=== PATIENT | male | born 1965 | race Caucasian/White ===

== ENCOUNTER 2022-04-02 17:56 | Inpatient (IN) | payer MEDICARE, MEDICAID, SELFPAY ==
[2022-04-02 18:00] VITALS: BP 113/68; PULSE 82; TEMP 36.2; O2SAT 95
--- NOTE | 2022-04-02 19:18 | PC.ADMIT ---
pt is 56 year male who present to [facility] after his locked him out and he was running down the street yelling at cars. pt reports a not great relationship with his and she did not refill his medication on time. during admission, pt is making involuntary movements and answering questions with long answers. pt had WNL vitals. pt reports to smoking, but does not want cessation. pt reports no visual hallucination, but is staring at something in the corner of the room. pt ate dinner and is lying in bed. start treatment plan and continue safety checks.
--- NOTE | 2022-04-02 19:22 | PC.NURSE ---
pt reported to smoking, but refused cessation
--- NOTE | 2022-04-03 | ECG_ITS ---
Test Reason : QTC CHECK Blood Pressure : / mmHG Vent. Rate : 071 BPM Atrial Rate : 071 BPM P-R Int : 150 ms QRS Dur : 086 ms QT Int : 370 ms P-R-T Axes : 059 -07 043 degrees QTc Int : 402 ms Normal sinus rhythm with sinus arrhythmia Normal ECG No previous ECGs available Referred By: James Ashby Electronically Signed By:ANEL SOTO MD
[2022-04-03 08:00] VITALS: BP 121/67; PULSE 53; TEMP 36
[2022-04-03 08:26] LABS: Estimated Average Glucose 126 mg/dL
[2022-04-03 08:29] LABS: Cholesterol 159 mg/dL; HDL Cholesterol 46 mg/dL; LDL Cholesterol Calculated 98 mg/dl; Magnesium 2.1 mg/dL (1.6-2.6); Triglycerides 78 mg/dL
[2022-04-03 08:50] LABS: Free T4 (Free Thyroxine) 1.11 ng/dL (0.71-1.85); Thyroid Stimulating Hormone 1.24 uIU/mL (0.32-4.0)
--- NOTE | 2022-04-03 08:54 | HO.PM.IMCN ---
History of Present Illness Data of Consult Service Date: 04/03/22 Primary Care Provider: Unknown Physician HPI Reason for consult: routine medical H&P This is a 56 yo M with a PMH of pre-DM and HTN who is admitted to . Medical consult has been requested for routine medical H&P per protocol. Pt is seen and examined on the inpatient psych unit. He denies any current medical complaints. States he has a history of pre-DM and takes metformin. He reports not being fully compliant with therapy. PMH Pre-diabetes HTN PSH Denies any surgical history FH Mental health issues SH Smokes tobacco, drinks alcohol infrequently -- less than once a month, denies illicit substance abuse PMFSH Social History Household Members: Spouse Housing: Apartment Do you presently have visiting nurse or other home services: No Patient Tobacco Use Status: Current everyday Tobacco user Tobacco use type: Cigarette Cigarette Packs Per Day: 1 Cigarettes Per Day: 20.0 Smoked in Last 30 Days: Yes Patient Interested in Nicotine Replacement: No Patient Given Instructions on How to Stop Smoking: Yes Date Education Initiated: 04/02/22 Second Hand Smoke Exposure: No Use of substances other than those prescribed or required for medical reasons: No Have you been hit, kicked, punched, or otherwise hurt by someone within the past year? If so, by whom?: No Do you feel safe in your current relationship?: Yes Is there a partner from a previous relationship who is making you feel unsafe now?: No Are you made to feel afraid or neglected: No Advance Directives: No Advance Directives Information Provided: Yes Do you have thoughts of harming others: None Do you have a plan to hurt others: No Plan Recently lost weight without trying: No How much weight loss: Not applicable Eating poorly because of decreased appetite: No Nutrition screen score: 0 Nutrition Risks: No Nutritional Risk Poor oral hygiene: No Meds Allergies Allergy/AdvReac Type Severity Reaction Status Date / Time No Known Allergies Allergy Verified 04/02/22 14:28 Active Medications: Current Medications Acetaminophen (Acetaminophen 325 Mg Tablet) 650 mg PO Q6H PRN PRN Reason: Headache/Pain Mild Scale (1-3) Al Hydroxide/Mg Hydroxide (Magnesium Hydrox/Alum Hydrox 30 Ml Oral.Susp) 30 ml PO Q6H PRN PRN Reason: Heartburn/Nausea Hydroxyzine HCl (Hydroxyzine Hcl 25 Mg Tablet) 25 mg PO Q6H PRN PRN Reason: Anxiety Magnesium Hydroxide (Milk Of Magnesia 30 Ml Oral.Susp) 30 ml PO DAILY PRN PRN Reason: Constipation Trazodone HCl (Trazodone Hcl 50 Mg Tablet) 50 mg PO BEDTIME PRN PRN Reason: Insomnia Physical Exam Vital Signs and Narrative: Vital Signs: Last Vital Signs Temp 97.1 F 04/02/22 18:00 Pulse 82 04/02/22 18:00 BP 113/68 04/02/22 18:00 Pulse Ox 95 04/02/22 18:00 O2 Del Method 04/02/22 18:00 Const: Other: Gen - awake and alert HEENT - EOMI CVS - S1S2, RRR Lungs - clear, no distress Abd - soft, nt Ext - no edema Neuro - non-focal exam; CN 2-12 intact bilaterally Results Labs Labs: Laboratory Results - last 24 hr 04/03/22 04/03/22 07:54 07:54 Estimat Average Glucose 126 Hemoglobin A1c % 6.0 Magnesium 2.1 Triglycerides 78 Cholesterol 159 LDL Cholesterol, Calc 98 HDL Cholesterol 46 TSH 1.24 Free T4 1.11 Assessment and Plan (1) Routine medical exam: Status: Acute Plan 56 yo M admitted to inpatient psych. Medical consult requested for routine medical H&P. Pt appears to be medically stable. He has a medical history of DM and HTN. Would recommend to continue his baseline medications. Will sign off at this time. Please reconsult if any questions. Pt seen/examined and case d/w Dr. Mosley.
--- NOTE | 2022-04-03 10:23 | P.HPPS_ITS ---
HPI Date of Service: 04/03/22 Chief Complaint: Anxiety Sources of Information: patient interviewed, chart reviewed and crisis/core team assessment reviewed HPI Subjective Notes: [place] Warning and Conditional Voluntary Narrative: Patient is a 56-year-old male with history of bipolar disorder (rule out schizoaffective) who presents for disorganized behavior, running down the street yelling and picked up by police, in the face of being off clozapine for several weeks. Patient is emotionally labile, disorganized in speech and behavior, talking in different intonations, singing and dancing around and is thus a limited historian; that said, he is trying to be cooperative; patient once got emotionally upset and late on the floor and banged his head (towards the crown of head). Patient says he has not slept for several days. He says he has been off Clozaril because he and his got in an argument and she has not picked up Clozaril script. He later said she gives him mixed messages on whether not he should take it and he gets confused. Denies any SI or HI; he denies any AVH; denies paranoid ideations. He says he wants to get back on clozapine. Denies any drug or alcohol abuse. Past Psychiatric History: Psychiatric admission October 2021 at [facility] Psychiatric admission November 2021 at [facility] He says he was admitted to [facility] a few months ago but there is no record insurance underwriter sales can find. Medical Evaluation Reviewed: Yes [facility], [facility] Medical History (Updated 04/03/22 @ 10:56 by James Ashby MD) CLAYTON (generalized anxiety disorder) Schizoaffective disorder Family History: Deferred for now Social History: Lives at home with his Substance History: Denies Trauma History: Deferred for now Diagnostics Vital Signs (24Hr): Vital Signs - 24 hr 04/02/22 18:00 Temperature 97.1 F Pulse Rate 82 Blood Pressure 113/68 Pulse Oximetry 95 Oxygen Delivery Method Room Air Labs Labs: Laboratory Results - last 48 hr 04/03/22 04/03/22 07:54 07:54 Estimat Average Glucose 126 Hemoglobin A1c % 6.0 Magnesium 2.1 Triglycerides 78 Cholesterol 159 LDL Cholesterol, Calc 98 HDL Cholesterol 46 TSH 1.24 Free T4 1.11 Meds/Allergies Allergies Allergies Allergy/AdvReac Type Severity Reaction Status Date / Time No Known Allergies Allergy Verified 04/02/22 14:28 Mental Status Exam Mental Status Exam Narrative: Pt is alert and oriented; behavior is cooperative, friendly and calm; patient is not in distress; dressed in casual attire with unkempt hair but adequate hygiene; mood and affect are labile; eye contact appropriate; Speech is odd rate, prosody, mild-moderately pressured, switching to different volumes; psychomotor agitation present; thought process can be goal directed but is also disorganized; Thought content is on various things, but mostly focused on wanting help;no delusional content or paranoid ideations expressed; denies any SI/HI. Denies AVH; Patients insight and judgment are impaired Assessment & Plan Assessment & Plan (1) Schizoaffective disorder: Status: Acute Code(s): F25.9 - Schizoaffective disorder, unspecified (2) CLAYTON (generalized anxiety disorder): Status: Acute Code(s): F41.1 - Generalized anxiety disorder Plan Patient is a 56-year-old male with history of bipolar disorder (rule out schizoaffective) who presents for disorganized behavior, running down the street yelling and picked up by police, in the face of being off clozapine for several weeks -patient wants to get back on clozapine; insurance underwriter sales restarted him in [place]; insurance underwriter sales also reviewed risks/side effects of clozapine which patient mostly already knew. PLAN: CV q15 min checks; will monitor, may need more frequent obs START Clozapine 25 mg BID; titrate to home dose of 300mg; ANC on 04/02 was 5.4 Clonazepam 0.5 mg b.i.d.; may need more as clozapine is titrated. 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
[2022-04-03 11:41] LABS: Folate 12.7 ng/mL (> or = 4.0); Vitamin B12 303 pg/mL (200-900)
[2022-04-03] MEDS: cloZAPine 25 MG TABLET PO (12:19)
[2022-04-03] MEDS: clonazePAM 0.5 MG TABLET PO (12:19)
[2022-04-03 18:00] VITALS: RESP 16
[2022-04-04 06:00] VITALS: BP 113/72; PULSE 80; RESP 20; TEMP 36.8; O2SAT 97
[2022-04-04] MEDS: clonazePAM 0.5 MG TABLET PO ×2 (08:38→19:53)
[2022-04-04] MEDS: cloZAPine 25 MG TABLET PO (08:39)
--- NOTE | 2022-04-04 13:59 | HO.PSYCHPN ---
Subjective Subjective Date of Service: 04/04/22 Reason For Visit: Anxiety Interim History: Chart reviewed. Discussed with Nursing. High energy and flight of ideas. Disruptive with roommate last night by turning the lights on consistently. Irritable this morning. Does appear to be slightly elated, pressured speech and flight of ideas. Denied depression. Denied paranoia or hallucinations. No SI. Aware Clozaril dose being titrated Medication Compliance: Yes Side effects from medications: No Attending Groups: No Review of Systems Acute medical concerns: No Review of Systems Review of Systems Unremarkable Mental Status Exam Mental Status Exam Narrative: Pleasant with fiction and nonfiction prose writer. Engaged. Self-care is poor. Pressured speech. Flight of ideas. Slightly elated. No SI or HI. No overt delusions or hallucinations. Insight and judgment does appear limited at times Diagnostics Vital Signs (24Hr): Vital Signs - 24 hr 04/03/22 18:00 04/04/22 06:00 Temperature 98.2 F Pulse Rate 80 Respiratory Rate 16 20 Blood Pressure 113/72 Pulse Oximetry 97 Oxygen Delivery Method Room Air Labs Labs: Laboratory Results - last 48 hr 04/03/22 04/03/22 04/03/22 07:54 07:54 07:54 Estimat Average Glucose 126 Hemoglobin A1c % 6.0 Magnesium 2.1 Triglycerides 78 Cholesterol 159 LDL Cholesterol, Calc 98 HDL Cholesterol 46 Vitamin B12 303 Folate 12.7 TSH 1.24 Free T4 1.11 Medications Medications Current Medications Acetaminophen (Acetaminophen 325 Mg Tablet) 650 mg PO Q6H PRN PRN Reason: Headache/Pain Mild Scale (1-3) Al Hydroxide/Mg Hydroxide (Magnesium Hydrox/Alum Hydrox 30 Ml Oral.Susp) 30 ml PO Q6H PRN PRN Reason: Heartburn/Nausea Clonazepam (Clonazepam 0.5 Mg Tablet) 0.5 mg PO BID [facility] Last Admin: 04/04/22 08:38 Dose: 0.5 mg Clozapine (Clozapine 25 Mg Tablet) 25 mg PO BID [facility] Last Admin: 04/04/22 08:39 Dose: 25 mg Hydroxyzine HCl (Hydroxyzine Hcl 25 Mg Tablet) 25 mg PO Q6H PRN PRN Reason: Anxiety Magnesium Hydroxide (Milk Of Magnesia 30 Ml Oral.Susp) 30 ml PO DAILY PRN PRN Reason: Constipation Trazodone HCl (Trazodone Hcl 50 Mg Tablet) 50 mg PO BEDTIME PRN PRN Reason: Insomnia Allergies Allergies Allergy/AdvReac Type Severity Reaction Status Date / Time No Known Allergies Allergy Verified 04/02/22 14:28 Assessment & Plan Assessment & Plan (1) Schizoaffective disorder: Status: Acute Code(s): F25.9 - Schizoaffective disorder, unspecified (2) CLAYTON (generalized anxiety disorder): Status: Acute Code(s): F41.1 - Generalized anxiety disorder Plan Patient is a 56-year-old male with history of bipolar disorder (rule out schizoaffective) who presents for disorganized behavior, running down the street yelling and picked up by police, in the face of being off clozapine for several weeks -patient wants to get back on clozapine; fiction and nonfiction prose writer restarted him in [employer]; fiction and nonfiction prose writer also reviewed risks/side effects of clozapine which patient mostly already knew. PLAN: CV q15 min checks; will monitor, may need more frequent obs START Clozapine 25 mg BID; titrate to home dose of 300mg; ANC on 04/02 was 5.4 Clonazepam 0.5 mg b.i.d.; may need more as clozapine is titrated. Straight Knife Cutter Machine Reviewed Labs from [place] [facility] where pt transfered from: CBC, Lytes, Bun/Cr, Ca, UA, UDS all WNL 04/04/2022: Will increase nighttime Clozaril to 50 mg, with AM clozapine 25mg I spent minutes with the patient and/or on the patient floor today, greater than?50% of which was spent counseling/coordinating care. Reason for contiued inpatient stay Substantial Risk for: inability to function
[2022-04-04 18:00] VITALS: BP 129/78; PULSE 76; RESP 16; TEMP 36.6; O2SAT 97
[2022-04-04] MEDS: cloZAPine 25 MG TABLET 50 MG PO (19:53)
[2022-04-05 06:00] VITALS: BP 114/78; PULSE 79; RESP 20; TEMP 36.4; O2SAT 97
[2022-04-05] MEDS: cloZAPine 25 MG TABLET PO (09:12)
[2022-04-05] MEDS: clonazePAM 0.5 MG TABLET PO ×2 (09:12→19:42)
--- NOTE | 2022-04-05 12:02 | P.PNPSI_ITS ---
Subjective Subjective Date of Service: 04/05/22 Reason For Visit: Anxiety Interim History: Has been irritable in the community. Actively hallucinating. Irritable this morning. Does appear to be elated, pressured speech and flight of ideas. Denied depression. Denied paranoia or hallucinations. No SI. Aware Clozaril dose being titrated Medication Compliance: Yes Side effects from medications: No Attending Groups: Intermittent Review of Systems Acute medical concerns: No Review of Systems Review of Systems Unremarkable Mental Status Exam Mental Status Exam Narrative: Pleasant with underwriter solicitation director. Engaged. Self-care is poor. Pressured speech. Flight of ideas. Slightly elated. No SI or HI. No overt delusions or hallucinations. Insight and judgment does appear limited at times Diagnostics Vital Signs (24Hr): Vital Signs - 24 hr 04/04/22 18:00 04/05/22 06:00 Temperature 97.8 F 97.6 F Pulse Rate 76 79 Respiratory Rate 16 20 Blood Pressure 129/78 114/78 Pulse Oximetry 97 97 Oxygen Delivery Method Room Air Room Air Medications Medications Current Medications Acetaminophen (Acetaminophen 325 Mg Tablet) 650 mg PO Q6H PRN PRN Reason: Headache/Pain Mild Scale (1-3) Al Hydroxide/Mg Hydroxide (Magnesium Hydrox/Alum Hydrox 30 Ml Oral.Susp) 30 ml PO Q6H PRN PRN Reason: Heartburn/Nausea Clonazepam (Clonazepam 0.5 Mg Tablet) 0.5 mg PO BID [facility] Last Admin: 04/05/22 09:12 Dose: 0.5 mg Clozapine (Clozapine 25 Mg Tablet) 25 mg PO DAILY [facility] Last Admin: 04/05/22 09:12 Dose: 25 mg Clozapine (Clozapine 25 Mg Tablet) 50 mg PO BEDTIME [facility] Last Admin: 04/04/22 19:53 Dose: 50 mg Hydroxyzine HCl (Hydroxyzine Hcl 25 Mg Tablet) 25 mg PO Q6H PRN PRN Reason: Anxiety Magnesium Hydroxide (Milk Of Magnesia 30 Ml Oral.Susp) 30 ml PO DAILY PRN PRN Reason: Constipation Trazodone HCl (Trazodone Hcl 50 Mg Tablet) 50 mg PO BEDTIME PRN PRN Reason: Insomnia Allergies Allergies Allergy/AdvReac Type Severity Reaction Status Date / Time No Known Allergies Allergy Verified 04/02/22 14:28 Assessment & Plan Assessment & Plan (1) Schizoaffective disorder: Status: Acute Code(s): F25.9 - Schizoaffective disorder, unspecified (2) CLAYTON (generalized anxiety disorder): Status: Acute Code(s): F41.1 - Generalized anxiety disorder Plan Patient is a 56-year-old male with history of bipolar disorder (rule out schizoaffective) who presents for disorganized behavior, running down the street yelling and picked up by police, in the face of being off clozapine for several weeks -patient wants to get back on clozapine; underwriter solicitation director restarted him in [employer]; underwriter solicitation director a lso reviewed risks/side effects of clozapine which patient mostly already knew. PLAN: CV q15 min checks; will monitor, may need more frequent obs START Clozapine 25 mg BID; titrate to home dose of 300mg; ANC on 04/02 was 5.4 Clonazepam 0.5 mg b.i.d.; may need more as clozapine is titrated. Center Manager Reviewed Labs from [place] [facility] where pt transfered from: CBC, Lytes, Bun/Cr, Ca, UA, UDS all WNL 04/04/2022: Will increase nighttime Clozaril to 50 mg, with AM clozapine 25mg 04/05/2022: Will increase nighttime Clozaril to 75 mg and continue a.m. Clozaril 25 mg I spent minutes with the patient and/or on the patient floor today, greater than?50% of which was spent counseling/coordinating care. Reason for contiued inpatient stay Substantial Risk for: harm to others and inability to function
[2022-04-05 18:00] VITALS: BP 143/77; PULSE 100; RESP 16; TEMP 36.3; O2SAT 99
[2022-04-05] MEDS: cloZAPine 25 MG TABLET 75 MG PO (19:42)
[2022-04-06 08:09] VITALS: BP 137/90; PULSE 82; RESP 16; TEMP 36.8; O2SAT 98
[2022-04-06] MEDS: clonazePAM 0.5 MG TABLET PO ×3 (08:42→23:32)
[2022-04-06] MEDS: cloZAPine 25 MG TABLET PO (08:42)
[2022-04-06] MEDS: OLANZapine 2.5 MG TABLET PO ×2 (14:11→23:31)
--- NOTE | 2022-04-06 16:17 | P.PNPSI_ITS ---
Subjective Subjective Date of Service: 04/06/22 Reason For Visit: Anxiety Interim History: Patient remains manic, dramatically flopping to the ground at times, spinning and dancing leaping in the hallway, singing; odd intonation. Over the weekend, Patient upset was not given permission to shave; policy writer typist discussed with patient and explained if he was able to nod flail his arms with a razor, he could shave; initially gratefully accepted plan, however then got very upset and yelled about it. Patient was able to calm self down and later in the day was able to successfully shape without problems. Patient shared with policy writer typist that in the past he is taking Zyprexa as well and agrees to having it scheduled and available as a p.r.n. while clozapine is titrating Mental Status Exam Mental Status Exam Narrative: Pt is alert and oriented; behavior is disorganized and while sometimes calm, cooperative and friendly, often hyperactive, dancing, leaping and easily agitated; patient is not in distress; dressed in casual attire with scruffy facial hair but adequate hygiene; mood and affect are labile; eye contact appropriate; Speech is odd rate, prosody, mild-moderately pressured, switching to different volumes; psychomotor agitation present; thought process can be goal directed but is also disorganized; Thought content is on various things, but mostly focused on wanting help;no delusional content or paranoid ideations expressed; denies any SI/HI. Denies AVH; Patients insight and judgment are impaired Diagnostics Vital Signs (24Hr): Vital Signs - 24 hr 04/05/22 18:00 04/06/22 08:09 Temperature 97.4 F 98.3 F Pulse Rate 100 82 Respiratory Rate 16 16 Blood Pressure 143/77 H 137/90 H Pulse Oximetry 99 98 Oxygen Delivery Method Room Air Room Air Medications Medications Current Medications Acetaminophen (Acetaminophen 325 Mg Tablet) 650 mg PO Q6H PRN PRN Reason: Headache/Pain Mild Scale (1-3) Al Hydroxide/Mg Hydroxide (Magnesium Hydrox/Alum Hydrox 30 Ml Oral.Susp) 30 ml PO Q6H PRN PRN Reason: Heartburn/Nausea Clonazepam (Clonazepam 0.5 Mg Tablet) 0.5 mg PO TID [facility] Last Admin: 04/06/22 14:11 Dose: 0.5 mg Clozapine (Clozapine 25 Mg Tablet) 25 mg PO DAILY [facility] Last Admin: 04/06/22 08:42 Dose: 25 mg Clozapine (Clozapine 100 Mg Tablet) 100 mg PO BEDTIME [facility] Hydroxyzine HCl (Hydroxyzine Hcl 25 Mg Tablet) 25 mg PO Q6H PRN PRN Reason: Anxiety Lorazepam (Lorazepam 1 Mg Tablet) 1 mg PO TID PRN PRN Reason: agitation/anxiety Magnesium Hydroxide (Milk Of Magnesia 30 Ml Oral.Susp) 30 ml PO DAILY PRN PRN Reason: Constipation Olanzapine (Olanzapine 2.5 Mg Tablet) 2.5 mg PO TID PRN PRN Reason: anxiety/agitation Last Admin: 04/06/22 14:11 Dose: 2.5 mg Olanzapine (Olanzapine 2.5 Mg Tablet) 2.5 mg PO BID [facility] Trazodone HCl (Trazodone Hcl 50 Mg Tablet) 50 mg PO BEDTIME PRN PRN Reason: Insomnia Allergies Allergies Allergy/AdvReac Type Severity Reaction Status Date / Time No Known Allergies Allergy Verified 04/02/22 14:28 Assessment & Plan Assessment & Plan (1) Schizoaffective disorder: Status: Acute Code(s): F25.9 - Schizoaffective disorder, unspecified (2) CLAYTON (generalized anxiety disorder): Status: Acute Code(s): F41.1 - Generalized anxiety disorder Plan Patient is a 56-year-old male with history of bipolar disorder (rule out schizoaffective) who presents for disorganized behavior, running down the street yelling and picked up by police, in the face of being off clozapine for several weeks -patient wants to get back on clozapine; policy writer typist restarted him in [place]; policy writer typist also reviewed risks/side effects of clozapine which patient mostly already knew. 04/04/2022: Will increase nighttime Clozaril to 50 mg, with AM clozapine 25mg 04/05/2022: Will increase nighttime Clozaril to 75 mg and continue a.m. Clozaril 25 mg 04/06/22 remains disorganized, manic, singing, dancing and easily triggered into anger however has remained redirectable. Agrees to Zyprexa both scheduled and as p.r.n. for agitation while clozapine is titrating. Says he is taking in the past. PLAN: CV q15 min checks; will monitor, may need more frequent obs Clozapine 25mg Qam Clozapine 100mg qhs (will titrate total daily dose to home dose of 300mg; ANC on 04/02 was 5.4 Added Zyprexa 2.5mg BID scheduled (will see if low-dose is sufficient) Added Ativan and zyprexa as PRN Increased to Clonazepam 0.5 mg T.i.d.; may need more as clozapine is titrated. Highway Worker Reviewed Labs from [place] [facility] where pt transfered from: CBC, Lytes, Bun/Cr, Ca, UA, UDS all WNL I spent minutes with the patient and/or on the patient floor today, greater than?50% of which was spent counseling/coordinating care. Patient educated on: diagnosis and medication risk/benefits Informed Consent: understands and further education needed Reason for contiued inpatient stay Substantial Risk for: inability to function
[2022-04-06] MEDS: LORazepam 1 MG TABLET PO (17:33)
[2022-04-06 17:35] VITALS: BP 131/83; PULSE 95; TEMP 37.1
[2022-04-06] MEDS: cloZAPine 100 MG TABLET PO (23:31)
[2022-04-07 07:45] VITALS: BP 129/82; PULSE 93; RESP 16; TEMP 36.6; O2SAT 98
[2022-04-07] MEDS: OLANZapine 2.5 MG TABLET PO ×2 (07:56→21:10)
[2022-04-07] MEDS: clonazePAM 0.5 MG TABLET PO ×3 (07:56→21:10)
[2022-04-07] MEDS: cloZAPine 25 MG TABLET PO (07:56)
--- NOTE | 2022-04-07 10:25 | HO.PSYCHPN ---
Subjective Subjective Date of Service: 04/07/22 Reason For Visit: Anxiety Interim History: Patient more behaviorally calm today Overnight, patient got very upset and ripped his T shirt however he was redirectable.Today, with Zyprexa 2.5 b.i.d..? Coin Machine Collector Supervisor discussed this with patient to agrees.? He said that he took Zyprexa in the 90s and liked it.? Patient said that he used to be on clozapine 400 mg but it was reduced to 300.? He said a at some time he hopes to see if clozapine 200 mg would be sufficient.? He agrees however to get back to 300 mg and his baseline and then once stable to work with outpatient provider to see if he can lower dose at that time Mental Status Exam Mental Status Exam Narrative: Pt is alert and oriented; behavior is disorganized and while sometimes calm, cooperative and friendly, often hyperactive, dancing, leaping and easily agitated; patient is not in distress; dressed in casual attire with scruffy facial hair but adequate hygiene; mood and affect are labile; eye contact appropriate; Speech is odd rate, prosody, mild-moderately pressured, switching to different volumes; psychomotor agitation present; thought process can be goal directed but is also disorganized; Thought content is on various things, but mostly focused on wanting help;no delusional content or paranoid ideations expressed; denies any SI/HI. Denies AVH; Patients insight and judgment are impaired Diagnostics Vital Signs (24Hr): Vital Signs - 24 hr 04/06/22 17:35 04/07/22 07:45 Temperature 98.7 F 97.8 F Pulse Rate 95 93 Respiratory Rate 16 Blood Pressure 131/83 129/82 Pulse Oximetry 98 Oxygen Delivery Method Room Air Medications Medications Current Medications Acetaminophen (Acetaminophen 325 Mg Tablet) 650 mg PO Q6H PRN PRN Reason: Headache/Pain Mild Scale (1-3) Al Hydroxide/Mg Hydroxide (Magnesium Hydrox/Alum Hydrox 30 Ml Oral.Susp) 30 ml PO Q6H PRN PRN Reason: Heartburn/Nausea Clonazepam (Clonazepam 0.5 Mg Tablet) 0.5 mg PO TID [facility] Last Admin: 04/07/22 07:56 Dose: 0.5 mg Clozapine (Clozapine 25 Mg Tablet) 25 mg PO DAILY [facility] Last Admin: 04/07/22 07:56 Dose: 25 mg Hydroxyzine HCl (Hydroxyzine Hcl 25 Mg Tablet) 25 mg PO Q6H PRN PRN Reason: Anxiety Lorazepam (Lorazepam 1 Mg Tablet) 1 mg PO TID PRN PRN Reason: agitation/anxiety Last Admin: 04/06/22 17:33 Dose: 1 mg Magnesium Hydroxide (Milk Of Magnesia 30 Ml Oral.Susp) 30 ml PO DAILY PRN PRN Reason: Constipation Olanzapine (Olanzapine 2.5 Mg Tablet) 2.5 mg PO TID PRN PRN Reason: anxiety/agitation Last Admin: 04/06/22 14:11 Dose: 2.5 mg Olanzapine (Olanzapine 2.5 Mg Tablet) 2.5 mg PO BID [facility] Last Admin: 04/07/22 07:56 Dose: 2.5 mg Trazodone HCl (Trazodone Hcl 50 Mg Tablet) 50 mg PO BEDTIME PRN PRN Reason: Insomnia Allergies Allergies Allergy/AdvReac Type Severity Reaction Status Date / Time No Known Allergies Allergy Verified 04/02/22 14:28 Assessment & Plan Assessment & Plan (1) Schizoaffective disorder: Status: Acute Code(s): F25.9 - Schizoaffective disorder, unspecified (2) CLAYTON (generalized anxiety disorder): Status: Acute Code(s): F41.1 - Generalized anxiety disorder Plan Patient is a 56-year-old male with history of bipolar disorder (rule out schizoaffective) who presents for disorganized behavior, running down the street yelling and picked up by police, in the face of being off clozapine for several weeks -patient wants to get back on clozapine; physician underwriter restarted him in [employer]; physician underwriter also reviewed risks/side effects of clozapine which patient mostly already knew. 04/04/2022: Will increase nighttime Clozaril to 50 mg, with AM clozapine 25mg 04/05/2022: Will increase nighttime Clozaril to 75 mg and continue a.m. Clozaril 25 mg 04/06/22 remains disorganized, manic, singing, dancing and easily triggered into anger however has remained redirectable. Agrees to Zyprexa both scheduled and as p.r.n. for agitation while clozapine is titrating. Says he is taking in the past. 04/07 Mild improvement with Zyprexa 2.5 b.i.d. and clonazepam increase to t.i.d. , both scheduled.? Continue to titrate clozapine PLAN: CV q15 min checks; Clozapine 25mg Qam TITRATE Clozapine; increased to 125mg qhs (will titrate total daily dose to home dose of 300mg; ANC on 04/02 was 5.4 Added Zyprexa 2.5mg BID scheduled (will see if low-dose is sufficient) Added Ativan and zyprexa as PRN Increased to Clonazepam 0.5 mg T.i.d.; may need more as clozapine is titrated. Coin Machine Collector Supervisor Reviewed Labs from [place] [facility] where pt transfered from: CBC, Lytes, Bun/Cr, Ca, UA, UDS all WNL I spent minutes with the patient and/or on the patient floor today, greater than?50% of which was spent counseling/coordinating care. Patient educated on: diagnosis and medication risk/benefits Informed Consent: understands Reason for contiued inpatient stay Substantial Risk for: inability to function
[2022-04-07 21:00] VITALS: BP 119/59; PULSE 89; TEMP 36.6
[2022-04-07] MEDS: cloZAPine 25 MG TABLET 125 MG PO (21:10)
[2022-04-08 07:45] VITALS: BP 124/74; PULSE 96; TEMP 35.9; O2SAT 98
--- NOTE | 2022-04-08 08:47 | HO.PSYCHPN ---
Subjective Subjective Date of Service: 04/08/22 Reason For Visit: Anxiety Interim History: Patient remains animated and dancing around in the hallway, however less so than previously and overall more calm. Patient has tied up his hospital gown and sure it into abrade that he wears around his arm and bizarre fashion. He says he likes to Braid. He is sleeping well and feels that medications are helping. No complaints and no requests. Mental Status Exam Mental Status Exam Narrative: Pt is alert and oriented; behavior is disorganized and while more calm overall, can also be hyperactive, dancing, leaping and easily agitated; patient is not in distress; dressed in casual attire with scruffy facial hair but adequate hygiene; mood and affect are labile; eye contact appropriate; Speech is odd rate, prosody, mild-moderately pressured, switching to different volumes; psychomotor agitation present; thought process can be goal directed but is also disorganized; Thought content is on various things, but mostly focused on wanting help;no delusional content or paranoid ideations expressed; denies any SI/HI. Denies AVH; Patients insight and judgment are impaired Diagnostics Vital Signs (24Hr): Vital Signs - 24 hr 04/07/22 21:00 Temperature 97.8 F Pulse Rate 89 Blood Pressure 119/59 L Medications Medications Current Medications Acetaminophen (Acetaminophen 325 Mg Tablet) 650 mg PO Q6H PRN PRN Reason: Headache/Pain Mild Scale (1-3) Al Hydroxide/Mg Hydroxide (Magnesium Hydrox/Alum Hydrox 30 Ml Oral.Susp) 30 ml PO Q6H PRN PRN Reason: Heartburn/Nausea Clonazepam (Clonazepam 0.5 Mg Tablet) 0.5 mg PO TID [facility] Last Admin: 04/07/22 21:10 Dose: 0.5 mg Clozapine (Clozapine 25 Mg Tablet) 25 mg PO DAILY [facility] Last Admin: 04/07/22 07:56 Dose: 25 mg Clozapine (Clozapine 25 Mg Tablet) 125 mg PO BEDTIME [facility] Last Admin: 04/07/22 21:10 Dose: 125 mg Hydroxyzine HCl (Hydroxyzine Hcl 25 Mg Tablet) 25 mg PO Q6H PRN PRN Reason: Anxiety Lorazepam (Lorazepam 1 Mg Tablet) 1 mg PO TID PRN PRN Reason: agitation/anxiety Last Admin: 04/06/22 17:33 Dose: 1 mg Magnesium Hydroxide (Milk Of Magnesia 30 Ml Oral.Susp) 30 ml PO DAILY PRN PRN Reason: Constipation Olanzapine (Olanzapine 2.5 Mg Tablet) 2.5 mg PO TID PRN PRN Reason: anxiety/agitation Last Admin: 04/06/22 14:11 Dose: 2.5 mg Olanzapine (Olanzapine 2.5 Mg Tablet) 2.5 mg PO BID [facility] Last Admin: 04/07/22 21:10 Dose: 2.5 mg Trazodone HCl (Trazodone Hcl 50 Mg Tablet) 50 mg PO BEDTIME PRN PRN Reason: Insomnia Allergies Allergies Allergy/AdvReac Type Severity Reaction Status Date / Time No Known Allergies Allergy Verified 04/02/22 14:28 Assessment & Plan Assessment & Plan (1) Schizoaffective disorder: Status: Acute Code(s): F25.9 - Schizoaffective disorder, unspecified (2) CLAYTON (generalized anxiety disorder): Status: Acute Code(s): F41.1 - Generalized anxiety disorder Plan Patient is a 56-year-old male with history of bipolar disorder (rule out schizoaffective) who presents for disorganized behavior, running down the street yelling and picked up by police, in the face of being off clozapine for several weeks -patient wants to get back on clozapine; pattern chart writer restarted him in [employer]; pattern chart writer also reviewed risks/side effects of clozapine which patient mostly already knew. 04/04/2022: Will increase nighttime Clozaril to 50 mg, with AM clozapine 25mg 04/05/2022: Will increase nighttime Clozaril to 75 mg and continue a.m. Clozaril 25 mg 04/06/22 remains disorganized, manic, singing, dancing and easily triggered into anger however has remained redirectable. Agrees to Zyprexa both scheduled and as p.r.n. for agitation while clozapine is titrating. Says he is taking in the past. 04/07 Mild improvement with Zyprexa 2.5 b.i.d. and clonazepam increase to t.i.d. , both scheduled.? Continue to titrate clozapine 04/08 continue with clozapine titration PLAN: CV q15 min checks; Continue Clozapine 25mg Qam TITRATE Clozapine; increased to 150mg qhs (will titrate total daily dose to home dose of 300mg; ANC on 04/02 was 5.4 Added Zyprexa 2.5mg BID scheduled (will see if low-dose is sufficient) Added Ativan and zyprexa as PRN Increased to Clonazepam 0.5 mg T.i.d.; may need more as clozapine is titrated. Security Intelligence Analyst Reviewed Labs from [place] [facility] where pt transfered from: CBC, Lytes, Bun/Cr, Ca, UA, UDS all WNL I spent minutes with the patient and/or on the patient floor today, greater than?50% of which was spent counseling/coordinating care. Patient educated on: diagnosis and medication risk/benefits Informed Consent: understands Reason for contiued inpatient stay Substantial Risk for: inability to function
[2022-04-08] MEDS: clonazePAM 0.5 MG TABLET PO ×3 (09:12→19:45)
[2022-04-08] MEDS: cloZAPine 25 MG TABLET PO (09:12)
[2022-04-08] MEDS: OLANZapine 2.5 MG TABLET PO ×2 (09:12→19:45)
[2022-04-08 16:29] VITALS: BP 138/81; PULSE 99; RESP 16; TEMP 36.8; O2SAT 98
[2022-04-08] MEDS: cloZAPine 25 MG TABLET 150 MG PO (19:45)
[2022-04-09 06:00] VITALS: BP 121/75; PULSE 97; RESP 16; TEMP 36.4; O2SAT 97
[2022-04-09 07:59] LABS: Neut%MD 63.1 %; Neutrophils Absolute Auto 3.4 x10*3/uL (2.0-8.3); WBCANC 5.4 X10*3/uL
[2022-04-09] MEDS: clonazePAM 0.5 MG TABLET PO ×3 (08:18→19:55)
[2022-04-09] MEDS: OLANZapine 2.5 MG TABLET PO ×2 (08:18→19:55)
[2022-04-09] MEDS: cloZAPine 25 MG TABLET PO (08:18)
--- NOTE | 2022-04-09 10:35 | PC.NURSE ---
pt has rash on bilateral forearms; complains of itching which began last evening (04/08/22); provider notified
--- NOTE | 2022-04-09 12:17 | HO.PSYCHPN ---
Subjective Subjective Date of Service: 04/09/22 Reason For Visit: Anxiety Subjective Notes: Conditional Voluntary Interim History: The nursing staff reported that the patient was over-sedated today in the morning after receiving clozapine 25. The staff reported that he had been eating well and sleeping with medications On interview the patient remains slightly disorganized and delusional but cooperative and pleasant. He denies side effects with the current treatment. Mental Status Exam Mental Status Exam Patient Appearance: Appropriate and Bizarre Patient Orientation: Person, Place and Situation Level of Consciousness: Awake and Appropriate Patient Behavior: Guarded and Passive Mood Description: Appropriate and Cheerful Affect Description: Labile Patient Cognition Impaired: No Ability to Follow Directions: Fair Speech Pattern: Mumbled and Rapid Hallucinations: None Delusions: Paranoid Ideation Thought Process: Illogical and Distracted Thought Content: positive for [place] Judgement: Poor Diagnostics Vital Signs (24Hr): Vital Signs - 24 hr 04/08/22 16:29 04/09/22 06:00 Temperature 98.2 F 97.6 F Pulse Rate 99 97 Respiratory Rate 16 16 Blood Pressure 138/81 121/75 Pulse Oximetry 98 97 Oxygen Delivery Method Room Air Room Air Labs Labs: Laboratory Results - last 48 hr 04/09/22 07:26 Absolute Neuts (auto) 3.4 Medications Medications Current Medications Acetaminophen (Acetaminophen 325 Mg Tablet) 650 mg PO Q6H PRN PRN Reason: Headache/Pain Mild Scale (1-3) Al Hydroxide/Mg Hydroxide (Magnesium Hydrox/Alum Hydrox 30 Ml Oral.Susp) 30 ml PO Q6H PRN PRN Reason: Heartburn/Nausea Clonazepam (Clonazepam 0.5 Mg Tablet) 0.5 mg PO TID [facility] Last Admin: 04/09/22 08:18 Dose: 0.5 mg Clozapine (Clozapine 25 Mg Tablet) 25 mg PO DAILY [facility] Last Admin: 04/09/22 08:18 Dose: 25 mg Clozapine (Clozapine 25 Mg Tablet) 150 mg PO BEDTIME [facility] Last Admin: 04/08/22 19:45 Dose: 150 mg Hydroxyzine HCl (Hydroxyzine Hcl 25 Mg Tablet) 25 mg PO Q6H PRN PRN Reason: Anxiety Lorazepam (Lorazepam 1 Mg Tablet) 1 mg PO TID PRN PRN Reason: agitation/anxiety Last Admin: 04/06/22 17:33 Dose: 1 mg Magnesium Hydroxide (Milk Of Magnesia 30 Ml Oral.Susp) 30 ml PO DAILY PRN PRN Reason: Constipation Olanzapine (Olanzapine 2.5 Mg Tablet) 2.5 mg PO TID PRN PRN Reason: anxiety/agitation Last Admin: 04/06/22 14:11 Dose: 2.5 mg Olanzapine (Olanzapine 2.5 Mg Tablet) 2.5 mg PO BID [facility] Last Admin: 04/09/22 08:18 Dose: 2.5 mg Trazodone HCl (Trazodone Hcl 50 Mg Tablet) 50 mg PO BEDTIME PRN PRN Reason: Insomnia Allergies Allergies Allergy/AdvReac Type Severity Reaction Status Date / Time No Known Allergies Allergy Verified 04/02/22 14:28 Assessment & Plan Assessment & Plan (1) Schizoaffective disorder: Status: Acute Code(s): F25.9 - Schizoaffective disorder, unspecified (2) CLAYTON (generalized anxiety disorder): Status: Acute Code(s): F41.1 - Generalized anxiety disorder Plan Patient is a 56-year-old male with history of bipolar disorder (rule out schizoaffective) who presents for disorganized behavior, running down the street yelling and picked up by police, in the face of being off clozapine for several weeks -patient wants to get back on clozapine; junior underwriter restarted him in [employer]; junior underwriter also reviewed risks/side effects of clozapine which patient mostly already knew. 04/04/2022: Will increase nighttime Clozaril to 50 mg, with AM clozapine 25mg 04/05/2022: Will increase nighttime Clozaril to 75 mg and continue a.m. Clozaril 25 mg 04/06/22 remains disorganized, manic, singing, dancing and easily triggered into anger however has remained redirectable. Agrees to Zyprexa both scheduled and as p.r.n. for agitation while clozapine is titrating. Says he is taking in the past. 04/07 Mild improvement with Zyprexa 2.5 b.i.d. and clonazepam increase to t.i.d. , both scheduled.? Continue to titrate clozapine 04/08 continue with clozapine titration 04/09 keep same treatment, slight sedation during the morning. PLAN: CV q15 min checks; Continue Clozapine 25mg Qam TITRATE Clozapine; increased to 150mg qhs (will titrate total daily dose to home dose of 300mg; ANC on 04/02 was 5.4 Added Zyprexa 2.5mg BID scheduled (will see if low-dose is sufficient) Added Ativan and zyprexa as PRN Increased to Clonazepam 0.5 mg T.i.d.; may need more as clozapine is titrated. Marketing Information Coordinator Reviewed Labs from [facility] where pt transfered from: CBC, Lytes, Bun/Cr, Ca, UA, UDS all WNL I spent minutes with the patient and/or on the patient floor today, greater than?50% of which was spent counseling/coordinating care. Reason for contiued inpatient stay Substantial Risk for: inability to function, rapid decompensation and med/psych decompensation
[2022-04-09 16:23] VITALS: BP 135/86; PULSE 88; RESP 16; TEMP 35.9; O2SAT 97
[2022-04-09] MEDS: cloZAPine 25 MG TABLET 150 MG PO (19:56)
[2022-04-10 06:00] VITALS: BP 115/75; PULSE 109; RESP 15; TEMP 36.6; O2SAT 98
[2022-04-10] MEDS: cloZAPine 25 MG TABLET PO (08:32)
[2022-04-10] MEDS: OLANZapine 2.5 MG TABLET PO ×2 (08:33→22:30)
[2022-04-10] MEDS: clonazePAM 0.5 MG TABLET PO ×3 (08:33→22:30)
--- NOTE | 2022-04-10 14:32 | HO.PSYCHPN ---
Subjective Subjective Date of Service: 04/10/22 Reason For Visit: Anxiety Interim History: Pleasant and social on approach. Discussed the loss of sleep for several days prior to admission and how he is feeling better with more sleep. Discussed events and symptoms prior to his admission and the fear he had, not knowing what was happening to him. Denies SI, HI. Denies current fears or concerns. Reports medications are tolerated and helpful. Medication Compliance: Yes Side effects from medications: No Attending Groups: Intermittent Review of Systems Acute medical concerns: No Medical Review of Systems: unchanged Mental Status Exam Mental Status Exam Patient Appearance: Well Grooomed Patient Orientation: Person, Place, Time and Situation Level of Consciousness: Alert Patient Behavior: Talkative and Good Eye Contact Mood Description: Apprehensive Affect Description: Flat Patient Cognition Impaired: No Ability to Follow Directions: Good Speech Pattern: Spontaneous Speech Memory Description: Episodic Impaired Hallucinations: None Perceptual Disturbances: Derealization Thought Content: positive for [place], positive for Circumstantial and positive for Suicidal Ideation (denies) Depressive Symptoms: Insomnia and Difficulty Sleeping Judgement: Fair Diagnostics Vital Signs (24Hr): Vital Signs - 24 hr 04/09/22 16:23 04/10/22 06:00 Temperature 96.7 F L 97.8 F Pulse Rate 88 109 H Respiratory Rate 16 15 Blood Pressure 135/86 115/75 Pulse Oximetry 97 98 Oxygen Delivery Method Room Air Room Air Labs Labs: Laboratory Results - last 48 hr 04/09/22 07:26 Absolute Neuts (auto) 3.4 Medications Medications Current Medications Acetaminophen (Acetaminophen 325 Mg Tablet) 650 mg PO Q6H PRN PRN Reason: Headache/Pain Mild Scale (1-3) Al Hydroxide/Mg Hydroxide (Magnesium Hydrox/Alum Hydrox 30 Ml Oral.Susp) 30 ml PO Q6H PRN PRN Reason: Heartburn/Nausea Clonazepam (Clonazepam 0.5 Mg Tablet) 0.5 mg PO TID [facility] Last Admin: 04/10/22 14:04 Dose: 0.5 mg Clozapine (Clozapine 25 Mg Tablet) 25 mg PO DAILY [facility] Last Admin: 04/10/22 08:32 Dose: 25 mg Clozapine (Clozapine 25 Mg Tablet) 150 mg PO BEDTIME [facility] Last Admin: 04/09/22 19:56 Dose: 150 mg Hydroxyzine HCl (Hydroxyzine Hcl 25 Mg Tablet) 25 mg PO Q6H PRN PRN Reason: Anxiety Lorazepam (Lorazepam 1 Mg Tablet) 1 mg PO TID PRN PRN Reason: agitation/anxiety Last Admin: 04/06/22 17:33 Dose: 1 mg Magnesium Hydroxide (Milk Of Magnesia 30 Ml Oral.Susp) 30 ml PO DAILY PRN PRN Reason: Constipation Olanzapine (Olanzapine 2.5 Mg Tablet) 2.5 mg PO TID PRN PRN Reason: anxiety/agitation Last Admin: 04/06/22 14:11 Dose: 2.5 mg Olanzapine (Olanzapine 2.5 Mg Tablet) 2.5 mg PO BID [facility] Last Admin: 04/10/22 08:33 Dose: 2.5 mg Trazodone HCl (Trazodone Hcl 50 Mg Tablet) 50 mg PO BEDTIME PRN PRN Reason: Insomnia Allergies Allergies Allergy/AdvReac Type Severity Reaction Status Date / Time No Known Allergies Allergy Verified 04/02/22 14:28 Assessment & Plan Assessment & Plan (1) Schizoaffective disorder: Status: Acute Code(s): F25.9 - Schizoaffective disorder, unspecified (2) CLAYTON (generalized anxiety disorder): Status: Acute Code(s): F41.1 - Generalized anxiety disorder Plan Patient is a 56-year-old male with history of bipolar disorder (rule out schizoaffective) who presents for disorganized behavior, running down the street yelling and picked up by police, in the face of being off clozapine for several weeks -patient wants to get back on clozapine; mortgage loan underwriter restarted him in [employer]; mortgage loan underwriter also reviewed risks/side effects of clozapine which patient mostly already knew. 04/04/2022: Will increase nighttime Clozaril to 50 mg, with AM clozapine 25mg 04/05/2022: Will increase nighttime Clozaril to 75 mg and continue a.m. Clozaril 25 mg 04/06/22 remains disorganized, manic, singing, dancing and easily triggered into anger however has remained redirectable. Agrees to Zyprexa both scheduled and as p.r.n. for agitation while clozapine is titrating. Says he is taking in the past. 04/07 Mild improvement with Zyprexa 2.5 b.i.d. and clonazepam increase to t.i.d. , both scheduled.? Continue to titrate clozapine 04/08 continue with clozapine titration 04/09 keep same treatment, slight sedation during the morning. 04/10/22: continue current plan. PLAN: CV q15 min checks; Continue Clozapine 25mg Qam TITRATE Clozapine; increased to 150mg qhs (will titrate total daily dose to home dose of 300mg; ANC on 04/02 was 5.4 Added Zyprexa 2.5mg BID scheduled (will see if low-dose is sufficient) Added Ativan and zyprexa as PRN Increased to Clonazepam 0.5 mg T.i.d.; may need more as clozapine is titrated. Cnc Lathe Programmer Reviewed Labs from [place] [facility] where pt transfered from: CBC, Lytes, Bun/Cr, Ca, UA, UDS all WNL I spent minutes with the patient and/or on the patient floor today, greater than?50% of which was spent counseling/coordinating care. Patient educated on: therapeutic strategies Informed Consent: further education needed Reason for contiued inpatient stay Substantial Risk for: inability to function and rapid decompensation
[2022-04-10 20:20] VITALS: BP 147/94; PULSE 98; TEMP 36.6
[2022-04-10] MEDS: cloZAPine 25 MG TABLET 150 MG PO (22:29)
[2022-04-11 07:56] VITALS: BP 136/79; PULSE 85; RESP 16; TEMP 36.3; O2SAT 98
[2022-04-11] MEDS: cloZAPine 25 MG TABLET PO (08:53)
[2022-04-11] MEDS: OLANZapine 2.5 MG TABLET PO ×2 (08:53→21:30)
[2022-04-11] MEDS: clonazePAM 0.5 MG TABLET PO ×3 (08:53→21:30)
--- NOTE | 2022-04-11 10:50 | P.PNPSI_ITS ---
Subjective Subjective Date of Service: 04/11/22 Reason For Visit: Anxiety Interim History: Patient seen and discussed with nursing. Patient reports he is feeling well and is happy he could sleep after not sleeping for several nights in a row before admission. He was pleasant and social on approach. He continues to be vague/bewildered by events leading to admission. Denies SI, HI. Denies current fears or concerns. Reports medications are tolerated and helpful. Review of Systems Review of Systems Unremarkable Mental Status Exam Mental Status Exam Narrative: Pt is alert and oriented; behavior is not disorganized and while more calm overall. patient is not in distress; dressed in casual attire with scruffy facial hair but adequate hygiene; mood and affect are more stable; eye contact appropriate; Speech is odd rate, prosody, mild-moderately pressured, switching to different volumes; No PMA/PMR; thought process can be goal directed but is also disorganized; Thought content is on various things, but mostly focused on feeling unsure of what happened to him ;no delusional content or paranoid ideations expressed; denies any SI/HI. Denies AVH; Patients insight and judgment are improving. Patient Appearance: Well Grooomed Patient Orientation: Person, Place, Time and Situation Level of Consciousness: Alert Patient Behavior: Talkative and Good Eye Contact Mood Description: Apprehensive Affect Description: Flat Patient Cognition Impaired: No Ability to Follow Directions: Good Speech Pattern: Spontaneous Speech Memory Description: Episodic Impaired Diagnostics Vital Signs (24Hr): Vital Signs - 24 hr 04/10/22 20:20 04/11/22 07:56 04/11/22 19:39 Temperature 97.8 F 97.4 F Pulse Rate 98 85 106 H Respiratory Rate 16 Blood Pressure 147/94 H 136/79 148/78 H Pulse Oximetry 98 Oxygen Delivery Method Room Air Medications Medications Current Medications Acetaminophen (Acetaminophen 325 Mg Tablet) 650 mg PO Q6H PRN PRN Reason: Headache/Pain Mild Scale (1-3) Al Hydroxide/Mg Hydroxide (Magnesium Hydrox/Alum Hydrox 30 Ml Oral.Susp) 30 ml PO Q6H PRN PRN Reason: Heartburn/Nausea Clonazepam (Clonazepam 0.5 Mg Tablet) 0.5 mg PO TID [facility] Last Admin: 04/11/22 14:19 Dose: 0.5 mg Clozapine (Clozapine 25 Mg Tablet) 25 mg PO DAILY [facility] Last Admin: 04/11/22 08:53 Dose: 25 mg Clozapine (Clozapine 25 Mg Tablet) 150 mg PO BEDTIME [facility] Last Admin: 04/10/22 22:29 Dose: 150 mg Hydroxyzine HCl (Hydroxyzine Hcl 25 Mg Tablet) 25 mg PO Q6H PRN PRN Reason: Anxiety Magnesium Hydroxide (Milk Of Magnesia 30 Ml Oral.Susp) 30 ml PO DAILY PRN PRN Reason: Constipation Olanzapine (Olanzapine 2.5 Mg Tablet) 2.5 mg PO TID PRN PRN Reason: anxiety/agitation Last Admin: 04/06/22 14:11 Dose: 2.5 mg Olanzapine (Olanzapine 2.5 Mg Tablet) 2.5 mg PO BID [facility] Last Admin: 04/11/22 08:53 Dose: 2.5 mg Trazodone HCl (Trazodone Hcl 50 Mg Tablet) 50 mg PO BEDTIME PRN PRN Reason: Insomnia Allergies Allergies Allergy/AdvReac Type Severity Reaction Status Date / Time No Known Allergies Allergy Verified 04/02/22 14:28 Assessment & Plan Assessment & Plan (1) Schizoaffective disorder: Status: Acute Code(s): F25.9 - Schizoaffective disorder, unspecified (2) CLAYTON (generalized anxiety disorder): Status: Acute Code(s): F41.1 - Generalized anxiety disorder Plan Patient is a 56-year-old male with history of bipolar disorder (rule out schizoaffective) who presents for disorganized behavior, running down the street yelling and picked up by police, in the face of being off clozapine for several weeks -patient wants to get back on clozapine; life insurance underwriter restarted him in [place]; life insurance underwriter also reviewed risks/side effects of clozapine which patient mostly already knew. 04/04/2022: Will increase nighttime Clozaril to 50 mg, with AM clozapine 25mg 04/05/2022: Will increase nighttime Clozaril to 75 mg and continue a.m. Clozaril 25 mg 04/06/22 remains disorganized, manic, singing, dancing and easily triggered into anger however has remained redirectable. Agrees to Zyprexa both scheduled and as p.r.n. for agitation while clozapine is titrating. Says he is taking in the past. 04/07 Mild improvement with Zyprexa 2.5 b.i.d. and clonazepam increase to t.i.d. , both scheduled.? Continue to titrate clozapine 04/08 continue with clozapine titration 04/09 keep same treatment, slight sedation during the morning. 04/10/22: continue current plan. 04/11: Continue current treatment plan. ANC 3.4K on 04/09. PLAN: CV q15 min checks; Continue Clozapine 25mg Qam TITRATE Clozapine; increased to 150mg qhs (will titrate total daily dose to home dose of 300mg; ANC on 04/02 was 5.4 Added Zyprexa 2.5mg BID scheduled (will see if low-dose is sufficient) Added Ativan and zyprexa as PRN Increased to Clonazepam 0.5 mg T.i.d.; may need more as clozapine is titrated. Game Master Reviewed Labs from [place] [facility] where pt transfered from: CBC, Lytes, Bun/Cr, Ca, UA, UDS all WNL I spent minutes with the patient and/or on the patient floor today, greater than?50% of which was spent counseling/coordinating care. Reason for contiued inpatient stay Substantial Risk for: inability to function and rapid decompensation
[2022-04-11 19:39] VITALS: BP 148/78; PULSE 106
[2022-04-11] MEDS: cloZAPine 25 MG TABLET 150 MG PO (21:30)
[2022-04-12 07:51] VITALS: BP 142/83; PULSE 102; RESP 16; TEMP 36.3; O2SAT 96
[2022-04-12] MEDS: OLANZapine 2.5 MG TABLET PO ×2 (09:08→22:41)
[2022-04-12] MEDS: clonazePAM 0.5 MG TABLET PO ×3 (09:08→22:41)
[2022-04-12] MEDS: cloZAPine 25 MG TABLET PO (09:08)
--- NOTE | 2022-04-12 10:45 | P.PNPSI_ITS ---
Subjective Subjective Date of Service: 04/12/22 Reason For Visit: Anxiety Interim History: Patient seen and discussed with nursing. Patient complaining of a rash on his forearms and hands. Also on his abdomen. On examination, the rash on the forearms is dry and slightly reddened. He says it is itchy. He says it started prior to being in the hospital but has increased. He reports he gets dry skin in the winter. He has been using a hospital provided lotion. There's also a papular rash on the abdomen and torso. He can't specify exactly when that started. He doesn't relate it to the start of Clozaril or any of his other medications. Otherwise he reports he is feeling well He was pleasant and social on approach. Denies SI, HI. Denies current fears or concerns. Reports medications are tolerated and helpful. Review of Systems Review of Systems Unremarkable Mental Status Exam Mental Status Exam Narrative: Pt is alert and oriented; behavior is not disorganized and while more calm overall. patient is not in distress; dressed in casual attire with scruffy facial hair but adequate hygiene; mood and affect are more stable; eye contact appropriate; Speech is odd rate, prosody, mild-moderately pressured, switching to different volumes; No PMA/PMR; thought process can be goal directed but is a lso disorganized; Thought content is on various things, but mostly focused on feeling unsure of what happened to him ;no delusional content or paranoid ideations expressed; denies any SI/HI. Denies AVH; Patients insight and judgment are improving. Patient Appearance: Well Grooomed Patient Orientation: Person, Place, Time and Situation Level of Consciousness: Alert Patient Behavior: Talkative and Good Eye Contact Mood Description: Apprehensive Affect Description: Flat Patient Cognition Impaired: No Ability to Follow Directions: Good Speech Pattern: Spontaneous Speech Memory Description: Episodic Impaired Diagnostics Vital Signs (24Hr): Vital Signs - 24 hr 04/11/22 19:39 04/12/22 07:51 Temperature 97.3 F Pulse Rate 106 H 102 H Respiratory Rate 16 Blood Pressure 148/78 H 142/83 H Pulse Oximetry 96 Oxygen Delivery Method Room Air Labs Labs: Laboratory Results - last 48 hr 04/12/22 10:56 Absolute Neuts (auto) 4.2 Medications Medications Current Medications Acetaminophen (Acetaminophen 325 Mg Tablet) 650 mg PO Q6H PRN PRN Reason: Headache/Pain Mild Scale (1-3) Al Hydroxide/Mg Hydroxide (Magnesium Hydrox/Alum Hydrox 30 Ml Oral.Susp) 30 ml PO Q6H PRN PRN Reason: Heartburn/Nausea Clonazepam (Clonazepam 0.5 Mg Tablet) 0.5 mg PO TID [facility] Last Admin: 04/12/22 14:40 Dose: 0.5 mg Clozapine (Clozapine 25 Mg Tablet) 25 mg PO DAILY [facility] Last Admin: 04/12/22 09:08 Dose: 25 mg Clozapine (Clozapine 25 Mg Tablet) 150 mg PO BEDTIME [facility] Last Admin: 04/11/22 21:30 Dose: 150 mg Hydrocortisone (Hydrocortisone 1 % Cream 28.35 Gm Tube) 1 appl TOPICAL DAILY [facility]; Protocol Hydroxyzine HCl (Hydroxyzine Hcl 25 Mg Tablet) 25 mg PO Q6H PRN PRN Reason: Anxiety Magnesium Hydroxide (Milk Of Magnesia 30 Ml Oral.Susp) 30 ml PO DAILY PRN PRN Reason: Constipation Olanzapine (Olanzapine 2.5 Mg Tablet) 2.5 mg PO TID PRN PRN Reason: anxiety/agitation Last Admin: 04/06/22 14:11 Dose: 2.5 mg Olanzapine (Olanzapine 2.5 Mg Tablet) 2.5 mg PO BID [facility] Last Admin: 04/12/22 09:08 Dose: 2.5 mg Trazodone HCl (Trazodone Hcl 50 Mg Tablet) 50 mg PO BEDTIME PRN PRN Reason: Insomnia Allergies Allergies Allergy/AdvReac Type Severity Reaction Status Date / Time No Known Allergies Allergy Verified 04/02/22 14:28 Assessment & Plan Assessment & Plan (1) Schizoaffective disorder: Status: Acute Code(s): F25.9 - Schizoaffective disorder, unspecified (2) CLAYTON (generalized anxiety disorder): Status: Acute Code(s): F41.1 - Generalized anxiety disorder Plan Patient is a 56-year-old male with history of bipolar disorder (rule out schizoaffective) who presents for disorganized behavior, running down the street yelling and picked up by police, in the face of being off clozapine for several weeks -patient wants to get back on clozapine; teletypewriter installer restarted him in [place]; teletypewriter installer also reviewed risks/side effects of clozapine which patient mostly already knew. 04/04/2022: Will increase nighttime Clozaril to 50 mg, with AM clozapine 25mg 04/05/2022: Will increase nighttime Clozaril to 75 mg and continue a.m. Clozaril 25 mg 04/06/22 remains disorganized, manic, singing, dancing and easily triggered into anger however has remained redirectable. Agrees to Zyprexa both scheduled and as p.r.n. for agitation while clozapine is titrating. Says he is taking in the past. 04/07 Mild improvement with Zyprexa 2.5 b.i.d. and clonazepam increase to t.i.d. , both scheduled.? Continue to titrate clozapine 04/08 continue with clozapine titration 04/09 keep same treatment, slight sedation during the morning. 04/10/22: continue current plan. 04/11: Continue current treatment plan. ANC 3.4K on 04/09. 04/12: Eczematous rash on the forearms will use hydrocortisone. Monitor papular rash on the torso and abdomen. PLAN: CV q15 min checks; Continue Clozapine 25mg Qam TITRATE Clozapine; increased to 150mg qhs (will titrate total daily dose to home dose of 300mg; ANC on 04/02 was 5.4 Added Zyprexa 2.5mg BID scheduled (will see if low-dose is sufficient) Added Ativan and zyprexa as PRN Increased to Clonazepam 0.5 mg T.i.d.; may need more as clozapine is titrated. 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 Reason for contiued inpatient stay Substantial Risk for: inability to function and rapid decompensation
[2022-04-12 11:07] LABS: Neut%MD 70.4 %; Neutrophils Absolute Auto 4.2 x10*3/uL (2.0-8.3)
[2022-04-12 17:00] VITALS: BP 143/88; PULSE 101; TEMP 35.8
[2022-04-12] MEDS: cloZAPine 25 MG TABLET 150 MG PO (22:41)
[2022-04-13 06:00] VITALS: BP 138/86; PULSE 100; RESP 18; TEMP 36.1; O2SAT 98
--- NOTE | 2022-04-13 08:29 | P.PNPSI_ITS ---
Subjective Subjective Date of Service: 04/13/22 Reason For Visit: Anxiety Interim History: pt still has rash, but says it's lessening and that lotion is helping; he does not think it's due to medications. Automotive Design Layout Drafter examined rash on hands/chest and it appears to be dry, raised patches. Pt agrees to continued titration of clozapine; has not talked to his yet and thinks she wants to divorce him. Mental Status Exam Mental Status Exam Narrative: Pt is alert and oriented; behavior is a little more organized, however, still bizarre and manic, wearing his shirt tied up, intermittently hyperactive, dancing; however, less than before; intermittently agitated and yelling without trigger; patient is not in distress; dressed in odd attire; clean shaven with good hygiene; mood and affect are labile; eye contact appropriate; Speech is odd rate, prosody, mildly pressured; intermittent psychomotor agitation present; thought process can be goal directed but is also disorganized; Thought content is on various things, but mostly focused on wanting help;no delusional content or paranoid ideations expressed; denies any SI/HI. Denies AVH; Patients insight and judgment are impaired but improving. Diagnostics Vital Signs (24Hr): Vital Signs - 24 hr 04/12/22 17:00 Temperature 96.5 F L Pulse Rate 101 H Blood Pressure 143/88 H Labs Labs: Laboratory Results - last 48 hr 04/12/22 10:56 Absolute Neuts (auto) 4.2 Medications Medications Current Medications Acetaminophen (Acetaminophen 325 Mg Tablet) 650 mg PO Q6H PRN PRN Reason: Headache/Pain Mild Scale (1-3) Al Hydroxide/Mg Hydroxide (Magnesium Hydrox/Alum Hydrox 30 Ml Oral.Susp) 30 ml PO Q6H PRN PRN Reason: Heartburn/Nausea Clonazepam (Clonazepam 0.5 Mg Tablet) 0.5 mg PO TID [facility] Last Admin: 04/12/22 22:41 Dose: 0.5 mg Clozapine (Clozapine 25 Mg Tablet) 25 mg PO DAILY [facility] Last Admin: 04/12/22 09:08 Dose: 25 mg Clozapine (Clozapine 25 Mg Tablet) 150 mg PO BEDTIME [facility] Last Admin: 04/12/22 22:41 Dose: 150 mg Hydrocortisone (Hydrocortisone 1 % Cream 28.35 Gm Tube) 1 appl TOPICAL DAILY [facility]; Protocol Hydroxyzine HCl (Hydroxyzine Hcl 25 Mg Tablet) 25 mg PO Q6H PRN PRN Reason: Anxiety Magnesium Hydroxide (Milk Of Magnesia 30 Ml Oral.Susp) 30 ml PO DAILY PRN PRN Reason: Constipation Olanzapine (Olanzapine 2.5 Mg Tablet) 2.5 mg PO TID PRN PRN Reason: anxiety/agitation Last Admin: 04/06/22 14:11 Dose: 2.5 mg Olanzapine (Olanzapine 2.5 Mg Tablet) 2.5 mg PO BID [facility] Last Admin: 04/12/22 22:41 Dose: 2.5 mg Trazodone HCl (Trazodone Hcl 50 Mg Tablet) 50 mg PO BEDTIME PRN PRN Reason: Insomnia Allergies Allergies Allergy/AdvReac Type Severity Reaction Status Date / Time No Known Allergies Allergy Verified 04/02/22 14:28 Assessment & Plan Assessment & Plan (1) Schizoaffective disorder: Status: Acute Code(s): F25.9 - Schizoaffective disorder, unspecified (2) CLAYTON (generalized anxiety disorder): Status: Acute Code(s): F41.1 - Generalized anxiety disorder Plan Patient is a 56-year-old male with history of bipolar disorder (rule out schizoaffective) who presents for disorganized behavior, running down the street yelling and picked up by police, in the face of being off clozapine for several weeks -patient wants to get back on clozapine; freelance copywriter restarted him in [place]; freelance copywriter also reviewed risks/side effects of clozapine which patient mostly already knew. 04/04/2022: Will increase nighttime Clozaril to 50 mg, with AM clozapine 25mg 04/05/2022: Will increase nighttime Clozaril to 75 mg and continue a.m. Clozaril 25 mg 04/06/22 remains disorganized, manic, singing, dancing and easily triggered into anger however has remained redirectable. Agrees to Zyprexa both scheduled and as p.r.n. for agitation while clozapine is titrating. Says he is taking in the past. 04/07 Mild improvement with Zyprexa 2.5 b.i.d. and clonazepam increase to t.i.d. , both scheduled.? Continue to titrate clozapine 04/08 continue with clozapine titration 04/09 keep same treatment, slight sedation during the morning. 04/10/22: continue current plan. 04/11: Continue current treatment plan. ANC 3.4K on 04/09. 04/12: Eczematous rash on the forearms will use hydrocortisone. Monitor papular rash on the torso and abdomen. 04/13 rash seems to be resolving; pt feels it's better and not associated w/ meds; wants to continue. PLAN: CV q15 min checks; Continue Clozapine 25mg Qam Continue to titrate Clozapine to home dose (300mg) -increased to 200mg qhs Continue Zyprexa 2.5mg BID scheduled (will see if low-dose is sufficient) Added Ativan and zyprexa as PRN Continue Clonazepam 0.5 mg bid. Automotive Design Layout Drafter Reviewed Labs from [place] [facility] where pt transferred from: CBC, Lytes, Bun/Cr, Ca, UA, UDS all WNL I spent minutes with the patient and/or on the patient floor today, greater than?50% of which was spent counseling/coordinating care. Patient educated on: diagnosis and medication risk/benefits Informed Consent: understands Reason for contiued inpatient stay Substantial Risk for: rapid decompensation
[2022-04-13] MEDS: cloZAPine 25 MG TABLET PO (08:49)
[2022-04-13] MEDS: clonazePAM 0.5 MG TABLET PO ×2 (08:49→14:32)
[2022-04-13] MEDS: OLANZapine 2.5 MG TABLET PO ×2 (08:49→19:08)
[2022-04-13] MEDS: Hydrocortisone 1 % Cream 28.35 GM TUBE 1 APPL TOPICAL (08:50)
[2022-04-13 16:16] VITALS: BP 150/75; PULSE 107
[2022-04-13] MEDS: cloZAPine 25 MG TABLET 175 MG PO (19:08)
[2022-04-14 06:00] VITALS: BP 135/78; PULSE 104; RESP 18
[2022-04-14] MEDS: clonazePAM 0.5 MG TABLET PO ×2 (08:19→13:31)
[2022-04-14] MEDS: OLANZapine 2.5 MG TABLET PO ×2 (08:19→20:00)
[2022-04-14] MEDS: cloZAPine 25 MG TABLET PO (08:19)
[2022-04-14] MEDS: Hydrocortisone 1 % Cream 28.35 GM TUBE 1 APPL TOPICAL ×2 (08:46→15:18)
--- NOTE | 2022-04-14 12:51 | P.PNPSI_ITS ---
Subjective Subjective Date of Service: 04/14/22 Reason For Visit: Anxiety Interim History: Patient reports that he is feeling better. He says he feels close to being back to his regular self. Vb Developer asks about wearing tight up, braided clothing and patient says well he is just bored and it is fun to do. He says he would not do this if he was going to a job, knowing it would not be appropriate therapy. Patient says he last worked about a year ago and always dressed appropriately. Patient denies medication side effects other than being a little tired in the morning. He asks if clozapine can be made all at bedtime to which telegraphic typewriter installer agrees. Patient reports rash is getting much better and on focused exam, it does appear to be resolving. Patient reports overall sleeping well enough. He still has not talked to his and has some anxiety about whether she is angry at him and wants to remain in the marriage. However he did engage in some reality testing and agrees that perhaps he is misinterpreting some of her behaviors. Mental Status Exam Mental Status Exam Narrative: Pt is alert and oriented; behavior more organized, still some odd behaviors, dress; intermittently hyperactive; intermittently agitated and yelling without trigger but much less so and it quickly resolves; patient is not in distress; dressed in odd attire; clean shaven with good hygiene; mood is pretty good and affect are more calm, though still intermittently expansive; eye contact appropriate; Speech is normal rate and volume though with somewhat of an odd prosody; no longer seems pressured; intermittent psychomotor agitation present but less so and short lived; thought process is goal directed; Thought content is mostly focused on treatment, relationship with ; no delusional content or paranoid ideations expressed; denies any SI/HI. Denies AVH; Patients insight and judgment are impaired but improving and adequate. Diagnostics Vital Signs (24Hr): Vital Signs - 24 hr 04/13/22 16:16 04/14/22 06:00 Pulse Rate 107 H 104 H Respiratory Rate 18 Blood Pressure 150/75 H 135/78 Medications Medications Current Medications Acetaminophen (Acetaminophen 325 Mg Tablet) 650 mg PO Q6H PRN PRN Reason: Headache/Pain Mild Scale (1-3) Al Hydroxide/Mg Hydroxide (Magnesium Hydrox/Alum Hydrox 30 Ml Oral.Susp) 30 ml PO Q6H PRN PRN Reason: Heartburn/Nausea Clonazepam (Clonazepam 0.5 Mg Tablet) 0.5 mg PO BID@0900,1400 [facility] Last Admin: 04/14/22 08:19 Dose: 0.5 mg Clozapine (Clozapine 25 Mg Tablet) 25 mg PO DAILY [facility] Last Admin: 04/14/22 08:19 Dose: 25 mg Clozapine (Clozapine 100 Mg Tablet) 200 mg PO BEDTIME [facility] Hydrocortisone (Hydrocortisone 1 % Cream 28.35 Gm Tube) 1 appl TOPICAL DAILY [facility]; Protocol Last Admin: 04/14/22 08:46 Dose: 1 appl Hydroxyzine HCl (Hydroxyzine Hcl 25 Mg Tablet) 25 mg PO Q6H PRN PRN Reason: Anxiety Magnesium Hydroxide (Milk Of Magnesia 30 Ml Oral.Susp) 30 ml PO DAILY PRN PRN Reason: Constipation Olanzapine (Olanzapine 2.5 Mg Tablet) 2.5 mg PO TID PRN PRN Reason: anxiety/agitation Last Admin: 04/06/22 14:11 Dose: 2.5 mg Olanzapine (Olanzapine 2.5 Mg Tablet) 2.5 mg PO BID [facility] Last Admin: 04/14/22 08:19 Dose: 2.5 mg Trazodone HCl (Trazodone Hcl 50 Mg Tablet) 50 mg PO BEDTIME PRN PRN Reason: Insomnia Allergies Allergies Allergy/AdvReac Type Severity Reaction Status Date / Time No Known Allergies Allergy Verified 04/02/22 14:28 Assessment & Plan Assessment & Plan (1) Schizoaffective disorder: Status: Acute Code(s): F25.9 - Schizoaffective disorder, unspecified (2) CLAYTON (generalized anxiety disorder): Status: Acute Code(s): F41.1 - Generalized anxiety disorder Plan Patient is a 56-year-old male with history of bipolar disorder (rule out schizoaffective) who presents for disorganized behavior, running down the street yelling and picked up by police, in the face of being off clozapine for several weeks -patient wants to get back on clozapine; telegraphic typewriter installer restarted him in [place]; telegraphic typewriter installer also reviewed risks/side effects of clozapine which patient mostly already knew. 04/04/2022: Will increase nighttime Clozaril to 50 mg, with AM clozapine 25mg 04/05/2022: Will increase nighttime Clozaril to 75 mg and continue a.m. Clozaril 25 mg 04/06/22 remains disorganized, manic, singing, dancing and easily triggered into anger however has remained redirectable. Agrees to Zyprexa both scheduled and as p.r.n. for agitation while clozapine is titrating. Says he is taking in the past. 04/07 Mild improvement with Zyprexa 2.5 b.i.d. and clonazepam increase to t.i.d. , both scheduled.? Continue to titrate clozapine 04/08 continue with clozapine titration 04/09 keep same treatment, slight sedation during the morning. 04/10/22: continue current plan. 04/11: Continue current treatment plan. ANC 3.4K on 04/09. 04/12: Eczematous rash on the forearms will use hydrocortisone. Monitor papular rash on the torso and abdomen. 04/13 rash seems to be resolving; pt feels it's better and not associated w/ meds; wants to continue. 04/14 rash significantly improved and resolving Patient feels that he is getting close to his regular self; he still has some odd behaviors and has an odd speech pattern however it is possible this may be his baseline. Will need collateral to better assess. While patient was previously at clozapine 300 mg in the community, will hold off increasing dose further at this time given his report that he is close to baseline; will get levels and monitor to see if his behaviors continue to stabilize before increasing dose. -patient is also on Zyprexa 2.5 mg b.i.d. which is likely helping patient be more organized and taking a place of a higher dose of clozapine; as it is much better for patient to be on only 1 antipsychotic, will taper off Zyprexa and see if he remains stable. If so will leave clozapine at 225 mg; otherwise will increase back towards previous home dose. PLAN: CV q15 min checks; Seek Collateral from Continue clozapine to 25 q.h.s. (dose switched to bedtime to mitigate daytime sedating effect; patient was previously at 300 mg in the community however he says he is close to baseline so will leave here for now) Will LOWER Zyprexa to 2.5mg daily; this was added earlier to help bridge patient while clozapine titrating; will make moved to monotherapy Will taper to Clonazepam 0.5 mg daily (this medication was added to help bridge well clozapine titrating; preferable to DC before discharge) Clozapine level ordered Vb Developer Reviewed Labs from [place] [facility] where pt transferred from: CBC, Lytes, Bun/Cr, Ca, UA, UDS all WNL I spent minutes with the patient and/or on the patient floor today, greater than?50% of which was spent counseling/coordinating care. Patient educated on: diagnosis and medication risk/benefits Informed Consent: understands Reason for contiued inpatient stay Substantial Risk for: rapid decompensation
[2022-04-14 16:27] VITALS: BP 141/82; PULSE 95; TEMP 36.3
[2022-04-14] MEDS: cloZAPine 100 MG TABLET 200 MG PO (20:00)
--- NOTE | 2022-04-15 08:57 | HO.PSYCHPN ---
Subjective Subjective Date of Service: 04/15/22 Reason For Visit: Anxiety Interim History: pt got emotional when told had to wait for shave, however, did not get dysregulated as has in recent past; he shared how his first reaction is to feel marginalized by staff, however he was able to challenge this thought and accept. Agrees to tapering zyprexa, clonazepam Mental Status Exam Mental Status Exam Narrative: Pt is alert and oriented; behavior more organized, still some odd behaviors, dress; intermittently hyperactive; intermittently agitated but more able to regulate self and it quickly resolves; patient is not in distress; dressed in odd attire; clean shaven with good hygiene; mood is pretty good and affect are more calm, though still intermittently expansive; eye contact appropriate; Speech is normal rate and volume though with somewhat of an odd prosody; no longer seems pressured; intermittent psychomotor agitation present but less so and short lived; thought process is goal directed; Thought content is mostly focused on treatment, relationship with ; no delusional content or paranoid ideations expressed; denies any SI/HI. Denies AVH; Patients insight and judgment are impaired but improving and adequate. Diagnostics Vital Signs (24Hr): Vital Signs - 24 hr 04/14/22 16:27 Temperature 97.4 F Pulse Rate 95 Blood Pressure 141/82 H Medications Medications Current Medications Acetaminophen (Acetaminophen 325 Mg Tablet) 650 mg PO Q6H PRN PRN Reason: Headache/Pain Mild Scale (1-3) Al Hydroxide/Mg Hydroxide (Magnesium Hydrox/Alum Hydrox 30 Ml Oral.Susp) 30 ml PO Q6H PRN PRN Reason: Heartburn/Nausea Clonazepam (Clonazepam 0.5 Mg Tablet) 0.5 mg PO BID@0900,1400 GENNA Last Admin: 04/14/22 13:31 Dose: 0.5 mg Clozapine (Clozapine 100 Mg Tablet) 200 mg PO BEDTIME GENNA Clozapine (Clozapine 25 Mg Tablet) 25 mg PO BEDTIME GENNA Hydrocortisone (Hydrocortisone 1 % Cream 28.35 Gm Tube) 1 appl TOPICAL DAILY GENNA; Protocol Last Admin: 04/14/22 15:18 Dose: 1 appl Hydroxyzine HCl (Hydroxyzine Hcl 25 Mg Tablet) 25 mg PO Q6H PRN PRN Reason: Anxiety Magnesium Hydroxide (Milk Of Magnesia 30 Ml Oral.Susp) 30 ml PO DAILY PRN PRN Reason: Constipation Olanzapine (Olanzapine 2.5 Mg Tablet) 2.5 mg PO TID PRN PRN Reason: anxiety/agitation Last Admin: 04/06/22 14:11 Dose: 2.5 mg Olanzapine (Olanzapine 2.5 Mg Tablet) 2.5 mg PO BID GENNA Last Admin: 04/14/22 20:00 Dose: 2.5 mg Trazodone HCl (Trazodone Hcl 50 Mg Tablet) 50 mg PO BEDTIME PRN PRN Reason: Insomnia Allergies Allergies Allergy/AdvReac Type Severity Reaction Status Date / Time No Known Allergies Allergy Verified 04/02/22 14:28 Assessment & Plan Assessment & Plan (1) Schizoaffective disorder: Status: Acute Code(s): F25.9 - Schizoaffective disorder, unspecified (2) CLAYTON (generalized anxiety disorder): Status: Acute Code(s): F41.1 - Generalized anxiety disorder Plan Patient is a 56-year-old male with history of bipolar disorder (rule out schizoaffective) who presents for disorganized behavior, running down the street yelling and picked up by police, in the face of being off clozapine for several weeks -patient wants to get back on clozapine; health technical writer restarted him in [employer]; health technical writer also reviewed risks/side effects of clozapine which patient mostly already knew. 04/04/2022: Will increase nighttime Clozaril to 50 mg, with AM clozapine 25mg 04/05/2022: Will increase nighttime Clozaril to 75 mg and continue a.m. Clozaril 25 mg 04/06/22 remains disorganized, manic, singing, dancing and easily triggered into anger however has remained redirectable. Agrees to Zyprexa both scheduled and as p.r.n. for agitation while clozapine is titrating. Says he is taking in the past. 04/07 Mild improvement with Zyprexa 2.5 b.i.d. and clonazepam increase to t.i.d. , both scheduled.? Continue to titrate clozapine 04/08 continue with clozapine titration 04/09 keep same treatment, slight sedation during the morning. 04/10/22: continue current plan. 04/11: Continue current treatment plan. ANC 3.4K on 04/09. 04/12: Eczematous rash on the forearms will use hydrocortisone. Monitor papular rash on the torso and abdomen. 04/13 rash seems to be resolving; pt feels it's better and not associated w/ meds; wants to continue. 04/14 rash significantly improved and resolving Patient feels that he is getting close to his regular self; he still has some odd behaviors and has an odd speech pattern however it is possible this may be his baseline. Will need collateral to better assess. While patient was previously at clozapine 300 mg in the community, will hold off increasing dose further at this time given his report that he is close to baseline; will get levels and monitor to see if his behaviors continue to stabilize before increasing dose. -patient is also on Zyprexa 2.5 mg b.i.d. which is likely helping patient be more organized and taking a place of a higher dose of clozapine; as it is much better for patient to be on only 1 antipsychotic, will taper off Zyprexa and see if he remains stable. If so will leave clozapine at 225 mg; otherwise will increase back towards previous home dose. PLAN: CV q15 min checks; Seek Collateral from Continue clozapine to 25 q.h.s. (dose switched to bedtime to mitigate daytime sedating effect; patient was previously at 300 mg in the community however he says he is close to baseline so will leave here for now) Will LOWER Zyprexa to 2.5mg daily; this was added earlier to help bridge patient while clozapine titrating; will make moved to monotherapy Will taper to Clonazepam 0.5 mg daily (this medication was added to help bridge well clozapine titrating; preferable to DC before discharge) Clozapine level ordered Machine Fastener Reviewed Labs from [place] [facility] where pt transferred from: CBC, Lytes, Bun/Cr, Ca, UA, UDS all WNL I spent minutes with the patient and/or on the patient floor today, greater than?50% of which was spent counseling/coordinating care. Patient educated on: diagnosis and therapeutic strategies Informed Consent: understands Reason for contiued inpatient stay Substantial Risk for: rapid decompensation
[2022-04-15 09:00] VITALS: BP 136/94; PULSE 101; RESP 18; TEMP 36.2; O2SAT 98
[2022-04-15] MEDS: OLANZapine 2.5 MG TABLET PO (10:15)
[2022-04-15] MEDS: clonazePAM 0.5 MG TABLET PO (10:15)
[2022-04-15] MEDS: Hydrocortisone 1 % Cream 28.35 GM TUBE 1 APPL TOPICAL ×2 (10:16→18:43)
[2022-04-15 17:30] VITALS: BP 143/80; PULSE 99; RESP 16; TEMP 36.9; O2SAT 98
[2022-04-15] MEDS: cloZAPine 100 MG TABLET 200 MG PO (21:40)
[2022-04-15] MEDS: cloZAPine 25 MG TABLET PO (21:40)
[2022-04-16 06:00] VITALS: BP 120/72; PULSE 99; RESP 16; TEMP 36.9; O2SAT 96
[2022-04-16] MEDS: clonazePAM 0.5 MG TABLET PO (08:56)
[2022-04-16] MEDS: OLANZapine 2.5 MG TABLET PO (08:56)
[2022-04-16] MEDS: Hydrocortisone 1 % Cream 28.35 GM TUBE 1 APPL TOPICAL (08:57)
--- NOTE | 2022-04-16 10:19 | P.PNPSI_ITS ---
Subjective Subjective Date of Service: 04/16/22 Reason For Visit: Anxiety Interim History: Patient reports that is overall doing better. Has not spoken to his yet but was very encouraged to learn that she misses him and love him and hopes he calls soon. Collateral from his and from bridge therapist corroborates the patient sounds to be closer at his baseline (which includes some odd behaviors including dancing around). Patient agrees to continue to keep her off the zyprexa and benzo to see if he remains stable on current Clozapine dose Mental Status Exam Mental Status Exam Narrative: Pt is alert and oriented; behavior is organized, still some odd behaviors such as dancing, pirouetting (which is baseline); no longer intermittently agitated; patient is not in distress; dressed in odd attire; clean shaven with good hygiene; mood is pretty good and affect calm, brighter, sometimes more expressive but WNL; eye contact appropriate; Speech is normal rate and volume though with somewhat of an odd prosody also baseline; no longer pressured;no intermittent psychomotor agitation; thought process is goal directed, linear; Thought content is mostly focused on treatment, relationship with ; no delusional content or paranoid ideations expressed; denies any SI/HI. Denies AVH; Patients insight and judgment are adequate. Diagnostics Vital Signs (24Hr): Vital Signs - 24 hr 04/15/22 17:30 Temperature 98.4 F Pulse Rate 99 Respiratory Rate 16 Blood Pressure 143/80 H Pulse Oximetry 98 Oxygen Delivery Method Room Air Medications Medications Current Medications Acetaminophen (Acetaminophen 325 Mg Tablet) 650 mg PO Q6H PRN PRN Reason: Headache/Pain Mild Scale (1-3) Al Hydroxide/Mg Hydroxide (Magnesium Hydrox/Alum Hydrox 30 Ml Oral.Susp) 30 ml PO Q6H PRN PRN Reason: Heartburn/Nausea Clonazepam (Clonazepam 0.5 Mg Tablet) 0.5 mg PO DAILY EGNNA Stop: 04/17/22 23:50 Last Admin: 04/16/22 08:56 Dose: 0.5 mg Clozapine (Clozapine 100 Mg Tablet) 200 mg PO BEDTIME GENNA Last Admin: 04/15/22 21:40 Dose: 200 mg Clozapine (Clozapine 25 Mg Tablet) 25 mg PO BEDTIME GENNA Last Admin: 04/15/22 21:40 Dose: 25 mg Hydrocortisone (Hydrocortisone 1 % Cream 28.35 Gm Tube) 1 appl TOPICAL DAILY GENNA; Protocol Last Admin: 04/16/22 08:57 Dose: 1 appl Hydroxyzine HCl (Hydroxyzine Hcl 25 Mg Tablet) 25 mg PO Q6H PRN PRN Reason: Anxiety Magnesium Hydroxide (Milk Of Magnesia 30 Ml Oral.Susp) 30 ml PO DAILY PRN PRN Reason: Constipation Olanzapine (Olanzapine 2.5 Mg Tablet) 2.5 mg PO TID PRN PRN Reason: anxiety/agitation Last Admin: 04/06/22 14:11 Dose: 2.5 mg Trazodone HCl (Trazodone Hcl 50 Mg Tablet) 50 mg PO BEDTIME PRN PRN Reason: Insomnia Allergies Allergies Allergy/AdvReac Type Severity Reaction Status Date / Time No Known Allergies Allergy Verified 04/02/22 14:28 Assessment & Plan Assessment & Plan (1) Schizoaffective disorder: Status: Acute Code(s): F25.9 - Schizoaffective disorder, unspecified (2) CLAYTON (generalized anxiety disorder): Status: Acute Code(s): F41.1 - Generalized anxiety disorder Plan Patient is a 56-year-old male with history of bipolar disorder (rule out sc hizoaffective) who presents for disorganized behavior, running down the street yelling and picked up by police, in the face of being off clozapine for several weeks -patient wants to get back on clozapine; journalists and other writers restarted him in [employer]; journalists and other writers also reviewed risks/side effects of clozapine which patient mostly already knew. 04/04/2022: Will increase nighttime Clozaril to 50 mg, with AM clozapine 25mg 04/05/2022: Will increase nighttime Clozaril to 75 mg and continue a.m. Clozaril 25 mg 04/06/22 remains disorganized, manic, singing, dancing and easily triggered into anger however has remained redirectable. Agrees to Zyprexa both scheduled and as p.r.n. for agitation while clozapine is titrating. Says he is taking in the past. 04/07 Mild improvement with Zyprexa 2.5 b.i.d. and clonazepam increase to t.i.d. , both scheduled.? Continue to titrate clozapine 04/08 continue with clozapine titration 04/09 keep same treatment, slight sedation during the morning. 04/10/22: continue current plan. 04/11: Continue current treatment plan. ANC 3.4K on 04/09. 04/12: Eczematous rash on the forearms will use hydrocortisone. Monitor papular rash on the torso and abdomen. 04/13 rash seems to be resolving; pt feels it's better and not associated w/ meds; wants to continue. 04/14 rash significantly improved and resolving Patient feels that he is getting close to his regular self; he still has some odd behaviors and has an odd speech pattern however it is possible this may be his baseline. Will need collateral to better assess. While patient was previously at clozapine 300 mg in the community, will hold off increasing dose further at this time given his report that he is close to baseline; will get levels and monitor to see if his behaviors continue to stabilize before increasing dose. -patient is also on Zyprexa 2.5 mg b.i.d. which is likely helping patient be more organized and taking a place of a higher dose of clozapine; as it is much better for patient to be on only 1 antipsychotic, will taper off Zyprexa and see if he remains stable. If so will leave clozapine at 225 mg; otherwise will increase back towards previous home dose. 04/16 pt is close to baseline which includes some odd behaviors such as dancing around; sleeping well through the night. However, this is while he's been on both Zyprexa and Clonazepam; will dc both and monitor for continued stability since he is on lower than home dose of Clozapine. -rash resolved PLAN: CV q15 min checks; Continue clozapine to 25 q.h.s. (dose switched to bedtime to mitigate daytime sedating effect; patient was previously at 300 mg in the community however he says he is close to baseline so will leave here for now) DC Zyprexa: see if stable without DC Clonazepam: see if stable w/out Clozapine level ordered Veterinary Poultry Inspector Reviewed Labs from [place] [facility] where pt transferred from: CBC, Lytes, Bun/Cr, Ca, UA, UDS all WNL collateral from /therapist indicate that patient is at or close to baseline I spent minutes with the patient and/or on the patient floor today, greater than?50% of which was spent counseling/coordinating care. Patient educated on: diagnosis and medication risk/benefits Informed Consent: understands Reason for contiued inpatient stay Substantial Risk for: rapid decompensation
[2022-04-16 18:47] VITALS: BP 139/86; PULSE 100; RESP 16; TEMP 36.8; O2SAT 98
[2022-04-16] MEDS: cloZAPine 25 MG TABLET PO (19:42)
[2022-04-16] MEDS: cloZAPine 100 MG TABLET 200 MG PO (19:42)
[2022-04-17 08:17] LABS: Neut%MD 64.7 %; Neutrophils Absolute Auto 4.8 x10*3/uL (2.0-8.3); WBCANC 7.4 X10*3/uL
[2022-04-17 08:35] VITALS: BP 120/68; PULSE 106; RESP 16; TEMP 36.3; O2SAT 97
[2022-04-17] MEDS: clonazePAM 0.5 MG TABLET PO (08:37)
[2022-04-17] MEDS: Hydrocortisone 1 % Cream 28.35 GM TUBE 1 APPL TOPICAL (09:18)
[2022-04-17 18:00] VITALS: BP 142/76; PULSE 95; RESP 18; TEMP 36.9; O2SAT 98
--- NOTE | 2022-04-17 18:01 | HO.PSYCHPN ---
Subjective Subjective Date of Service: 04/17/22 Reason For Visit: Anxiety Interim History: Pt talked to ; bitter sweet timing as he was able to get ahold of her but was exactly at time EMS at house taking her to hospital; he's not sure why, says she had stroke recently pt wants to call hospital but not sure what to say; anxious about how to present himself on the phone; discussed options with telegraphic typewriter installer. pt shares about being anxious much of the time, sometimes very worried about what others think, even to feeling momentarily paralyzed; is open to discussing more Mental Status Exam Mental Status Exam Narrative: Pt is alert and oriented; behavior is organized, still some odd behaviors such as dancing, pirouetting (which is baseline); no longer intermittently agitated; patient is not in distress; dressed in odd attire; clean shaven with good hygiene; mood is pretty good and affect calm, brighter, sometimes more expressive but WNL; eye contact appropriate; Speech is normal rate and volume though with somewhat of an odd prosody also baseline; no longer pressured;no intermittent psychomotor agitation; thought process is goal directed, linear; Thought content is mostly focused on treatment, relationship with ; no delusional content or paranoid ideations expressed; denies any SI/HI. Denies AVH; Patients insight and judgment are adequate. Diagnostics Vital Signs (24Hr): Vital Signs - 24 hr 04/16/22 18:47 04/17/22 08:35 Temperature 98.3 F 97.4 F Pulse Rate 100 106 H Respiratory Rate 16 16 Blood Pressure 139/86 120/68 Pulse Oximetry 98 97 Oxygen Delivery Method Room Air Room Air Labs Labs: Laboratory Results - last 48 hr 04/17/22 07:54 Absolute Neuts (auto) 4.8 Medications Medications Current Medications Acetaminophen (Acetaminophen 325 Mg Tablet) 650 mg PO Q6H PRN PRN Reason: Headache/Pain Mild Scale (1-3) Al Hydroxide/Mg Hydroxide (Magnesium Hydrox/Alum Hydrox 30 Ml Oral.Susp) 30 ml PO Q6H PRN PRN Reason: Heartburn/Nausea Clozapine (Clozapine 100 Mg Tablet) 200 mg PO BEDTIME GENNA Last Admin: 04/16/22 19:42 Dose: 200 mg Clozapine (Clozapine 25 Mg Tablet) 25 mg PO BEDTIME GENNA Last Admin: 04/16/22 19:42 Dose: 25 mg Hydrocortisone (Hydrocortisone 1 % Cream 28.35 Gm Tube) 1 appl TOPICAL DAILY GENNA; Protocol Last Admin: 04/17/22 09:18 Dose: 1 appl Hydroxyzine HCl (Hydroxyzine Hcl 25 Mg Tablet) 25 mg PO Q6H PRN PRN Reason: Anxiety Magnesium Hydroxide (Milk Of Magnesia 30 Ml Oral.Susp) 30 ml PO DAILY PRN PRN Reason: Constipation Olanzapine (Olanzapine 2.5 Mg Tablet) 2.5 mg PO TID PRN PRN Reason: anxiety/agitation Last Admin: 04/06/22 14:11 Dose: 2.5 mg Trazodone HCl (Trazodone Hcl 50 Mg Tablet) 50 mg PO BEDTIME PRN PRN Reason: Insomnia Allergies Allergies Allergy/AdvReac Type Severity Reaction Status Date / Time No Known Allergies Allergy Verified 04/02/22 14:28 Assessment & Plan Assessment & Plan (1) Schizoaffective disorder: Status: Acute Code(s): F25.9 - Schizoaffective disorder, unspecified (2) CLAYTON (generalized anxiety disorder): Status: Acute Code(s): F41.1 - Generalized anxiety disorder Plan Patient is a 56-year-old male with history of bipolar disorder (rule out schizoaffective) who presents for disorganized behavior, running down the street yelling and picked up by police, in the face of being off clozapine for several weeks -patient wants to get back on clozapine; telegraphic typewriter installer restarted him in [employer]; telegraphic typewriter installer also reviewed risks/side effects of clozapine which patient mostly already knew. 04/04/2022: Will increase nighttime Clozaril to 50 mg, with AM clozapine 25mg 04/05/2022: Will increase nighttime Clozaril to 75 mg and continue a.m. Clozaril 25 mg 04/06/22 remains disorganized, manic, singing, dancing and easily triggered into anger however has remained redirectable. Agrees to Zyprexa both scheduled and as p.r.n. for agitation while clozapine is titrating. Says he is taking in the past. 04/07 Mild improvement with Zyprexa 2.5 b.i.d. and clonazepam increase to t.i.d. , both scheduled.? Continue to titrate clozapine 04/08 continue with clozapine titration 04/09 keep same treatment, slight sedation during the morning. 04/10/22: continue current plan. 04/11: Continue current treatment plan. ANC 3.4K on 04/09. 04/12: Eczematous rash on the forearms will use hydrocortisone. Monitor papular rash on the torso and abdomen. 04/13 rash seems to be resolving; pt feels it's better and not associated w/ meds; wants to continue. 04/14 rash significantly improved and resolving Patient feels that he is getting close to his regular self; he still has some odd behaviors and has an odd speech pattern however it is possible this may be his baseline. Will need collateral to better assess. While patient was previously at clozapine 300 mg in the community, will hold off increasing dose further at this time given his report that he is close to baseline; will get levels and monitor to see if his behaviors continue to stabilize before increasing dose. -patient is also on Zyprexa 2.5 mg b.i.d. which is likely helping patient be more organized and taking a place of a higher dose of clozapine; as it is much better for patient to be on only 1 antipsychotic, will taper off Zyprexa and see if he remains stable. If so will leave clozapine at 225 mg; otherwise will increase back towards previous home dose. 04/16 pt is close to baseline which includes some odd behaviors such as dancing around; sleeping well through the night. However, this is while he's been on both Zyprexa and Clonazepam; will dc both and monitor for continued stability since he is on lower than home dose of Clozapine. ? -rash resolved 04/17 remains stable; anxious about ; shares some of his chronic excessive anxiety which can be debilitating; after continued demonstration of mood stability, will consider treatment options for this anxiety PLAN: CV q15 min checks; Continue clozapine to 225 q.h.s. (patient previously at 300 mg in the community; will monitor) DC Zyprexa: see if stable without DC Clonazepam: see if stable w/out Clozapine level ordered Fur Nailer Reviewed Labs from [place] [facility] where pt transferred from: CBC, Lytes, Bun/Cr, Ca, UA, UDS all WNL collateral from /therapist indicate that patient is at or close to baseline I spent minutes with the patient and/or on the patient floor today, greater than?50% of which was spent counseling/coordinating care. Patient educated on: diagnosis and therapeutic strategies Informed Consent: understands Reason for contiued inpatient stay Substantial Risk for: rapid decompensation
[2022-04-17] MEDS: cloZAPine 25 MG TABLET PO (20:51)
[2022-04-17] MEDS: cloZAPine 100 MG TABLET 200 MG PO (20:51)
--- NOTE | 2022-04-18 07:30 | HO.PSYCHPN ---
Documented by User: Isis Gutierrez MD 04/19/22 08:11 Subjective Subjective Date of Service: 04/18/22 Reason For Visit: Anxiety Subjective Notes: Conditional Voluntary Healthcare Proxy: No Guardianship: No Medical Problems Affecting Mental Status: No Interim History: Patient pending dc but need VNA to help him manage medications on dc so there maybe delay - pt seomwhat loose and talkgative, spining, elaated disorganized racing, but sleeping- Medication Compliance: Yes Side effects from medications: No Attending Groups: Intermittent (not always appropriate in groups - off topic frequently) Review of Systems Acute medical concerns: No Medical Review of Systems: unchanged Mental Status Exam Mental Status Exam Narrative: Pt is alert and oriented; behavior is organized, still some odd behaviors such as dancing, pirouetting (which is baseline); no longer intermittently agitated; patient is not in distress; dressed in odd attire; clean shaven with good hygiene; mood is pretty good and affect calm, brighter, sometimes more expressive but WNL; eye contact appropriate; Speech is normal rate and volume though with somewhat of an odd prosody also baseline; no longer pressured;no intermittent psychomotor agitation; thought process is goal directed, linear; Thought content is mostly focused on treatment, relationship with ; no delusional content or paranoid ideations expressed; denies any SI/HI. Denies AVH; Patients insight and judgment are adequate. Diagnostics Vital Signs (24Hr): Vital Signs - 24 hr 04/17/22 08:35 04/17/22 18:00 Temperature 97.4 F 98.4 F Pulse Rate 106 H 95 Respiratory Rate 16 18 Blood Pressure 120/68 142/76 H Pulse Oximetry 97 98 Oxygen Delivery Method Room Air Room Air Labs Labs: Laboratory Results - last 48 hr 04/17/22 07:54 Absolute Neuts (auto) 4.8 Medications Medications Current Medications Acetaminophen (Acetaminophen 325 Mg Tablet) 650 mg PO Q6H PRN PRN Reason: Headache/Pain Mild Scale (1-3) Al Hydroxide/Mg Hydroxide (Magnesium Hydrox/Alum Hydrox 30 Ml Oral.Susp) 30 ml PO Q6H PRN PRN Reason: Heartburn/Nausea Clozapine (Clozapine 100 Mg Tablet) 200 mg PO BEDTIME [facility] Last Admin: 04/17/22 20:51 Dose: 200 mg Clozapine (Clozapine 25 Mg Tablet) 25 mg PO BEDTIME [facility] Last Admin: 04/17/22 20:51 Dose: 25 mg Hydrocortisone (Hydrocortisone 1 % Cream 28.35 Gm Tube) 1 appl TOPICAL DAILY [facility]; Protocol Last Admin: 04/17/22 09:18 Dose: 1 appl Hydroxyzine HCl (Hydroxyzine Hcl 25 Mg Tablet) 25 mg PO Q6H PRN PRN Reason: Anxiety Magnesium Hydroxide (Milk Of Magnesia 30 Ml Oral.Susp) 30 ml PO DAILY PRN PRN Reason: Constipation Olanzapine (Olanzapine 2.5 Mg Tablet) 2.5 mg PO TID PRN PRN Reason: anxiety/agitation Last Admin: 04/06/22 14:11 Dose: 2.5 mg Trazodone HCl (Trazodone Hcl 50 Mg Tablet) 50 mg PO BEDTIME PRN PRN Reason: Insomnia Allergies Allergies Allergy/AdvReac Type Severity Reaction Status Date / Time No Known Allergies Allergy Verified 04/02/22 14:28 Assessment & Plan Assessment & Plan (1) Schizoaffective disorder: Status: Acute Code(s): F25.9 - Schizoaffective disorder, unspecified Assessment and Plan: stabilizing still some odd behaviors but not harmful (2) CLAYTON (generalized anxiety disorder): Status: Acute Code(s): F41.1 - Generalized anxiety disorder Plan Patient is a 56-year-old male with history of bipolar disorder (rule out schizoaffective) who presents for disorganized behavior, running down the street yelling and picked up by police, in the face of being off clozapine for several weeks -patient wants to get back on clozapine; automobile and property underwriter restarted him in [place]; automobile and property underwriter also reviewed risks/side effects of clozapine which patient mostly already knew. 04/04/2022: Will increase nighttime Clozaril to 50 mg, with AM clozapine 25mg 04/05/2022: Will increase nighttime Clozaril to 75 mg and continue a.m. Clozaril 25 mg 04/06/22 remains disorganized, manic, singing, dancing and easily triggered into anger however has remained redirectable. Agrees to Zyprexa both scheduled and as p.r.n. for agitation while clozapine is titrating. Says he is taking in the past. 04/07 Mild improvement with Zyprexa 2.5 b.i.d. and clonazepam increase to t.i.d. , both scheduled.? Continue to titrate clozapine 04/08 continue with clozapine titration 04/09 keep same treatment, slight sedation during the morning. 04/10/22: continue current plan. 04/11: Continue current treatment plan. ANC 3.4K on 04/09. 04/12: Eczematous rash on the forearms will use hydrocortisone. Monitor papular rash on the torso and abdomen. 04/13 rash seems to be resolving; pt feels it's better and not associated w/ meds; wants to continue. 04/14 rash significantly improved and resolving Patient feels that he is getting close to his regular self; he still has some odd behaviors and has an odd speech pattern however it is possible this may be his baseline. Will need collateral to better assess. While patient was previously at clozapine 300 mg in the community, will hold off increasing dose further at this time given his report that he is close to baseline; will get levels and monitor to see if his behaviors continue to stabilize before increasing dose. -patient is also on Zyprexa 2.5 mg b.i.d. which is likely helping patient be more organized and taking a place of a higher dose of clozapine; as it is much better for patient to be on only 1 antipsychotic, will taper off Zyprexa and see if he remains stable. If so will leave clozapine at 225 mg; otherwise will increase back towards previous home dose. PLAN: CV q15 min checks; Seek Collateral from Continue clozapine to 25 q.h.s. (dose switched to bedtime to mitigate daytime sedating effect; patient was previously at 300 mg in the community however he says he is close to baseline so will leave here for now) Will LOWER Zyprexa to 2.5mg daily; this was added earlier to help bridge patient while clozapine titrating; will make moved to monotherapy Will taper to Clonazepam 0.5 mg daily (this medication was added to help bridge well clozapine titrating; preferable to DC before discharge) Clozapine level ordered Electrical Solderer Reviewed Labs from [place] [facility] where pt transferred from: CBC, Lytes, Bun/Cr, Ca, UA, UDS all WNL I spent minutes with the patient and/or on the patient floor today, greater than?50% of which was spent counseling/coordinating care. Patient educated on: other (dc planning) Informed Consent: understands Reason for contiued inpatient stay Substantial Risk for: rapid decompensation Documented by User: James Ashby MD 04/20/22 10:39 Subjective Subjective Reason For Visit: Anxiety Assessment & Plan Assessment & Plan (1) Schizoaffective disorder: Status: Acute Code(s): F25.9 - Schizoaffective disorder, unspecified (2) CLAYTON (generalized anxiety disorder): Status: Acute Code(s): F41.1 - Generalized anxiety disorder Plan Patient is a 56-year-old male with history of bipolar disorder (rule out schizoaffective) who presents for disorganized behavior, running down the street yelling and picked up by police, in the face of being off clozapine for several weeks -patient wants to get back on clozapine; automobile and property underwriter restarted him in [place]; automobile and property underwriter also reviewed risks/side effects of clozapine which patient mostly already knew. 04/04/2022: Will increase nighttime Clozaril to 50 mg, with AM clozapine 25mg 04/05/2022: Will increase nighttime Clozaril to 75 mg and continue a.m. Clozaril 25 mg 04/06/22 remains disorganized, manic, singing, dancing and easily triggered into anger however has remained redirectable. Agrees to Zyprexa both scheduled and as p.r.n. for agitation while clozapine is titrating. Says he is taking in the past. 04/07 Mild improvement with Zyprexa 2.5 b.i.d. and clonazepam increase to t.i.d. , both scheduled.? Continue to titrate clozapine 04/08 continue with clozapine titration 04/09 keep same treatment, slight sedation during the morning. 04/10/22: continue current plan. 04/11: Continue current treatment plan. ANC 3.4K on 04/09. 04/12: Eczematous rash on the forearms will use hydrocortisone. Monitor papular rash on the torso and abdomen. 04/13 rash seems to be resolving; pt feels it's better and not associated w/ meds; wants to continue. 04/14 rash significantly improved and resolving Patient feels that he is getting close to his regular self; he still has some odd behaviors and has an odd speech pattern however it is possible this may be his baseline. Will need collateral to better assess. While patient was previously at clozapine 300 mg in the community, will hold off increasing dose further at this time given his report that he is close to baseline; will get levels and monitor to see if his behaviors continue to stabilize before increasing dose. -patient is also on Zyprexa 2.5 mg b.i.d. which is likely helping patient be more organized and taking a place of a higher dose of clozapine; as it is much better for patient to be on only 1 antipsychotic, will taper off Zyprexa and see if he remains stable. If so will leave clozapine at 225 mg; otherwise will increase back towards previous home dose. 04/16 pt is close to baseline which includes some odd behaviors such as dancing around; sleeping well through the night. However, this is while he's been on both Zyprexa and Clonazepam; will dc both and monitor for continued stability since he is on lower than home dose of Clozapine. ? -rash resolved 04/17 remains stable; anxious about ; shares some of his chronic excessive anxiety which can be debilitating; after continued demonstration of mood stability, will consider treatment options for this anxiety? PLAN: CV q15 min checks; Continue clozapine to 225 q.h.s. (patient previously at 300 mg in the community; will monitor) DC Zyprexa: see if stable without DC Clonazepam: see if stable w/out Clozapine level ordered Electrical Solderer Reviewed Labs from [place] [facility] where pt transferred from: CBC, Lytes, Bun/Cr, Ca, UA, UDS all WNL collateral from /therapist indicate that patient is at or close to baseline
[2022-04-18 08:45] VITALS: BP 120/74; PULSE 101; RESP 18; TEMP 36.1; O2SAT 97
[2022-04-18 18:00] VITALS: BP 136/80; PULSE 99; RESP 18; TEMP 36.3; O2SAT 98
[2022-04-18] MEDS: cloZAPine 100 MG TABLET 200 MG PO (20:53)
[2022-04-18] MEDS: cloZAPine 25 MG TABLET PO (20:53)
[2022-04-19 06:00] VITALS: BP 124/85; PULSE 99; RESP 16; TEMP 36.5; O2SAT 97
[2022-04-19] MEDS: Hydrocortisone 1 % Cream 28.35 GM TUBE 1 APPL TOPICAL (06:01)
--- NOTE | 2022-04-19 11:14 | HO.PSYCHPN ---
Subjective Subjective Date of Service: 04/19/22 Reason For Visit: Anxiety Subjective Notes: Conditional Voluntary Healthcare Proxy: No Guardianship: No Medical Problems Affecting Mental Status: No Interim History: Pt doing ok - ongoing odd behaviors but no si/hi, no s/e of medications Review of Systems Review of Systems: eczema requiring bid dosing of hydrocortison Mental Status Exam Mental Status Exam Narrative: dressed with sole as robe buttoned oddly- Patient Appearance: Disheveled and Unkempt Patient Orientation: Person, Place, Time and Situation Level of Consciousness: Awake and Alert Patient Behavior: Talkative, Cooperative, Restless and Invasion - Personal Space Mood Description: Calm Affect Description: Cheerful Patient Cognition Impaired: No Ability to Follow Directions: Fair Speech Pattern: Clear Hallucinations: None Delusions: Not Present Thought Process: Intact Thought Content: positive for Circumstantial Judgement: Fair Diagnostics Vital Signs (24Hr): Vital Signs - 24 hr 04/18/22 18:00 04/19/22 06:00 Temperature 97.4 F 97.7 F Pulse Rate 99 99 Respiratory Rate 18 16 Blood Pressure 136/80 124/85 Pulse Oximetry 98 97 Oxygen Delivery Method Room Air Room Air Medications Medications Current Medications Acetaminophen (Acetaminophen 325 Mg Tablet) 650 mg PO Q6H PRN PRN Reason: Headache/Pain Mild Scale (1-3) Al Hydroxide/Mg Hydroxide (Magnesium Hydrox/Alum Hydrox 30 Ml Oral.Susp) 30 ml PO Q6H PRN PRN Reason: Heartburn/Nausea Clozapine (Clozapine 100 Mg Tablet) 200 mg PO BEDTIME [facility] Last Admin: 04/18/22 20:53 Dose: 200 mg Clozapine (Clozapine 25 Mg Tablet) 25 mg PO BEDTIME [facility] Last Admin: 04/18/22 20:53 Dose: 25 mg Hydroxyzine HCl (Hydroxyzine Hcl 25 Mg Tablet) 25 mg PO Q6H PRN PRN Reason: Anxiety Magnesium Hydroxide (Milk Of Magnesia 30 Ml Oral.Susp) 30 ml PO DAILY PRN PRN Reason: Constipation Olanzapine (Olanzapine 2.5 Mg Tablet) 2.5 mg PO TID PRN PRN Reason: anxiety/agitation Last Admin: 04/06/22 14:11 Dose: 2.5 mg Trazodone HCl (Trazodone Hcl 50 Mg Tablet) 50 mg PO BEDTIME PRN PRN Reason: Insomnia Allergies Allergies Allergy/AdvReac Type Severity Reaction Status Date / Time No Known Allergies Allergy Verified 04/02/22 14:28 Assessment & Plan Assessment & Plan (1) Schizoaffective disorder: Status: Acute Code(s): F25.9 - Schizoaffective disorder, unspecified Assessment and Plan: stabilizing still some odd behaviors but not harmful (2) CLAYTON (generalized anxiety disorder): Status: Acute Code(s): F41.1 - Generalized anxiety disorder Plan Patient is a 56-year-old male with history of bipolar disorder (rule out schizoaffective) who presents for disorganized behavior, running down the street yelling and picked up by police, in the face of being off clozapine for several weeks -patient wants to get back on clozapine; aligner typewriter restarted him in [place]; aligner typewriter also reviewed risks/side effects of clozapine which patient mostly already knew. 04/04/2022: Will increase nighttime Clozaril to 50 mg, with AM clozapine 25mg 04/05/2022: Will increase nighttime Clozaril to 75 mg and continue a.m. Clozaril 25 mg 04/06/22 remains disorganized, manic, singing, dancing and easily triggered into anger however has remained redirectable. Agrees to Zyprexa both scheduled and as p.r.n. for agitation while clozapine is titrating. Says he is taking in the past. 04/07 Mild improvement with Zyprexa 2.5 b.i.d. and clonazepam increase to t.i.d. , both scheduled.? Continue to titrate clozapine 04/08 continue with clozapine titration 04/09 keep same treatment, slight sedation during the morning. 04/10/22: continue current plan. 04/11: Continue current treatment plan. ANC 3.4K on 04/09. 04/12: Eczematous rash on the forearms will use hydrocortisone. Monitor papular rash on the torso and abdomen. 04/13 rash seems to be resolving; pt feels it's better and not associated w/ meds; wants to continue. 04/14 rash significantly improved and resolving Patient feels that he is getting close to his regular self; he still has some odd behaviors and has an odd speech pattern however it is possible this may be his baseline. Will need collateral to better assess. While patient was previously at clozapine 300 mg in the community, will hold off increasing dose further at this time given his report that he is close to baseline; will get levels and monitor to see if his behaviors continue to stabilize before increasing dose. -patient is also on Zyprexa 2.5 mg b.i.d. which is likely helping patient be more organized and taking a place of a higher dose of clozapine; as it is much better for patient to be on only 1 antipsychotic, will taper off Zyprexa and see if he remains stable. If so will leave clozapine at 225 mg; otherwise will increase back towards previous home dose. 04/16 pt is close to baseline which includes some odd behaviors such as dancing around; sleeping well through the night. However, this is while he's been on both Zyprexa and Clonazepam; will dc both and monitor for continued stability since he is on lower than home dose of Clozapine. ? -rash resolved 04/17 remains stable; anxious about ; shares some of his chronic excessive anxiety which can be debilitating; after continued demonstration of mood stability, will consider treatment options for this anxiety? PLAN: CV q15 min checks; Continue clozapine to 225 q.h.s. (patient previously at 300 mg in the community; will monitor) DC Zyprexa: see if stable without DC Clonazepam: see if stable w/out Clozapine level ordered Performance Test Architect Reviewed Labs from [place] [facility] where pt transferred from: CBC, Lytes, Bun/Cr, Ca, UA, UDS all WNL collateral from /therapist indicate that patient is at or close to baseline I spent minutes with the patient and/or on the patient floor today, greater than?50% of which was spent counseling/coordinating care. Patient educated on: medical condition Informed Consent: understands Reason for contiued inpatient stay Substantial Risk for: inability to function and rapid decompensation
[2022-04-19 18:00] VITALS: BP 138/83; PULSE 99; RESP 18; TEMP 36.4; O2SAT 97
[2022-04-19] MEDS: cloZAPine 100 MG TABLET 200 MG PO (21:07)
[2022-04-19] MEDS: cloZAPine 25 MG TABLET PO (21:07)
[2022-04-20 06:00] VITALS: BP 122/79; PULSE 100; RESP 18
[2022-04-20] MEDS: Hydrocortisone 1 % Cream 28.35 GM TUBE 1 APPL TOPICAL ×2 (08:49→19:48)
--- NOTE | 2022-04-20 10:27 | P.PNPSI_ITS ---
Subjective Subjective Date of Service: 04/20/22 Reason For Visit: Anxiety Interim History: feeling better; is doing better and back home discussed hx of anxiety which can be severe; says will often think that the worst possible outcome to a situation is the most likely; also, will have to organize items on his desk to the point that he can not get any work done; discussed addressing this with medications and he said he'd consider. Mental Status Exam Mental Status Exam Narrative: Pt is alert and oriented; behavior is organized, still some odd behaviors such as dancing, pirouetting (which is baseline); no longer intermittently agitated; patient is not in distress; dressed in odd attire; clean shaven with good hygiene; mood is pretty good and affect calm, brighter, sometimes more expressive but WNL; eye contact appropriate; Speech is normal rate and volume though with somewhat of an odd prosody also baseline; no longer pressured;no intermittent psychomotor agitation; thought process is goal directed, linear; Thought content is mostly focused on treatment, relationship with ; no delusional content or paranoid ideations expressed; denies any SI/HI. Denies AVH; Patients insight and judgment are adequate. Diagnostics Vital Signs (24Hr): Vital Signs - 24 hr 04/19/22 18:00 04/20/22 06:00 Temperature 97.6 F Pulse Rate 99 100 Respiratory Rate 18 18 Blood Pressure 138/83 122/79 Pulse Oximetry 97 Oxygen Delivery Method Room Air Room Air Medications Medications Current Medications Acetaminophen (Acetaminophen 325 Mg Tablet) 650 mg PO Q6H PRN PRN Reason: Headache/Pain Mild Scale (1-3) Al Hydroxide/Mg Hydroxide (Magnesium Hydrox/Alum Hydrox 30 Ml Oral.Susp) 30 ml PO Q6H PRN PRN Reason: Heartburn/Nausea Clozapine (Clozapine 100 Mg Tablet) 200 mg PO BEDTIME [facility] Last Admin: 04/19/22 21:07 Dose: 200 mg Clozapine (Clozapine 25 Mg Tablet) 25 mg PO BEDTIME [facility] Last Admin: 04/19/22 21:07 Dose: 25 mg Hydrocortisone (Hydrocortisone 1 % Cream 28.35 Gm Tube) 1 appl TOPICAL BID [facility]; Protocol Last Admin: 04/20/22 08:49 Dose: 1 appl Hydroxyzine HCl (Hydroxyzine Hcl 25 Mg Tablet) 25 mg PO Q6H PRN PRN Reason: Anxiety Magnesium Hydroxide (Milk Of Magnesia 30 Ml Oral.Susp) 30 ml PO DAILY PRN PRN Reason: Constipation Olanzapine (Olanzapine 2.5 Mg Tablet) 2.5 mg PO TID PRN PRN Reason: anxiety/agitation Last Admin: 04/06/22 14:11 Dose: 2.5 mg Trazodone HCl (Trazodone Hcl 50 Mg Tablet) 50 mg PO BEDTIME PRN PRN Reason: Insomnia Allergies Allergies Allergy/AdvReac Type Severity Reaction Status Date / Time No Known Allergies Allergy Verified 04/02/22 14:28 Assessment & Plan Assessment & Plan (1) Schizoaffective disorder: Status: Acute Code(s): F25.9 - Schizoaffective disorder, unspecified Assessment and Plan: stabilizing still some odd behaviors but not harmful (2) CLAYTON (generalized anxiety disorder): Status: Acute Code(s): F41.1 - Generalized anxiety disorder Plan Patient is a 56-year-old male with history of bipolar disorder (rule out schizoaffective) who presents for disorganized behavior, running down the street yelling and picked up by police, in the face of being off clozapine for several weeks -patient wants to get back on clozapine; communications writer restarted him in [place]; communications writer also reviewed risks/side effects of clozapine which patient mostly already knew. 04/04/2022: Will increase nighttime Clozaril to 50 mg, with AM clozapine 25mg 04/05/2022: Will increase nighttime Clozaril to 75 mg and continue a.m. Clozaril 25 mg 04/06/22 remains disorganized, manic, singing, dancing and easily triggered into anger however has remained redirectable. Agrees to Zyprexa both scheduled and as p.r.n. for agitation while clozapine is titrating. Says he is taking in the past. 04/07 Mild improvement with Zyprexa 2.5 b.i.d. and clonazepam increase to t.i.d. , both scheduled.? Continue to titrate clozapine 04/08 continue with clozapine titration 04/09 keep same treatment, slight sedation during the morning. 04/10/22: continue current plan. 04/11: Continue current treatment plan. ANC 3.4K on 04/09. 04/12: Eczematous rash on the forearms will use hydrocortisone. Monitor papular rash on the torso and abdomen. 04/13 rash seems to be resolving; pt feels it's better and not associated w/ meds; wants to continue. 04/14 rash significantly improved and resolving Patient feels that he is getting close to his regular self; he still has some odd behaviors and has an odd speech pattern however it is possible this may be his baseline. Will need collateral to better assess. While patient was previously at clozapine 300 mg in the community, will hold off increasing dose further at this time given his report that he is close to baseline; will get levels and monitor to see if his behaviors continue to stabilize before increasing dose. -patient is also on Zyprexa 2.5 mg b.i.d. which is likely helping patient be more organized and taking a place of a higher dose of clozapine; as it is much better for patient to be on only 1 antipsychotic, will taper off Zyprexa and see if he remains stable. If so will leave clozapine at 225 mg; otherwise will increase back towards previous home dose. 04/16 pt is close to baseline which includes some odd behaviors such as dancing around; sleeping well through the night. However, this is while he's been on both Zyprexa and Clonazepam; will dc both and monitor for continued stability since he is on lower than home dose of Clozapine. ? -rash resolved 04/17 remains stable; anxious about ; shares some of his chronic excessive anxiety which can be debilitating; after continued demonstration of mood stability, will consider treatment options for this anxiety? PLAN: CV q15 min checks; Continue clozapine to 225 q.h.s. (patient previously at 300 mg in the community; will monitor) DC Zyprexa: see if stable without DC Clonazepam: see if stable w/out Clozapine level ordered Pin Pusher Reviewed Labs from [place] [facility] where pt transferred from: CBC, Lytes, Bun/Cr, Ca, UA, UDS all WNL collateral from /therapist indicate that patient is at or close to baseline I spent minutes with the patient and/or on the patient floor today, greater than?50% of which was spent counseling/coordinating care. Patient educated on: diagnosis and medication risk/benefits Informed Consent: understands Reason for contiued inpatient stay Substantial Risk for: med/psych decompensation
[2022-04-20 16:51] VITALS: BP 147/76; PULSE 80; RESP 16; TEMP 36.6; O2SAT 94
[2022-04-20] MEDS: cloZAPine 25 MG TABLET PO (19:46)
[2022-04-20] MEDS: cloZAPine 100 MG TABLET 200 MG PO (19:47)
[2022-04-21 09:04] VITALS: BP 113/86; PULSE 102; RESP 16; TEMP 36.3; O2SAT 99
[2022-04-21] MEDS: Hydrocortisone 1 % Cream 28.35 GM TUBE 1 APPL TOPICAL (09:29)
--- NOTE | 2022-04-21 15:41 | P.PNPSI_ITS ---
Subjective Subjective Date of Service: 04/21/22 Reason For Visit: Anxiety Interim History: Late entry for patient seen 04/21 Patient reports that he continues to do well and feels that he is back to his regular self. He is pleased that he is able to achieve this on a lower dose of clozapine. [employer] and patient discussed history of anxiety, feelings of being neglected in relationships and some OCD type symptoms however patient remained ambivalent about medication and did not want to start it now. He says he is in therapy weekly which is helpful. Sleeping and eating well. Patient feels ready and safe to go home and is looking for to discharge tomorrow Mental Status Exam Mental Status Exam Narrative: Pt is alert and oriented; behavior is organized, friendly, overall calm; still some odd behaviors such as dancing, pirouetting (however this is baseline);patient is not in distress; dressed in hospital attire; clean shaven with good hygiene; mood is good and affect calm, bright, sometimes more expressive but WNL; eye contact appropriate; Speech is normal rate and volume though with somewhat of an odd prosody which is also baseline; not pressured;no intermittent psychomotor agitation; thought process is goal directed, linear; Thought content is mostly focused on treatment, relationship with , discharge; no delusional content or paranoid ideations expressed; denies any SI/HI. Denies AVH; Patients insight and judgment are fair and adequate. Diagnostics Vital Signs (24Hr): Vital Signs - 24 hr 04/21/22 09:04 04/21/22 16:07 Temperature 97.4 F Pulse Rate 102 H 83 Respiratory Rate 16 Blood Pressure 113/86 132/78 Pulse Oximetry 99 Oxygen Delivery Method Room Air Labs Labs: Laboratory Results - last 48 hr 04/17/22 07:54 Clozapine 229 Norclozapine 177 Medications Medications Current Medications Acetaminophen (Acetaminophen 325 Mg Tablet) 650 mg PO Q6H PRN PRN Reason: Headache/Pain Mild Scale (1-3) Al Hydroxide/Mg Hydroxide (Magnesium Hydrox/Alum Hydrox 30 Ml Oral.Susp) 30 ml PO Q6H PRN PRN Reason: Heartburn/Nausea Clozapine (Clozapine 100 Mg Tablet) 200 mg PO BEDTIME GENNA Last Admin: 04/21/22 20:08 Dose: 200 mg Clozapine (Clozapine 25 Mg Tablet) 25 mg PO BEDTIME GENNA Last Admin: 04/21/22 20:08 Dose: 25 mg Hydrocortisone (Hydrocortisone 1 % Cream 28.35 Gm Tube) 1 appl TOPICAL BID GENNA; Protocol Last Admin: 04/21/22 20:08 Dose: Not Given Hydroxyzine HCl (Hydroxyzine Hcl 25 Mg Tablet) 25 mg PO Q6H PRN PRN Reason: Anxiety Magnesium Hydroxide (Milk Of Magnesia 30 Ml Oral.Susp) 30 ml PO DAILY PRN PRN Reason: Constipation Olanzapine (Olanzapine 2.5 Mg Tablet) 2.5 mg PO TID PRN PRN Reason: anxiety/agitation Last Admin: 04/06/22 14:11 Dose: 2.5 mg Trazodone HCl (Trazodone Hcl 50 Mg Tablet) 50 mg PO BEDTIME PRN PRN Reason: Insomnia Allergies Allergies Allergy/AdvReac Type Severity Reaction Status Date / Time No Known Allergies Allergy Verified 04/02/22 14:28 Assessment & Plan Assessment & Plan (1) Schizoaffective disorder: Status: Acute Code(s): F25.9 - Schizoaffective disorder, unspecified Assessment and Plan: stabilizing still some odd behaviors but not harmful (2) CLAYTON (generalized anxiety disorder): Status: Acute Code(s): F41.1 - Generalized anxiety disorder Plan Patient is a 56-year-old male with history of bipolar disorder (rule out schizoaffective) who presents for disorganized behavior, running down the street yelling and picked up by police, in the face of being off clozapine for several weeks -patient wants to get back on clozapine; 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 04/04/2022: Will increase nighttime Clozaril to 50 mg, with AM clozapine 25mg 04/05/2022: Will increase nighttime Clozaril to 75 mg and continue a.m. Clozaril 25 mg 04/06/22 remains disorganized, manic, singing, dancing and easily triggered into anger however has remained redirectable. Agrees to Zyprexa both scheduled and as p.r.n. for agitation while clozapine is titrating. Says he is taking in the past. 04/07 Mild improvement with Zyprexa 2.5 b.i.d. and clonazepam increase to t.i.d. , both scheduled.? Continue to titrate clozapine 04/08 continue with clozapine titration 04/09 keep same treatment, slight sedation during the morning. 04/10/22: continue current plan. 04/11: Continue current treatment plan. ANC 3.4K on 04/09. 04/12: Eczematous rash on the forearms will use hydrocortisone. Monitor papular rash on the torso and abdomen. 04/13 rash seems to be resolving; pt feels it's better and not associated w/ meds; wants to continue. 04/14 rash significantly improved and resolving Patient feels that he is getting close to his regular self; he still has some odd behaviors and has an odd speech pattern however it is possible this may be his baseline. Will need collateral to better assess. While patient was previously at clozapine 300 mg in the community, will hold off increasing dose further at this time given his report that he is close to baseline; will get levels and monitor to see if his behaviors continue to stabilize before increasing dose. -patient is also on Zyprexa 2.5 mg b.i.d. which is likely helping patient be more organized and taking a place of a higher dose of clozapine; as it is much better for patient to be on only 1 antipsychotic, will taper off Zyprexa and see if he remains stable. If so will leave clozapine at 225 mg; otherwise will increase back towards previous home dose. 04/16 pt is close to baseline which includes some odd behaviors such as dancing around; sleeping well through the night. However, this is while he's been on both Zyprexa and Clonazepam; will dc both and monitor for continued stability since he is on lower than home dose of Clozapine. ? -rash resolved 04/17 remains stable; anxious about ; shares some of his chronic excessive anxiety which can be debilitating; after continued demonstration of mood stability, will consider treatment options for this anxiety? 04/21 Patient reports that he continues to do well and feels that he is back to his regular self. He is pleased that he is able to achieve this on a lower dose of clozapine. [employer] and patient discussed history of anxiety, feelings of being neglected in relationships and some OCD type symptoms however patient remained ambivalent about medication and did not want to start it now. He says he is in therapy weekly which is helpful. Sleeping and eating well. Patient feels ready and safe to go home and is looking for to discharge tomorrow. Patient is returning home to a supportive environment of his and has outpatient providers. Patient is at baseline, eating and sleeping well, good mood, no SI, HI or AVH with clear, linear thought process and overall appro priate behaviors. He is not in imminent risk for harm to self or others and his request for discharge honored. PLAN: CV q15 min checks; Continue clozapine to 225 q.h.s. (patient previously at 300 mg in the community; will monitor) DC Zyprexa: see if stable without DC Clonazepam: see if stable w/out Clozapine level ordered [employer] Reviewed Labs from [place] ED where pt transferred from: CBC, Lytes, Bun/Cr, Ca, UA, UDS all WNL collateral from /therapist indicate that patient is at or close to baseline I spent minutes with the patient and/or on the patient floor today, greater than?50% of which was spent counseling/coordinating care. Patient educated on: diagnosis, medication risk/benefits and therapeutic strategies Informed Consent: understands Reason for contiued inpatient stay Substantial Risk for: stable for discharge
[2022-04-21 16:07] VITALS: BP 132/78; PULSE 83
[2022-04-21 16:59] LABS: Clozapine (Clozaril) 229 mcg/L; Norclozapine 177 mcg/L (25-400)
[2022-04-21] MEDS: cloZAPine 100 MG TABLET 200 MG PO (20:08)
[2022-04-21] MEDS: cloZAPine 25 MG TABLET PO (20:08)
[2022-04-22 06:00] VITALS: BP 140/78; PULSE 84; RESP 16; TEMP 36.5; O2SAT 98
--- NOTE | 2022-04-22 08:52 | P.DS_ITS ---
DS: Providers Provider Date of Service: 04/22/22 Date of admission: 04/02/22 17:56 Date of discharge: 04/22/22 Primary care physician: Unknown Physician Attending physician on admission: James Ashby Consults: 04/02/22 14:29 Consult to Hospitalist Routine Consulting Provider: Hospitalist Reason For Exam: Transfer from [facility] Attending physician on discharge: James Ashby DS: Diagnosis Discharge Diagnosis (1) Schizoaffective disorder: Status: Acute (2) CLAYTON (generalized anxiety disorder): Status: Acute DS: Medications Discharge Medications Home Medications: Previous Rx's Medication Instructions Recorded clozapine 200 mg tablet 200 mg PO BEDTIME 30 days #30 tabs 04/22/22 clozapine 25 mg tablet 25 mg PO BEDTIME 30 days #30 tabs 04/22/22 Mental Status Exam Mental Status Exam Narrative: Pt is alert and oriented; behavior is organized, friendly, overall calm; still some odd behaviors such as dancing, pirouetting (however this is baseline);patient is not in distress; dressed in hospital attire; clean shaven with good hygiene; mood is good and affect calm, bright, sometimes more expressive but WNL; eye contact appropriate; Speech is normal rate and volume though with somewhat of an odd prosody which is also baseline; not pressured;no intermittent psychomotor agitation; thought process is goal directed, linear; Thought content is mostly focused on treatment, relationship with , discharge; no delusional content or paranoid ideations expressed; denies any SI/HI. Denies AVH; Patients insight and judgment are fair and adequate. Data Data Completed and Pending Completed studies during hospitalization [Text1]: 04/17/22 04/17/22 07:54 07:54 Absolute Neuts (auto) 4.8 Clozapine 229 Norclozapine 177 DS: Summary Hospital Course Hospital Course: HPI: Patient is a 56-year-old male with history of bipolar disorder, anxiety/OCD who presents for disorganized behavior, running down the street yelling and picked up by police, in the face of being off clozapine for several weeks -patient wants to get back on clozapine; rewriter restarted him in [employer]; rewriter also reviewed risks/side effects of clozapine which patient mostly already knew. Hospital course: On admission, patient was disorganized, manic, hyperactive and hyperverbal, dancing around and singing in the hallway and easily triggered to anger, though remaining redirectable.? He did maintain insight knowing he had bipolar disorder and wanted to restart clozapine. ?He was without any paranoid thinking and denied any AVH. Patient agreed to Zyprexa scheduled while clozapine was titrating, saying that it had helped in the past; he was also on Clonazepam scheduled for some time. ??Clozapine was titrated and over time, patient's liz resolved. He was able to be tapered off both Zyprexa and Clonazepam.? Momentarily he developed a papular rash on torso and abdomen but this also fully resolved with some hydrocortisone cream.? Patient was pleasant and appropriate with staff and peers and would attend groups.? He was sleeping through the night and eating well.? Interestingly, Even as manic symptoms abated, patient r emained with some odd prosody and would still periodically dance around or time his clothing up in an odd pattern.? Collateral obtained from his who reported this is baseline behavior; she said they are both ?odd? and that as long as patient is sleeping and without any paranoid delusions, he seemed close to his regular self.? Patient was able to stabilize on a lower clozapine dose than before which he was happy about.? Patient shared about his chronic excessive anxiety which could be debilitated and reported some OCD type symptoms.? However at this time he did not want to add any medication to address this.? Patient felt ready to go home.? He remained without any SI or HI or AVH throughout his admission.? His manic symptoms resolved and he was sleeping well and maintained a clear, linear thought process. ?He was appropriate with peers and staff and in good behavioral and impulse control.? He is returning to his supportive .? Patient was not in imminent risk for harm to self or others his request for discharge honored. Time spent discussing smoking cessation with patient: 3 to 10 minutes Status at Discharge Functional status at discharge: independent ambulation Overall status at discharge: patient is back to baseline Time Spent with Patient Time attestation: Total time spent providing and/or coordinating discharge services: Time spent: Less than 30 minutes Discharge Plan Discharge Anticipated Discharge Date/Time: 04/22/22 01:00 Patient Disposition: Home, Self-Care Discharge Diagnosis: Bipolar disorder Type I, recurrent, severe in full remission Referrals: PCP: Hope Clayton ([facility]) [Other] - 04/27/22 11:00 am (This appointment is in person, at their office at the above address) Therapist: Shelbi ([facility]) [Other] - 05/06/22 1:00 pm (This appointment is in person, at their office ) Discharge Medications: New clozapine 200 mg tablet 200 mg PO BEDTIME 30 Days Qty: 30 1RF Rx Instructions: take with 25mg tab for total of 225mg qhs clozapine 25 mg Tablet 25 mg PO BEDTIME 30 Days Qty: 30 1RF Rx Instructions: take with 200mg tab for total of 225mg qhs Discharge Orders: Discharge Order (Routine); Ordered 04/22/22 Ordered By: James Ashby Diet: Regular diet Activity on Discharge: As tolerated Stand Alone Forms: Patient Portal Discharge page, Community Support Care Plan Goals: Maintain mood and safe behaviors Take medications as prescribed Practice coping skills Continue with outpatient providers and reach out to them as needed Health Concerns: Mood stability and behaviors Plan of Treatment: Follow up with your Psychiatric provider and other outpatient providers regarding above concerns Take medications as prescribed Assessment: Risk assessment at time of discharge:? Patient was interviewed prior to discharge and found to be fully oriented and without any SI or HI. Patient has insight and demonstrates good judgment in terms of wanting to pursue treatment. Patient is not in imminent risk of harm to self or others and has a safety plan that includes presenting to the closest ER or calling 911 if feeling unsafe.? Patient has been observed closely by nursing and unit staff throughout admission; patient has not engaged in any behaviors that suggest dangerousness to self or others and has demonstrated appropriate behaviors and impulse control Discharge Date/Time: 04/22/22 13:20
[2022-04-22] MEDS: Hydrocortisone 1 % Cream 28.35 GM TUBE 1 APPL TOPICAL (09:02)
[2022-04-22 11:02] LABS: Neut%MD 62.8 %; Neutrophils Absolute Auto 3.3 x10*3/uL (2.0-8.3); WBCANC 5.3 X10*3/uL
== END 2022-04-22 13:20 | disposition home or self-care (01) | DRG 885 ==
PROVIDERS: Clinical Nurse Specialist Psychiatric/Mental Health, Adult; Admitting Provider Psychiatry & Neurology Psychiatry; Visit Provider Psychiatry & Neurology Psychiatry
DX: F31.9 Bipolar disorder, unspecified (principal); F41.1 Generalized anxiety disorder; F17.210 Nicotine dependence, cigarettes, uncomplicated; I10 Essential (primary) hypertension; R73.03 Prediabetes; Z71.6 Tobacco abuse counseling
CPT/HCPCS: 36415; 80061; 80159; 82607; 82746; 83036; 83735; 84439; 84443; 85048; 93005

== ENCOUNTER 2022-06-05 22:30 | Inpatient (IN) | payer MEDICARE, MEDICAID, SELFPAY ==
--- OUTSIDE RECORDS SUMMARY | 2022-06-05 22:35 | XMS_ITS | Continuity of Care Document ---
:1965 Author Organization [facility] nter Inpatient Psychiatry Address [address] [place] [address]- Care Team Providers Name Role Phone Not on Staff, PCP Primary Care Physician Unavailable Encounter [facility] Date(s): 07/21/21 - 07/28/21 [facility] Inpatient Psychiatry [address] [place] [address]- Discharge Disposition: A-D/C Home Attending Physician: Irasema Torres MD Admitting Physician: Perez Huerta MD, Irasema Henderson Referring Physician: Irasema Torres MD Allergies, Adverse Reactions, Alerts No Known Medication Allergies Immunizations Given and Recorded Vaccine Date Status Refusal Reason influenza virus vaccine, inactivated 07/22/21 Given Medications clozapine 100 mg oral tablet 3 tablet = 300 mg, By Mouth, Daily at bedtime, 0 Refills, Maintenance, 07/28/21 11:03:00 EDT, Tablet, Partial fill upon patient request if the prescription is for a schedule II opioid drug. Start Date: 07/28/21 Status: Orderedmelatonin 3 mg oral tablet By Mouth, Daily at bedtime, 0 Refills, Maintenance, 07/28/21 11:04:00 EDT, Tablet, Partial fill uponpatient request if the prescription is for a schedule II opioid drug. Start Date: 07/28/21 Status: OrderedmetFORMIN 500 mg oral tablet 1 each = 500 mg, By Mouth, 2 times a day, # 60 tablet, 0 Refills, Maintenance, 07/28/21 11:14:00 EDT, Tablet, [facility]/pharmacy #[id number], Partial fill upon patient request if the prescription is for a scheduleII opioid drug., 178, cm, 07/28/21 10:02:00 EDT,... Start Date: 07/28/21 Status: Orderedmetoprolol 25 mg oral tablet 25 mg, Tablet, By Mouth, 07/27/21 9:00:00 EDT Start Date: 07/27/21 Stop Date: 07/27/21 Status: Completedmetoprolol 25 mg oral tablet 25 mg, 1, tablet, By Mouth, 2 times a day, # 60 tablet, Refills 0, Tot. Refills 0, Maintenance, 07/28/21 11:15:00 EDT, Route to Pharmacy Electronically, [facility]/pharmacy #[id number], Partial fill upon patient request if the prescription is for a schedule II opi... Start Date: 07/28/21 Status: Ordered Vital Signs Most recent to oldest 1 2 3 [Reference Range]: Height 178 cm 178 cm 178 cm (07/28/21 10:02 AM) (07/27/21 8:57 PM) (07/27/21 9: 55 AM) Weight 69.5 kg (07/21/21 3:04 PM) Oxygen Saturation [94-100 %] 98 % 97 % 98 % (07/28/21 10:02 AM) (07/27/21 8:57 PM) (07/27/21 9: 55 AM) Pulse Rate [55-90 bpm] 81 bpm 80 bpm 78 bpm (07/28/21 10:02 AM) (07/27/21 8:57 PM) (07/27/21 9: 57 AM) Body Mass Index [18.5-24.99] 21.94 (07/21/21 3:04 PM) Blood Pressure [90-138/55-84 110/70 mm Hg 126/77 mm Hg 110 /67 mm Hg mm Hg] (07/28/21 10:02 AM) (07/27/21 8:57 PM) (07/27/21 9: 57 AM) Respiratory Rate [16-30 18 br/min 18 br/min 18 br/mi n br/min] (07/28/21 11:12 AM) (07/28/21 10:02 AM) (07/27/21 8 :57 PM) Temperature [96.8-100.4 DegF] 97.1 DegF 97.6 DegF 96 .9 DegF (07/28/21 10:02 AM) (07/27/21 8:57 PM) (07/27/21 9: 55 AM) Mode of Delivery (Oxygen) Room air Room air Room a ir (07/28/21 10:02 AM) (07/27/21 8:57 PM) (07/27/21 9: 55 AM) Blood pressure sites Arm, left Arm, left Arm, right (07/28/21 10:02 AM) (07/27/21 8:57 PM) (07/27/21 9: 55 AM) Temperature Route Temporal Tympanic Temporal (07/28/21 10:02 AM) (07/27/21 8:57 PM) (07/27/21 9: 55 AM) Dry Weight 69.5 kg (07/21/21 3:04 PM)
--- OUTSIDE RECORDS SUMMARY | 2022-06-05 22:35 | XMS_ITS | Continuity of Care Document ---
:1965 Author Organization [facility] nter Inpatient Psychiatry Address [address] [place] [address]- Care Team Providers Name Role Phone Not on Staff, PCP Primary Care Physician Unavailable Encounter [facility] Date(s): 11/11/21 - 11/21/21 [facility] Inpatient Psychiatry [address] [place] [address]- Discharge Disposition: A-D/C Home Attending Physician: Irasema Torres MD Admitting Physician: Perez Huerta MD, Irasema Henderson Referring Physician: Irasema Torres MD Allergies, Adverse Reactions, Alerts No Known Medication Allergies Immunizations Given and Recorded Vaccine Date Status Refusal Reason influenza virus vaccine, inactivated 07/22/21 Given Medications clozapine 100 mg oral tablet 3 tablet = 300 mg, By Mouth, Daily at bedtime, # 45 tablet, 0 Refills, Maintenance, 11/21/21 11:02:00 EDT, Tablet, [facility]/pharmacy #[id number], Partial fill upon patient request if the prescription is for a schedule II opioid drug., sonia Lisa, 11/21/21 9:38:00 E... Start Date: 11/21/21 Status: Orderedmelatonin 3 mg oral tablet 3 tablet = 9 mg, By Mouth, Daily at bedtime, 0 Refills, Maintenance, 07/28/21 11:04:00 EDT, Tablet, Partial fill upon patient request if the prescription is for a schedule II opioid drug. Start Date: 07/28/21 Status: OrderedmetFORMIN 500 mg oral tablet 1 each = 500 mg, By Mouth, 2 times a day, # 60 tablet, 0 Refills, Maintenance, 11/21/21 11:02:00 EDT, Tablet, [id number], Partial fill upon patient request if the prescription is for a scheduleII opioid drug., 177 cm, 11/21/21 9:38:00 EDT, H... Start Date: 11/21/21 Status: Orderedmetoprolol 25 mg oral tablet 25 mg, Tablet, By Mouth, 11/21/21 9:00:00 EDT Start Date: 11/21/21 Stop Date: 11/21/21 Status: Completedmetoprolol 25 mg oral tablet 25 mg, 1, tablet, By Mouth, 2 times a day, # 60 tablet, Refills 0, Tot. Refills 0, Maintenance, 11/21/21 11:03:00 EDT, Route to Pharmacy Electronically, [facility]/pharmacy #[id number], Partial fill upon patient request if the prescription is for a schedule II opi... Start Date: 11/21/21 Status: Orderedmetoprolol 25 mg oral tablet 25 mg, Tablet, By Mouth, 11/20/21 21:00:00 EDT Start Date: 11/20/21 Stop Date: 11/20/21 Status: Completed Vital Signs Most recent to oldest [Reference 1 2 3 Range]: Height 177 cm 177 cm 177 cm (11/21/21 9:38 AM) (11/20/21 4:20 PM) (11/20/21 9:16 A M) Weight 76.3 kg 72.7 kg (11/18/21 12:19 PM) (11/11/21 4:18 PM) Oxygen Saturation [94-100 %] 99 % 100 % 100 % (11/21/21 9:38 AM) (11/20/21 4:20 PM) (11/20/21 9:16 A M) Pulse Rate [55-90 bpm] 83 bpm 83 bpm 72 bpm (11/21/21 9:38 AM) (11/21/21 9:34 AM) (11/20/21 7:56 P M) Body Mass Index [18.5-24.99] 23.21 (11/11/21 4:18 PM) Blood Pressure [90-138/55-84 mm 125/66 mm Hg 125/66 mm Hg 105/69 mm Hg Hg] (11/21/21 9:38 AM) (11/21/21 9:34 AM) (11/20/21 7:56 P M) Respiratory Rate [16-30 br/min] 16 br/min 16 br/min 18 br/min (11/21/21 9:38 AM) (11/21/21 9:38 AM) (11/20/21 5:46 P M) Temperature [96.8-100.4 DegF] 97.7 DegF 96.4 DegF 97 .8 DegF (11/21/21 9:38 AM) *L* (11/20/21 9:16 AM ) (11/20/21 4:20 PM) Mode of Delivery (Oxygen) Room air Room air Room a ir (11/21/21 9:38 AM) (11/20/21 4:20 PM) (11/20/21 9:16 A M) Blood pressure sites Arm, left Arm, left Arm, left (11/21/21 9:38 AM) (11/20/21 4:20 PM) (11/20/21 9:16 A M) Temperature Route Temporal Temporal Temporal (11/21/21 9:38 AM) (11/20/21 4:20 PM) (11/20/21 9:16 A M) Dry Weight 72.7 kg (11/11/21 4:18 PM) Weight Obtained Via Standing scale (11/11/21 4:18 PM) Dry Weight Obtained Via Standing scale (11/11/21 4:18 PM)
--- OUTSIDE RECORDS SUMMARY | 2022-06-05 22:35 | XMS_ITS | Continuity of Care Document ---
:1965 Demographics Phone Email Address Preferred Language Kazakh Marital Status Restorationism Affiliation Agnosticism Race White Ethnic Group Not or Author Organization [facility] Address [address] [place] [address] Phone Care Team Providers Name Role Phone unknown, pcp Primary Care Provider Unavailable PRIETO North Attending Provider MD Millie Andrade Primary Care Provider MD Irasema Cruz Emergency Provider Unavailable Care Teams Patient Care Team Team Status: Active Member Role Status Dates Millie Andrade MD Primary Care Provider Active Visit Care Team Team Status: Inactive Member Role Status Dates pcp, unknown Primary Care Provider Active PRIETO Bowman Attending Provider Active Patient Care Team Team Status: Inactive Member Role Status Dates Millie Andrade MD Primary Care Provider Active Irasema Cruz MD Emergency Provider Active Chief Complaint and Reason for Visit Chief Complaint lab psych Allergies, Adverse Reactions, Alerts No known allergies Social History Smoking Status Status Start Date End Date Date of Observat ion Tobacco smoking consumption unknown June 05, 2022 1:40pm (finding) Additional Data Assigned Sex Male Problems Active Problems Medical Problem Onset Date Status Schizophrenia, acute Active Inactive/Resolved Problems Medical Problem Onset Date Status Acute psychosis Resolved Chronic schizophrenia Resolved Chronic schizophrenia Resolved Charity Resolved Schizophrenia Resolved Medications Medication Status Dose Units Route Directions Qty Days Start End Ins tructions Date Date Metoprolol Active 1 TAB PO 2 times a November Tartrate day 2021 11:00p m Clozaril Active 300 MG PO Bedtime July 20, 2021 12:00a m metformin Active 500 MG PO 2 times a July 12:00a m hydroxyzine Active 50 MG PO 3 times a July HCl 2021 12:00a m melatonin Active 9 MG PO Bedtime July 20, 2021 12:00a m metoprolol Discontinu 25 MG PO 2 times a July ed day 2021 12:00a 5:07am m Relevant Diagnostic Tests and/or Laboratory Data Laboratory Results Test Date/Time Result Interpretation Reference Result Comment Performing Range Site White Blood May 5.09 K/uL 3.5-11.0 [place] [facility] Count [id number] 8 2:14pm 2032 [facility] [place] [address] White Blood May 6.77 K/uL 3.5-11.0 [place] [facility] [id number] 8 3:16pm 2032 [facility] [place] [address] Red Blood May 4.79 M/uL 3.90-5.50 [place] [facility] Count [id number] 8 2:14pm 2032 [place] [address] Red Blood May 4.58 M/uL 3.90-5.50 [place] [facility] Count [id number] 8 3:16pm 2032 [facility] [place] [address] Hemoglobin May 14.1 g/dL 14.0-18.0 [place] [facility] 2022843 8 2:14pm 2032 [facility] [place] [address] Hemoglobin May 13.7 g/dL 14.0-18.0 [place] [facility] 2022843 8 3:16pm 2032 [facility] [place] [address] Hematocrit May 43.1 % 42.0-54.0 [place] [facility] [id number] 8 2:14pm 2032 [facility] [place] [address] Hematocrit May 40.8 % 42.0-54.0 [place] [facility] [id number] 8 3:16pm 2032 [facility] [place] [address] Mean May 90.0 fL 80.0-100.0 [place] [facility] Corpuscular 2022 438 Volume 2:14pm 2032 [facility] [place] [address] Mean May 89.1 fL 80.0-100.0 [place] [facility] Corpuscular 2022 438 Volume 3:16pm 2032 [facility] [place] [address] Mean May 29.4 pg 25.4-34.6 [place] [facility] Corpuscular 2022 438 Hemoglobin 2:2032 [facility] [place] [address] Mean May 29.9 pg 25.4-34.6 [place] [facility] Corpuscular 2022 438 Hemoglobin 3:2032 [facility] [place] [address] Mean May 32.7 g/dL 31.0-37.0 [place] [facility] Corpuscular 2022 438 Hemoglobin 2:2032 [facility] [place] [address] Mean Candace 33.6 g/dL 31.0-37.0 [place] [facility] Corpuscular 2022 438 Hemoglobin 3:2032 [facility] [place] [address] Red Cell Candace 13.7 % 11.5-14.5 [place] [facility] Distribution 2022D006 8438 Width 2:2032 [facility] [place] [address] Red Cell Candace 13.4 % 11.5-14.5 [place] [facility] Distribution 2022D006 8438 Width 3:162032 [facility] [place] [address] Platelet Count May 206 K/uL 150-400 [place] [facility] 2022843 8 2:142032 [facility] [place] [address] Platelet Count May 211 K/uL 150-400 [place] [facility] 2022843 8 3:162032 [facility] [place] [address] Neutrophils May 56.6 % 35.0-66.0 [place] [facility] (%) (Auto) 2022 38 2:142032 [facility] [place] [address] Neutrophils May 72.6 % 35.0-66.0 [place] [facility] (%) (Auto) 2022 38 3:16pm 2032 [facility] [place] [address] Lymphocytes May 34.8 % 25.0-45.0 [place] [facility] (%) (Auto) 2022 38 2:142032 [facility] [place] [address] Lymphocytes May 20.8 % 25.0-45.0 [place] [facility] (%) (Auto) 2022 38 3:16pm 2033 [facility] [place] [address] Monocytes (%) May 8.6 % 0.0-13.0 [place] [facility] (Auto) 2022843 8 2:14pm 2032 [place] [address] Monocytes (%) May 6.6 % 0.0-13.0 [place] [facility] (Auto) 2022843 8 3:162032 [place] [address] Eosinophils Candace 0.0 % 0.0-8.0 [place] [facility] (%) (Auto) 202284 38 2:14pm 2032 [place] [address] Eosinophils May 0.0 % 0.0-8.0 [place] [facility] (%) (Auto) 2022 38 3:16pm 2032 [place] [address] Basophils (%) May 0.0 % 0.0-1.0 [place] [facility] (Auto) 2022843 8 2:142032 [place] [address] Basophils (%) May 0.0 % 0.0-1.0 [place] [facility] (Auto) 2022843 8 3:16pm 2032 [place] [address] Absolute May 2.88 K/uL 1.5-7.5 Caution: [place] [facility] Neutrophils 2022 Interpretation 22 [id number] (auto) 2:14pm of ANC results 2032 without [place] [address] inclusion of the WBC differential results may lead to erroneous diagnosis; for example, missing myeloproliferati ve or lymphoproliferat jai disorders. Absolute Candace 4.91 K/uL 1.5-7.5 Caution: [place] [facility] Neutrophils 2022 Interpretation 22 [id number] (auto) 3:16pm of ANC results 2032 without [place] [address] inclusion of the WBC differential results may lead to erroneous diagnosis; for example, missing myeloproliferati ve or lymphoproliferat jai disorders. Lymphocytes # May 1.77 K/uL 0.8-4.8 [place] [facility] (Auto) 2022843 8 2:14pm 2032 [place] [address] Lymphocytes # May 1.41 K/uL 0.8-4.8 [place] [facility] (Auto) 2022843 8 3:16pm 2032 [place] [address] Monocytes # May 0.44 K/uL 0.4-1.3 [place] [facility] (Auto) 2022843 8 2:142032 [place] [address] Monocytes # May 0.45 K/uL 0.4-1.3 [place] [facility] (Auto) 2022843 8 3:16pm 2032 [place] [address] Eosinophils # May 0.00 K/uL 0.0-0.8 [place] [facility] (Auto) 2022843 8 2:14pm 2032 [place] [address] Eosinophils # May 0.00 K/uL 0.0-0.8 [place] [facility] (Auto) 2022843 8 3:162032 [place] [address] Basophils # May 0.00 K/uL 0.0-0.6 [place] [facility] (Auto) 2022843 8 2:14pm 2032 [place] [address] Basophils # May 0.00 K/uL 0.0-0.6 [place] [facility] (Auto) 2022843 8 3:162032 [place] [address] Sodium Level May 141 136-145 [place] [facility] ab 2022 mmol/L [id number] 8 3:162032 [place] [address] Potassium May 3.9 3.5-5.1 [place] [facility] Level 2022 mmol/L [id number] 8 3:162032 [place] [address] Chloride Level May 104 98-107 [place] [facility] 2022 mmol/L [id number] 8 3:162032 [place] [address] Carbon Dioxide May 29.3 22-29 [place] [facility] Level 2022 mmol/L [id number] 8 3:162032 [place] [address] Anion Gap May 12 mmol/L - [place] [facility] 2022843 8 3:16pm 2032 [facility] [place] [address] Blood Urea May 9 mg/dL - [place] [facility] Nitrogen 2022843 8 3:16pm 2032 [facility] [place] [address] Creatinine May 1.02 0.70-1.2 [place] [facility] 2022 mg/dL [id number] 8 3:16pm 2032 [facility] [place] [address] Glomerular May GFR Value: [place] [facility] Filtration 2022 ml/min/1.73 [id number] Rate Calc 3:16pm square meters 2032 [facility] *[place] [address] [place] , multiply result by 1.159 Chronic Kidney Disease is defined as less than60 ml/min/1.73 square meters.Kidney failure is less than 15 ml/min/1.73 square metersTest is not performed on patients under the age of 18 Glucose Level May 119 mg/dL 70-106 [place] [facility] 2022843 8 3:16pm 2032 [facility] [place] [address] Calcium Level May 9.6 mg/dL 8.4-10.3 [place] [facility] 2022843 8 3:16pm 2032 [facility] [place] [address] Total May 0.3 mg/dL 0.2-1.2 [place] [facility] Bilirubin 2022843 8 3:16pm 2032 [facility] [place] [address] Aspartate May 24 U/L 5-40 [place] [facility] Amino Transf 2022 8438 (AST/SGOT) 3:16pm 2032 [facility] [place] [address] Alanine May 23 U/L 5-41 [place] [facility] Aminotransfera 2022 [id number] [id number] se (ALT/SGPT) 3:16pm 2032 [facility] [place] [address] Total Protein May 6.6 g/dL 6.4-8.3 [place] [facility] 2022843 8 3:16pm 2032 [facility] [place] [address] Albumin May 4.4 g/dL 3.5-5.2 [place] [facility] 2022843 8 3:16pm 2032 [facility] [place] [address] Globulin May 2.2 gm/dl 2.0-3.5 [place] [facility] [id number] 8 3:16pm 2032 [facility] [place] [address] Albumin/Globul May 2.0 % 1.1-2.5 [place] [facility] in Ratio [id number] 8 3:16pm 2032 [facility] [place] [address] Alkaline May 75 U/L 40-129 [place] [facility] Phosphatase [id number] 438 3:16pm 2032 [facility] [place] [address] Coronavirus May Negative Negative ID NOW COVID-19 At [facility] Lab 2019 (LANEY) 2022 assay is a rapid 2 [id number] 6:43pm molecular in 2032 [place] [address] test utilizing an isothermal nucleic acid amplification technology intended for the qualitative detection of nucleic acid from SARS-CoV-2 viral RNA in direct nasal, nasopharyngeal or throat swabs eluted in viral transport media from individuals who are suspected of COVID-19.Results are for the identification of SARS-CoV-2 RNA which is generally detectable in respiratory samples during the acute phase of infection. Positive results are indicative of the presence of SARS-CoV-2 RNA; clinical correlation with patient history and other diagnostic information is necessary to determine patient infection status. Positive results do not rule out bacterial infection or co-infection with other viruses.Negative results do not preclude SARS-CoV-2 infection and should not be used as the sole basis for patient management decisions. Negative results must be combined with clinical observations, patient history, and epidemiological information.The ID NOW COVID-19 test is only for use under the Food and Drug Administration's Emergency Use Authorization. Salicylates May < 0.5 15-30 [place] [facility] Level 2022 mg/dL [id number] 3:16pm 2032 [facility] [place] [address] Urine Opiates May Negative Negative [place] [facility] Screen [id number] 8 2:01pm 2032 [facility] [place] [address] Acetaminophen May < 15 15-30 [place] [facility] Level 2022 ug/mL [id number] 3:16pm 2032 [facility] [place] [address] Urine May Negative Negative [place] [facility] Barbiturates [id number] 8438 Screen 2:01pm [address] [place] [address] Urine Candace Negative Negative [place] [facility] Phencyclidine 2022 22D00 77656 Screen 2:01pm [address] [place] [address] Urine Candace Negative Negative [place] [facility] Amphetamines 2022D006 8438 Screen 2:01pm [address] [place] [address] Urine Candace Negative Negative [place] [facility] Benzodiazepine 2022D0 129870 s Screen 2:012032 [address] [place] [address] Urine Cocaine Candace Negative Negative [place] [facility] Screen [id number] 8 2:01pm [address] [place] [address] Urine Candace Negative Negative [place] [facility] Marijuana 2022843 8 (THC) Screen 2:012032 [address] [place] [address] Urine Candace Negative Negative [place] [facility] Methadone [id number] 8 Screen 2:01pm [address] [place] [address] Urine Candace Negative Negative [place] [facility] Propoxyphene 2022D006 8438 Screen 2:01pm [address] [place] [address] Urine Candace Negative Negative [place] [facility] Oxycodone [id number] 8 Screen 2:01pm [address] [place] [address] Urine Drug Candace See Testing [place] [facility] Screen Comment 2022 Comments Thresholds are [id number] 2:01pm as [address] follows:[place] [address] mines 500 ng/mLBenzodiazep paulina 100 ng/mLPropoxyphen e 300 ng/mLBarbiturate s 200 ng/mLMethadone 300 ng/mLPCP/metabol ites 25 ng/mLCocaine/met abolites 300 ng/mLCannabinoid s 50 ng/mlOpiate Class 300 ng/mLOxycodone Class 100 ng/mLA Negative test result indicates that this analyte is eithernot present, OR is present at levels below the cutoffthreshold of this test.A Positive result from the assay indicates only the presenceof the analyte and does not necessarily correlate with theextent of physiological and psychological effects.Please Note:This is a screening method only. This specimen will not be automatically sent out to a reference laboratory for any confirmation testing. If the provider needs confirmation testing, Please call the laboratory within 24 hours to request further testing. Ethyl Alcohol May < 10 This result is A [facility] Lab Level 2022 mg/dL below the [id number] 8 3:16pm linearity of the [address] [place] [address] instrument and Hilary Anderson should be considered indistinguishabl e from zero.REFERENCE RANGE: NONE DETECTEDNo reference range is available fordetermination of clinical intoxication. Vital Signs Vital Reading Result Reference Range Collection Date/ Time Height 70 [in_i] June 05 1:23pm Weight 165.00 [lb_av] June 05 1:23pm Body Temperature 98.1 [degF] 96.8-100.4 June 05, 2 023 1:40pm Heart Rate 100 /min 50-100 June 05 1:40pm Respiratory rate 18 /min -June 05, 2 023 1:40pm Oxygen saturation by Pulse 97 % 92-100 2022 1:40pm oximetry BP Systolic 145 mm[Hg] 90-139 June 05 4:04pm BP Diastolic 83 mm[Hg] 60-89 June 05 4:04pm BMI (Body Mass Index) 23.6 kg/m2 June 052022 1:23pm Insurance Providers Guarantor Arnulfo Licona Address [address] [place] [address] Contact Info. Home Phone: Payer Policy Id Coverage Id Subscriber's Subscriber Id Effective E xpiration Name Date Date Medicaid [id number] Arnulfo [id number] Livan Medicare [id number] Arnulfo [id number] Livan Self Pay Self N/A Encounters Encounter Location(s) Arrival/Admit Date Discharge/Depart Date Provider(s) Departed [facility] June 03, 2022 June 03, 2022 Marcelino North , [facility] 2:08pm 2:09pm PRIETO Richard Departed [facility] June 05, 2022 June 05, 2022 [facility] 1:20pm 9:16pm katerin Delaneyt [place] Mental Status Observation Response Date Recorded oriented to person Yes June 05, 2022 7 :44pm Plan of Treatment Future Tests Future scheduled test information is unavailable Pending Tests Pending diagnostic test information is unavailable Future Visits Future appointment information is unavailable Referrals to Other Providers Reason for Referral Start Provider Provider Contact Provider Address Referral Date Information Millie Andrade Email: [email or web address] CURRENT Phone: [place] [address] Future Procedures Future procedure information is unavailable Future Medications Future medication information is unavailable Patient Instructions Patient instructions are unavailable
[2022-06-05 22:56] VITALS: BP 131/90; PULSE 84; RESP 18; TEMP 36.3; O2SAT 99
--- NOTE | 2022-06-05 23:00 | PC.NURSE ---
Hospitalist Dr. Soria notified of the need for H&P @ 7117 tonight.
--- NOTE | 2022-06-06 02:23 | PC.ADMIT ---
PT is a 49 year old man who arrived at [facility] on 06/05/22 @ 22:45 , after self presenting to [facility] [place] for SI with plan to OD on medication . He reports he stopped taking his prescribed medications 2 days ago because he doesn't like taking them . He is perseverant on his saying she wished she never him and is tearful at times during admission, he is otherwise pleasant and cooperative. He said he would like to try other medications and was encouraged to talk to his provider. He was last admitted to [facility] on 04/02/22 and was discharge 04/22/22.
[2022-06-06 08:13] LABS: Alanine Aminotransferase 26 U/L (0-40); Albumin Level 4.4 g/dL (3.5-5.0); Alkaline Phosphatase 71 U/L (39-117); Anion Gap 12 (12-20); Aspartate Amino Transferase 26 U/L (5-37); Bilirubin Total 0.4 mg/dL (0.0-1.0); Blood Urea Nitrogen 16 mg/dL (9-16); Calcium 9.7 mg/dL (8.4-10.2); Carbon Dioxide 24 mmol/L (22-29); Chloride 109 mmol/L (96-108); Cholesterol 148 mg/dL; Estimated Glomerular Filt Rate > 60; Glucose Fasting 112 mg/dL (60-99); HDL Cholesterol 40 mg/dL; LDL Cholesterol Calculated 89 mg/dl; Potassium 3.9 mmol/L (3.3-5.1); Sodium 141 mmol/L (135-145); Total Protein 6.4 g/dL (6.5-8.0); Triglycerides 96 mg/dL
[2022-06-06 08:15] VITALS: BP 118/77; PULSE 78; RESP 16; TEMP 36.1; O2SAT 99
--- NOTE | 2022-06-06 08:43 | HO.PSYADMNOT ---
HPI Date of Service: 06/06/22 Chief Complaint: Schizophrenia; Anxiety disorder Sources of Information: patient interviewed, chart reviewed and crisis/core team assessment reviewed HPI Subjective Notes: Conditional Voluntary Healthcare Proxy: No Guardianship: No Medical Problems Affecting Mental Status: No Narrative: Arnulfo is a 57-year-old white, , unemployed, man with longstanding history of schizoaffective disorder with numerous psychiatric hospitalizations, the last being several months ago. He went to see a so outpatient clinic in after all where he goes, talking about increased stress in his marriage and ?needed to free his ? and when questions he talked about having suicidal ideations. He denies any actual suicide attempts in the past. He was seen by the crisis team. It appears that he has not been taking his Clozaril at least regularly and possibly here and there with no clear regimen that he could state. He said he may have taken some 2 or 3 days ago but cannot tell me how much and prior to that it was irregular. He was supposed to be on 275 mg. He denies any substance use or abuse. He has been sleeping erratically. He was seen to be responding to internal stimuli. Past Psychiatric History: Psychiatric admission October 2021 at [facility] Psychiatric admission November 2021 at [facility] He says he was admitted to [facility] a few months ago but there is no record development writer can find. Medical Evaluation Reviewed: Hospitalist Jose Pending [facility] Medical History [place] (generalized anxiety disorder) Schizoaffective disorder Narrative: Available records and laboratory studies were reviewed Narrative: Denies Family History: Arnulfo states that both of his parents are . He has 4 siblings. He started having psychiatric problems in the mid s and was at [facility] around that time. He dropped out of school after 9th grade. He denies any history of abuse growing up. He has been to his for 8 years and they have no children but she has 2 children from a previous relationship. He does not work Social History: Lives at home with his Substance History: None reported Trauma History: Deferred for now Diagnostics Vital Signs (24Hr): Vital Signs - 24 hr 06/05/22 22:56 06/06/22 08:15 Temperature 97.4 F 97.0 F Pulse Rate 84 78 Respiratory Rate 18 16 Blood Pressure 131/90 H 118/77 Pulse Oximetry 99 99 Oxygen Delivery Method Room Air Room Air Labs 06/06/22 07:30 Labs: Laboratory Results - last 48 hr 06/06/22 07:30 Sodium 141 Potassium 3.9 Chloride 109 H Carbon Dioxide 24 Anion Gap 12 BUN 16 Creatinine 0.96 Estim Creat Clear Calc TNP Estimated GFR > 60 Fasting Glucose 112 H Calcium 9.7 Total Bilirubin 0.4 AST 26 ALT 26 Alkaline Phosphatase 71 Total Protein 6.4 L Albumin 4.4 Triglycerides 96 Cholesterol 148 LDL Cholesterol, Calc 89 HDL Cholesterol 40 Meds/Allergies Meds Home Medications Medication Instructions Recorded Confirmed Type clozapine 25 mg tablet 75 mg PO BEDTIME 06/06/22 06/06/22 History Allergies Allergies Allergy/AdvReac Type Severity Reaction Status Date / Time No Known Allergies Allergy Verified 04/02/22 14:28 Mental Status Exam Mental Status Exam Narrative: Arnulfo was seen the morning after his admission. He is alert, oriented and cooperative. Speech she is slightly pressured and halting. Minimal eye contact. Affect is appropriate and varied. He is tangential and circumstantial. Thought processes are also repetitive at times. He denies any auditory or visual hallucinations but appears to be responding to internal stimuli. He denies any current active suicidal or homicidal ideations but admits to having had them prior to his admission this time. Judgment is mostly intact Assessment & Plan Assessment & Plan (1) Schizoaffective disorder: Status: Acute Code(s): F25.9 - Schizoaffective disorder, unspecified Plan In conclusion and Arnulfo is admitted for safety and stabilization. He meets criteria for hospital level of care. Since we are unclear about when and how regularly he was taking the Clozaril I will re-initiate at 25 mg b.i.d. to be increased gradually. Laboratory studies were reviewed and will be repeated Patient educated on: diagnosis and medication risk/benefits Reason for continued inpatient stay Substantial Risk for: harm to self and med/psych decompensation Statement Statement: I have reviewed the history and physical and performed a pertinent examination on my patient. No changes have occurred unless specified. If the History and Physical was not performed prior to admission, the Hospitalist's service will be consulted for completing the admission physical. Time Spent With Patient Time: Total time managing care of this patient today ____ minutes.
[2022-06-06 09:07] LABS: Neut%MD 62.7 %; Neutrophils Absolute Auto 3.8 x10*3/uL (2.0-8.3)
[2022-06-06] MEDS: cloZAPine 25 MG TABLET PO ×2 (09:25→21:37)
--- NOTE | 2022-06-06 11:21 | P.CONHOSP_ITS ---
History of Present Illness Data of Consult Service Date: 06/06/22 Requesting physician: Sulema Winslow Primary Care Provider: Unknown Physician HPI Reason for consult: medical H&P 57 year old male with history hypertension, anxiety, schizoaffective disorder admitted to psychiatry with consult placed to medicine for medical H&P. He states he was previously on metoprolol for hypertension but no longer requires medication for this. Does continue smoking 2-3 packs of cigarettes daily but states he is not craving cigarettes on the unit due to absence of triggers. No illicit drug use or alcohol use. He has no complaints at this time. Review of Systems Review of Systems: General: No fevers, malaise, unintentional weight loss HEENT: No blurred vision, diplopia. No sore throat, nasal congestion, rhinorrhea, sinus pain, ear pain Cardiovascular: No chest pain, palpitations, or leg edema Respiratory: No shortness of breath, wheezing, cough GI: No abdominal pain, nausea, vomiting, diarrhea, constipation, melena, hematochezia : No dysuria, hematuria, increased urinary frequency, decreased urinary output MSK: No myalgia, back pain Neuro: No headaches, weakness, paresthesias Psych: + anxiety Skin: No rashes or lesions [facility] Medical History (Updated 06/06/22 @ 11:26 by PRIETO Cade) C[place]TON (generalized anxiety disorder) Hypertension Schizoaffective disorder Social History Household Members: Spouse Housing: House Do you presently have visiting nurse or other home services: Yes Patient Tobacco Use Status: Current everyday Tobacco user Tobacco use type: Cigarette Cigarette Packs Per Day: 1 Cigarettes Per Day: 20.0 Smoked in Last 30 Days: Yes e-Cigarette/Vaping Use: Never Used Patient Interested in Nicotine Replacement: Yes Patient Given Instructions on How to Stop Smoking: Yes Date Education Initiated: 06/05/22 Second Hand Smoke Exposure: Yes Use of substances other than those prescribed or required for medical reasons: No Currently Displaying Signs/Symptoms of Drug Intoxication Withdrawal: No Have you been hit, kicked, punched, or otherwise hurt by someone within the past year? If so, by whom?: No Do you feel safe in your current relationship?: Yes Is there a partner from a previous relationship who is making you feel unsafe now?: No Are you made to feel afraid or neglected: No Spiritual Healthcare Practices: Christian Protestant Healthcare Practices: Christian Cultural Healthcare Practices: none Advance Directives: No Advance Directives Information Provided: Yes Do you have thoughts of harming others: None Do you have a plan to hurt others: No Plan Recently lost weight without trying: No Nutrition Risks: No Nutritional Risk Poor oral hygiene: No service: No Sexual orientation: Straight/Heterosexual Meds Allergies Allergy/AdvReac Type Severity Reaction Status Date / Time No Known Allergies Allergy Verified 04/02/22 14:28 Active Medications: Current Medications Acetaminophen (Acetaminophen 325 Mg Tablet) 650 mg PO Q6H PRN PRN Reason: Headache/Pain Mild Scale (1-3) Al Hydroxide/Mg Hydroxide (Magnesium Hydrox/Alum Hydrox 30 Ml Oral.Susp) 30 ml PO Q6H PRN PRN Reason: Heartburn/Nausea Clozapine (Clozapine 25 Mg Tablet) 25 mg PO BID GENNA Last Admin: 06/06/22 09:25 Dose: 25 mg Magnesium Hydroxide (Milk Of Magnesia 30 Ml Oral.Susp) 30 ml PO DAILY PRN PRN Reason: Constipation Trazodone HCl (Trazodone Hcl 50 Mg Tablet) 50 mg PO BEDTIME PRN PRN Reason: Insomnia Home Medications Medication Instructions Recorded Confirmed Last Taken Type clozapine 25 mg tablet 75 mg PO BEDTIME 06/06/22 06/06/22 Unknown History Physical Exam Vital Signs and Narrative: Vital Signs: Last Vital Signs Temp 97.0 F 06/06/22 08:15 Pulse 78 06/06/22 08:15 Resp 16 06/06/22 08:15 BP 118/77 06/06/22 08:15 Pulse Ox 99 06/06/22 08:15 O2 Del Method 06/06/22 08:15 Constitutional - Awake and Alert, No apparent distress Eyes - PERRLA, EOMI Cardiovascular - S1S2, RRR, No edema Respiratory - Normal lung expansion, Normal respiratory effort, No respiratory distress, CTA bilaterally Gastrointestinal - NT / ND; +BS; No rebound or guarding Extremities - no calf tenderness bilaterally, no swelling Musculoskeletal - Normal inspection, normal ROM Skin - Warm/Dry Neurological - Alert & oriented x3, CN II-XII in tact, 5/5 strength BUE and BLE Psychological - Appropriate affect Results Labs 01/21/23 07:30 Labs: Laboratory Results - last 24 hr 06/06/22 06/06/22 07:30 07:30 Absolute Neuts (auto) 3.8 Anion Gap 12 Estim Creat Clear Calc TNP Estimated GFR > 60 Fasting Glucose 112 H Calcium 9.7 Total Bilirubin 0.4 AST 26 ALT 26 Alkaline Phosphatase 71 Total Protein 6.4 L Albumin 4.4 Triglycerides 96 Cholesterol 148 LDL Cholesterol, Calc 89 HDL Cholesterol 40 Assessment and Plan (1) Routine medical exam: Status: Acute Plan 57 year old male with history hypertension, anxiety, schizoaffective disorder admitted to psychiatry with consult placed to medicine for medical H&P. #Schizoaffective disorder/anxiety -Plan per psychiatry -On clozaril, monitor ANC #History hypertension -Currently normotensive, no intervention needed -Monitor BP #Nicotine dependence -Smokes 2-3 packs cigarettes per day -Using NRT -Counseled on cessation Thank you for allowing me to participate in this consult. Signing off at this time. Please do not hesitate to call for further questions. Time Spent With Patient Time: Total time managing care of this patient today ____ minutes.
[2022-06-06 19:50] VITALS: BP 131/83; PULSE 68; RESP 18; TEMP 36.6; O2SAT 100
[2022-06-06] MEDS: LORazepam 1 MG TABLET PO (23:09)
[2022-06-06] MEDS: OLANZapine 10 MG TABLET PO (23:09)
--- NOTE | 2022-06-07 07:39 | HO.PSYCHPN ---
Subjective Subjective Date of Service: 06/07/22 Reason For Visit: Schizophrenia; Anxiety disorder Subjective Notes: Conditional Voluntary and 3 Day Healthcare Proxy: No Guardianship: No Medical Problems Affecting Mental Status: No Interim History: Patient was seen and discussed in rounds today. Records and plans were reviewed. Labs were reviewed. He continues to have self dialogue. He denies AVH but appears to be responding to internal stimuli. He also has been very labile emotionally with bizarre behaviors and gesturing. He was very much fixated on his Clozaril and wanted to go up to a higher dose but was informed of the fact that he needs to start all over again because of the interruption and irregular use. He did have trouble sleeping and 1 time Zyprexa and Ativan were ordered and he did sleep several hours after that. Medication Compliance: Yes Side effects from medications: No Attending Groups: No Review of Systems Review of Systems Yes all other systems are reviewed and are negative Mental Status Exam Mental Status Exam Narrative: In today's visit he is alert, oriented and cooperative. Speech is soft-spoken and halting. No eye contact. Affect is appropriate and varied. He is tangential and circumstantial. He denies any auditory or visual hallucinations but appears to be responding to internal stimuli. He denies any current active suicidal or homicidal ideations. Judgment is marginally intact Diagnostics Vital Signs (24Hr): Vital Signs - 24 hr 06/06/22 08:15 06/06/22 19:50 Temperature 97.0 F 97.8 F Pulse Rate 78 68 Respiratory Rate 16 18 Blood Pressure 118/77 131/83 Pulse Oximetry 99 100 Oxygen Delivery Method Room Air Room Air Labs 06/06/22 07:30 Labs: Laboratory Results - last 48 hr 06/06/22 06/06/22 07:30 07:30 Absolute Neuts (auto) 3.8 Sodium 141 Potassium 3.9 Chloride 109 H Carbon Dioxide 24 Anion Gap 12 BUN 16 Creatinine 0.96 Estim Creat Clear Calc TNP Estimated GFR > 60 Fasting Glucose 112 H Calcium 9.7 Total Bilirubin 0.4 AST 26 ALT 26 Alkaline Phosphatase 71 Total Protein 6.4 L Albumin 4.4 Triglycerides 96 Cholesterol 148 LDL Cholesterol, Calc 89 HDL Cholesterol 40 Medications Medications Current Medications Acetaminophen (Acetaminophen 325 Mg Tablet) 650 mg PO Q6H PRN PRN Reason: Headache/Pain Mild Scale (1-3) Al Hydroxide/Mg Hydroxide (Magnesium Hydrox/Alum Hydrox 30 Ml Oral.Susp) 30 ml PO Q6H PRN PRN Reason: Heartburn/Nausea Clozapine (Clozapine 25 Mg Tablet) 25 mg PO BID GENNA Last Admin: 06/06/22 21:37 Dose: 25 mg Magnesium Hydroxide (Milk Of Magnesia 30 Ml Oral.Susp) 30 ml PO DAILY PRN PRN Reason: Constipation Trazodone HCl (Trazodone Hcl 50 Mg Tablet) 50 mg PO BEDTIME PRN PRN Reason: Insomnia Allergies Allergies Allergy/AdvReac Type Severity Reaction Status Date / Time No Known Allergies Allergy Verified 04/02/22 14:28 Assessment & Plan Assessment & Plan (1) Routine medical exam: Status: Acute Code(s): Z00.00 - Encounter for general adult medical examination without abnormal findings Plan 57 year old male with history hypertension, anxiety, schizoaffective disorder admitted to psychiatry with consult placed to medicine for medical H&P. #Schizoaffective disorder/anxiety -Plan per psychiatry -On clozaril, monitor ANC #History hypertension -Currently normotensive, no intervention needed -Monitor BP #Nicotine dependence -Smokes 2-3 packs cigarettes per day -Using NRT -Counseled on cessation Thank you for allowing me to participate in this consult. Signing off at this time. Please do not hesitate to call for further questions. 06/07: Continue current regimen and plans Patient educated on: medication risk/benefits Reason for contiued inpatient stay Substantial Risk for: med/psych decompensation Time Spent With Patient Time: Total time managing care of this patient today ____ minutes.
[2022-06-07] MEDS: cloZAPine 25 MG TABLET PO ×2 (07:53→22:18)
[2022-06-07 08:08] VITALS: BP 125/64; PULSE 71; RESP 16; TEMP 36.4; O2SAT 98
[2022-06-07] MEDS: OLANZapine 10 MG TABLET PO ×3 (08:30→22:18)
[2022-06-07] MEDS: Mineral Oil/Petrolatum,White 106 GM Tube 1 APPL TOPICAL (14:47)
[2022-06-07 20:10] VITALS: BP 123/63; PULSE 72; RESP 16; TEMP 36.6; O2SAT 99
[2022-06-07] MEDS: LORazepam 1 MG TABLET PO (22:18)
[2022-06-08] MEDS: cloZAPine 25 MG TABLET PO (08:38)
[2022-06-08 08:40] VITALS: BP 112/71; PULSE 54; RESP 18; TEMP 36.3; O2SAT 98
--- NOTE | 2022-06-08 13:30 | P.PNPSI_ITS ---
Subjective Subjective Date of Service: 06/08/22 Reason For Visit: Schizophrenia; Anxiety disorder Subjective Notes: Garrido Warning Interim History: pt appears somewhat distracted and with odd affectations, moving in somewhat jerky, bird-like movements. generally linear and logical, answering questions cogently. interested in titrating clozaril up. discussed his 3-day notice filing, gave garrido warning, discussed his need to rescind the notice if he would like to stay past wednesday, which MD recommends. he appears open to the idea, and we discuss his leaving by the following or perhaps as soon as next wednesday. per staff, submitted 3-day notice, up 06/10. agitated yesterday. self- dialogue, bizarre movements. got zyprexa 10 PRN with good effect. Mental Status Exam Mental Status Exam Narrative: In today's visit he is alert, oriented and cooperative. Speech is nml loudness and amount, incr rate. fair eye contact. Affect is appropriate and varied. He is generally able to linearly and logically answer questions when structure is provided to him. possibly RIS. no SI/HI/AVH expressed. Judgment is marginally intact Diagnostics Vital Signs (24Hr): Vital Signs - 24 hr 06/07/22 20:10 06/08/22 08:40 Temperature 97.9 F 97.4 F Pulse Rate 72 54 Respiratory Rate 16 18 Blood Pressure 123/63 112/71 Pulse Oximetry 99 98 Oxygen Delivery Method Room Air Room Air Labs 06/06/22 07:30 Medications Medications Current Medications Acetaminophen (Acetaminophen 325 Mg Tablet) 650 mg PO Q6H PRN PRN Reason: Headache/Pain Mild Scale (1-3) Al Hydroxide/Mg Hydroxide (Magnesium Hydrox/Alum Hydrox 30 Ml Oral.Susp) 30 ml PO Q6H PRN PRN Reason: Heartburn/Nausea Lorazepam (Lorazepam 1 Mg Tablet) 1 mg PO BEDTIME PRN PRN Reason: Sleep Last Admin: 06/07/22 22:18 Dose: 1 mg Magnesium Hydroxide (Milk Of Magnesia 30 Ml Oral.Susp) 30 ml PO DAILY PRN PRN Reason: Constipation Multi-Ingred Cream/Lotion/Oil/Oint (Mineral Oil/Petrolatum,White 106 Gm Tube) 1 appl TOPICAL Q2H PRN; Protocol PRN Reason: dry hands Olanzapine (Olanzapine 10 Mg Tablet) 10 mg PO ONCE PRN PRN Reason: anxiety/restlessness Last Admin: 06/07/22 08:30 Dose: 10 mg Olanzapine (Olanzapine 10 Mg Tablet) 10 mg PO TID PRN PRN Reason: psychosis/ agitation Last Admin: 06/07/22 22:18 Dose: 10 mg Trazodone HCl (Trazodone Hcl 50 Mg Tablet) 50 mg PO BEDTIME PRN PRN Reason: Insomnia Allergies Allergies Allergy/AdvReac Type Severity Reaction Status Date / Time No Known Allergies Allergy Verified 04/02/22 14:28 Assessment & Plan Assessment & Plan (1) Schizoaffective disorder: Status: Acute Code(s): F25.9 - Schizoaffective disorder, unspecified Plan 06/06: In conclusion and Arnulfo is admitted for safety and stabilization.? He meets criteria for hospital level of care.? Since we are unclear about when and how regularly he was taking the Clozaril I will re-initiate at 25 mg b.i.d. to be increased gradually.? 06/07: no changes made. 06/08: increased clozaril to 50 BID. will increase by 50 mg daily until target dose of 225-275 mg reached. Patient educated on: medication risk/benefits Reason for contiued inpatient stay Substantial Risk for: inability to function and rapid decompensation Time Spent With Patient Time: Total time managing care of this patient today __25__ minutes.
--- NOTE | 2022-06-08 17:19 | PC.NURSE ---
Patient offered flu vaccine, Patient refused.
[2022-06-08 21:09] VITALS: BP 148/70; PULSE 66; RESP 16; TEMP 36.4; O2SAT 96
[2022-06-08] MEDS: OLANZapine 10 MG TABLET PO (21:11)
[2022-06-08] MEDS: LORazepam 1 MG TABLET PO (21:11)
[2022-06-08] MEDS: cloZAPine 25 MG TABLET 50 MG PO (21:11)
[2022-06-08] MEDS: Mineral Oil/Petrolatum,White 106 GM Tube 1 APPL TOPICAL (21:39)
[2022-06-09 08:00] VITALS: BP 112/62; PULSE 73; TEMP 36.6; O2SAT 98
[2022-06-09] MEDS: cloZAPine 25 MG TABLET 50 MG PO (08:13)
--- NOTE | 2022-06-09 15:05 | HO.PSYCHPN ---
Subjective Subjective Date of Service: 06/09/22 Reason For Visit: Schizophrenia; Anxiety disorder Interim History: no change from yesterday's presentation. generally linear and logical, appears somewhat distracted and with spontaneous movements of his upper extremities B/L. c/o morning sedation with a.m. dose of clozaril, agrees to switch dosing to 100% HS. will give 150 mg tonight, 20 mg tomorrow night, and 275 mg the following night. rescinded 3-day notice. per staff, stable. Mental Status Exam Mental Status Exam Narrative: In today's visit he is alert, oriented and cooperative. Speech is nml loudness and amount, incr rate. fair eye contact. Affect is appropriate and varied. He is generally able to linearly and logically answer questions when structure is provided to him. possibly RIS. no SI/HI/AVH expressed. Judgment is marginally intact Diagnostics Vital Signs (24Hr): Vital Signs - 24 hr 06/08/22 21:09 06/09/22 08:00 Temperature 97.6 F 97.8 F Pulse Rate 66 73 Respiratory Rate 16 Blood Pressure 148/70 H 112/62 Pulse Oximetry 96 98 Oxygen Delivery Method Room Air Room Air Labs 06/06/22 07:30 Medications Medications Current Medications Acetaminophen (Acetaminophen 325 Mg Tablet) 650 mg PO Q6H PRN PRN Reason: Headache/Pain Mild Scale (1-3) Al Hydroxide/Mg Hydroxide (Magnesium Hydrox/Alum Hydrox 30 Ml Oral.Susp) 30 ml PO Q6H PRN PRN Reason: Heartburn/Nausea Clozapine (Clozapine 25 Mg Tablet) 150 mg PO ONCE ONE Stop: 06/09/22 21:01 Clozapine (Clozapine 100 Mg Tablet) 200 mg PO ONCE ONE Stop: 06/10/22 21:01 Clozapine (Clozapine 25 Mg Tablet) 275 mg PO BEDTIME GENNA Lorazepam (Lorazepam 1 Mg Tablet) 1 mg PO BEDTIME PRN PRN Reason: Sleep Last Admin: 06/08/22 21:11 Dose: 1 mg Magnesium Hydroxide (Milk Of Magnesia 30 Ml Oral.Susp) 30 ml PO DAILY PRN PRN Reason: Constipation Multi-Ingred Cream/Lotion/Oil/Oint (Mineral Oil/Petrolatum,White 106 Gm Tube) 1 appl TOPICAL Q2H PRN; Protocol PRN Reason: dry hands Last Admin: 06/08/22 21:39 Dose: 1 appl Nicotine Polacrilex (Nicotine Polacrilex 2 Mg Gum) 4 mg BUCCAL Q2H PRN PRN Reason: Nicotine Cravings Olanzapine (Olanzapine 10 Mg Tablet) 10 mg PO ONCE PRN PRN Reason: anxiety/restlessness Last Admin: 06/07/22 08:30 Dose: 10 mg Olanzapine (Olanzapine 10 Mg Tablet) 10 mg PO TID PRN PRN Reason: psychosis/ agitation Last Admin: 06/08/22 21:11 Dose: 10 mg Trazodone HCl (Trazodone Hcl 50 Mg Tablet) 50 mg PO BEDTIME PRN PRN Reason: Insomnia Allergies Allergies Allergy/AdvReac Type Severity Reaction Status Date / Time No Known Allergies Allergy Verified 04/02/22 14:28 Assessment & Plan Assessment & Plan (1) Schizoaffective disorder: Status: Acute Code(s): F25.9 - Schizoaffective disorder, unspecified Plan 06/06: In conclusion and Arnulfo is admitted for safety and stabilization.? He meets criteria for hospital level of care.? Since we are unclear about when and how regularly he was taking the Clozaril I will re-initiate at 25 mg b.i.d. to be increased gradually.? 06/07: no changes made. 06/08: increased clozaril to 50 BID. will increase by 50 mg daily until target dose of 225-275 mg reached. 06/09: dosing changed to 150 tonight, 200 tomorrow night, and on to 275 thereafter. pt c/o morning sedation with clozaril and requested all-HS regimen. Patient educated on: medication risk/benefits Reason for contiued inpatient stay Substantial Risk for: inability to function and rapid decompensation Time Spent With Patient Time: Total time managing care of this patient today _25___ minutes.
[2022-06-09 21:00] VITALS: BP 130/70; PULSE 76; RESP 18; TEMP 36.1; O2SAT 95
[2022-06-09] MEDS: LORazepam 1 MG TABLET PO (22:20)
[2022-06-09] MEDS: cloZAPine 25 MG TABLET 150 MG PO (22:21)
[2022-06-09] MEDS: OLANZapine 10 MG TABLET PO (22:21)
[2022-06-10 09:40] VITALS: BP 130/84; PULSE 91; RESP 16; TEMP 36.2; O2SAT 98
[2022-06-10] MEDS: Mineral Oil/Petrolatum,White 106 GM Tube 1 APPL TOPICAL (11:38)
--- NOTE | 2022-06-10 13:54 | P.PNPSI_ITS ---
Subjective Subjective Date of Service: 06/10/22 Reason For Visit: Schizophrenia; Anxiety disorder Interim History: calm, cooperative. somewhat bizarre and disorganized, but pleasant. reports he slept well and is in a good humor. encouraged to NOT take zyprexa and ativan PRNs as we escalate his clozapine dosing. planning for discharge wednesday. per staff, sleeping well. no dep/AVH. no SI/HI. loose. singing. self- dialoguing. eating. safe. Mental Status Exam Mental Status Exam Narrative: In today's visit he is alert, oriented and cooperative. Speech is nml loudness and amount, incr rate. fair eye contact. Affect is appropriate and varied. He is generally able to linearly and logically answer questions when structure is provided to him. possibly RIS. no SI/HI/AVH expressed. Judgment is marginally intact Diagnostics Vital Signs (24Hr): Vital Signs - 24 hr 06/09/22 21:00 06/10/22 09:40 Temperature 96.9 F 97.2 F Pulse Rate 76 91 Respiratory Rate 18 16 Blood Pressure 130/70 130/84 Pulse Oximetry 95 98 Oxygen Delivery Method Room Air Room Air Labs 06/06/22 07:30 Medications Medications Current Medications Acetaminophen (Acetaminophen 325 Mg Tablet) 650 mg PO Q6H PRN PRN Reason: Headache/Pain Mild Scale (1-3) Al Hydroxide/Mg Hydroxide (Magnesium Hydrox/Alum Hydrox 30 Ml Oral.Susp) 30 ml PO Q6H PRN PRN Reason: Heartburn/Nausea Clozapine (Clozapine 100 Mg Tablet) 200 mg PO ONCE ONE Stop: 06/10/22 21:01 Clozapine (Clozapine 25 Mg Tablet) 275 mg PO BEDTIME GENNA Lorazepam (Lorazepam 0.5 Mg Tablet) 0.5 mg PO BEDTIME PRN PRN Reason: Sleep Magnesium Hydroxide (Milk Of Magnesia 30 Ml Oral.Susp) 30 ml PO DAILY PRN PRN Reason: Constipation Multi-Ingred Cream/Lotion/Oil/Oint (Mineral Oil/Petrolatum,White 106 Gm Tube) 1 appl TOPICAL Q2H PRN; Protocol PRN Reason: dry hands Last Admin: 06/10/22 11:38 Dose: 1 appl Nicotine Polacrilex (Nicotine Polacrilex 2 Mg Gum) 4 mg BUCCAL Q2H PRN PRN Reason: Nicotine Cravings Olanzapine (Olanzapine 10 Mg Tablet) 10 mg PO ONCE PRN PRN Reason: anxiety/restlessness Last Admin: 06/07/22 08:30 Dose: 10 mg Olanzapine (Olanzapine 5 Mg Tablet) 5 mg PO TID PRN PRN Reason: psychosis/ agitation Trazodone HCl (Trazodone Hcl 50 Mg Tablet) 50 mg PO BEDTIME PRN PRN Reason: Insomnia Allergies Allergies Allergy/AdvReac Type Severity Reaction Status Date / Time No Known Allergies Allergy Verified 04/02/22 14:28 Assessment & Plan Assessment & Plan (1) Schizoaffective disorder: Status: Acute Code(s): F25.9 - Schizoaffective disorder, unspecified Plan 06/06: In conclusion and Arnulfo is admitted for safety and stabilization.? He meets criteria for hospital level of care.? Since we are unclear about when and how regularly he was taking the Clozaril I will re-initiate at 25 mg b.i.d. to be increased gradually.? 06/07: no changes made. 06/08: increased clozaril to 50 BID. will increase by 50 mg daily until target dose of 225-275 mg reached. 06/09: dosing changed to 150 tonight, 200 tomorrow night, and on to 275 thereafter. pt c/o morning sedation with clozaril and requested all-HS regimen. 06/10: to receive clozaril 200 mg tonight. dosing of ativan and zyprexa PRNs cut in half, pt discouraged from taking as we escalate dosing. planning for wednesday discharge. Reason for contiued inpatient stay Substantial Risk for: inability to function and rapid decompensation Time Spent With Patient Time: Total time managing care of this patient today __20__ minutes.
[2022-06-10 20:00] VITALS: BP 150/89; PULSE 87; TEMP 36.6; O2SAT 95
[2022-06-10] MEDS: cloZAPine 100 MG TABLET 200 MG PO (20:35)
[2022-06-11 08:30] VITALS: BP 142/83; PULSE 96; RESP 16; TEMP 36.3; O2SAT 98
[2022-06-11] MEDS: Mineral Oil/Petrolatum,White 106 GM Tube 1 APPL TOPICAL ×2 (10:32→16:44)
--- NOTE | 2022-06-11 14:20 | HO.PSYCHPN ---
Subjective Subjective Date of Service: 06/11/22 Reason For Visit: Schizophrenia; Anxiety disorder Interim History: calm, cooperative. amiable, chatty. does c/o having gotten up at 0200 and being up the rest of the night. informed he will be increasing his clozapine dosing to 275 mg tonight and should expect more sedation. still planning for discharge tomorrow. per staff, guarded, loose associations. attended art group. eating and sleeping. showered. outburst in group when limit set. 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 Mental Status Exam Mental Status Exam Narrative: In today's visit he is alert, oriented and cooperative. Speech is nml loudness and amount, incr rate. fair eye contact. Affect is appropriate and varied. He is generally able to linearly and logically answer questions when structure is provided to him. no SI/HI/AVH expressed. Judgment is marginally intact Diagnostics Vital Signs (24Hr): Vital Signs - 24 hr 06/10/22 20:00 06/11/22 08:30 Temperature 97.8 F 97.4 F Pulse Rate 87 96 Respiratory Rate 16 Blood Pressure 150/89 H 142/83 H Pulse Oximetry 95 98 Oxygen Delivery Method Room Air Room Air Labs 06/06/22 07:30 Medications Medications Current Medications Acetaminophen (Acetaminophen 325 Mg Tablet) 650 mg PO Q6H PRN PRN Reason: Headache/Pain Mild Scale (1-3) Al Hydroxide/Mg Hydroxide (Magnesium Hydrox/Alum Hydrox 30 Ml Oral.Susp) 30 ml PO Q6H PRN PRN Reason: Heartburn/Nausea Clozapine (Clozapine 25 Mg Tablet) 275 mg PO BEDTIME GENNA Magnesium Hydroxide (Milk Of Magnesia 30 Ml Oral.Susp) 30 ml PO DAILY PRN PRN Reason: Constipation Multi-Ingred Cream/Lotion/Oil/Oint (Mineral Oil/Petrolatum,White 106 Gm Tube) 1 appl TOPICAL Q2H PRN; Protocol PRN Reason: dry hands Last Admin: 06/11/22 10:32 Dose: 1 appl Nicotine Polacrilex (Nicotine Polacrilex 2 Mg Gum) 4 mg BUCCAL Q2H PRN PRN Reason: Nicotine Cravings Olanzapine (Olanzapine 10 Mg Tablet) 10 mg PO ONCE PRN PRN Reason: anxiety/restlessness Last Admin: 06/07/22 08:30 Dose: 10 mg Trazodone HCl (Trazodone Hcl 50 Mg Tablet) 50 mg PO BEDTIME PRN PRN Reason: Insomnia Allergies Allergies Allergy/AdvReac Type Severity Reaction Status Date / Time No Known Allergies Allergy Verified 04/02/22 14:28 Assessment & Plan Assessment & Plan (1) Schizoaffective disorder: Status: Acute Code(s): F25.9 - Schizoaffective disorder, unspecified Plan 06/06: In conclusion and Arnulfo is admitted for safety and stabilization.? He meets criteria for hospital level of care.? Since we are unclear about when and how regularly he was taking the Clozaril I will re-initiate at 25 mg b.i.d. to be increased gradually.? 06/07: no changes made. 06/08: increased clozaril to 50 BID. will increase by 50 mg daily until target dose of 225-275 mg reached. 06/09: dosing changed to 150 tonight, 200 tomorrow night, and on to 275 thereafter. pt c/o morning sedation with clozaril and requested all-HS regimen. 06/10: to receive clozaril 200 mg tonight. dosing of ativan and zyprexa PRNs cut in half, pt discouraged from taking as we escalate dosing. planning for wednesday discharge. 06/11: to receive clozaril 275 tonight. ativan and zyprexa PRNs DCed. discharge tomorrow. Reason for contiued inpatient stay Substantial Risk for: inability to function and rapid decompensation Time Spent With Patient Time: Total time managing care of this patient today __25__ minutes.
[2022-06-11 19:30] VITALS: BP 131/86; PULSE 89; RESP 16; TEMP 36.7; O2SAT 98
[2022-06-12 08:00] VITALS: BP 119/83; PULSE 97; RESP 16; TEMP 36.9; O2SAT 98
[2022-06-12] MEDS: Mineral Oil/Petrolatum,White 106 GM Tube 1 APPL TOPICAL (08:07)
--- NOTE | 2022-06-12 11:07 | P.DS_ITS ---
DS: Providers Provider Date of Service: 06/12/22 Date of admission: 06/05/22 22:30 Primary care physician: Unknown Physician Consults: 06/05/22 18:50 Consult to Hospitalist Routine Consulting Provider: Hospitalist Reason For Exam: transfer from [facility] DS: Diagnosis Discharge Diagnosis (1) Schizoaffective disorder: Status: Acute DS: Medications Discharge Medications Home Medications: Previous Rx's Medication Instructions Recorded clozapine 200 mg tablet 200 mg PO BEDTIME 30 days #30 tabs 06/12/22 clozapine 25 mg tablet 75 mg PO BEDTIME 30 days #90 tabs 06/12/22 white petrolatum-mineral oil 1 appl topical Q2H PRN dry hands 06/12/22 topical cream (Dermacerin topical 30 days #454 grams cream) Mental Status Exam Mental Status Exam Narrative: In today's visit he is alert, oriented and cooperative. Speech is nml loudness and amount, incr rate. fair eye contact. Affect is appropriate and varied. He is generally able to linearly and logically answer questions when structure is provided to him. no SI/HI/AVH. Judgment is marginally intact Data Data Completed and Pending Completed studies during hospitalization [Text1]: 06/06/22 06/06/22 07:30 07:30 Absolute Neuts (auto) 3.8 Sodium 141 Potassium 3.9 Chloride 109 H Carbon Dioxide 24 Anion Gap 12 BUN 16 Creatinine 0.96 Estim Creat Clear Calc TNP Estimated GFR > 60 Fasting Glucose 112 H Calcium 9.7 Total Bilirubin 0.4 AST 26 ALT 26 Alkaline Phosphatase 71 Total Protein 6.4 L Albumin 4.4 Triglycerides 96 Cholesterol 148 LDL Cholesterol, Calc 89 HDL Cholesterol 40 DS: Summary Hospital Course Hospital Course: per 06/06 admission note: Arnulfo is a 57-year-old white, , unemployed, man with longstanding history of schizoaffective disorder with numerous psychiatric hospitalizations, the last being several months ago.? He went to see a so outpatient clinic in after all where he goes, talking about increased stress in his marriage and ?needed to free his ? and when questions he talked about having suicidal ideations.? He denies any actual suicide attempts in the past.? He was seen by the crisis team.? It appears that he has not been taking his Clozaril at least regularly and possibly here and there with no clear regimen that he could state.? He said he may have taken some 2 or 3 days ago but cannot tell me how much and prior to that it was irregular.? He was supposed to be on 275 mg.? He denies any substance use or abuse.? He has been sleeping erratically.? He was seen to be responding to internal stimuli. Past Psychiatric History: Psychiatric admission October 2021 at [facility] Psychiatric admission November 2021 at [facility] He says he was admitted to [facility] a few months ago but there is no record com writer can find. Medical Evaluation Reviewed: Hospitalist Jose Pending [facility] Medical History? [place] (generalized anxiety disorder) Schizoaffective disorder Narrative: Available records and laboratory studies were reviewed Narrative: Denies Family History: Arnulfo states that both of his parents are .? He has 4 siblings.? He started having psychiatric problems in the mid and was at [facility] around that time.? He dropped out of school after 9th grade.? He denies any history of abuse growing up.? He has been to his for 8 years and they have no children but she has 2 children from a previous relationship.? He does not work Social History: Lives at home with his Substance History: None reported Trauma History: Deferred for now Precis: 06/06:? Arnulfo is admitted for safety and stabilization.? He meets criteria for hospital level of care.? Since we are unclear about when and how regularly he was taking the Clozaril I will re-initiate at 25 mg b.i.d. to be increased gradually.? 06/07: no changes made. 06/08: increased clozaril to 50 BID.? will increase by 50 mg daily until target dose of 225-275 mg reached. 06/09: dosing changed to 150 tonight, 200 tomorrow night, and on to 275 thereafter.? pt c/o morning sedation with clozaril and requested all-HS regimen. 06/10: to receive clozaril 200 mg tonight.? dosing of ativan and zyprexa PRNs cut in half, pt discouraged from taking as we escalate dosing.? planning for wednesday discharge. 06/11: to receive clozaril 275 tonight.? ativan and zyprexa PRNs DCed.? discharge tomorrow. 06/12: at 275 mg, discharged per pt request. remains moderately disorganized and with bizarre mannerisms, but not dangerous or gravely disabled. Time Spent with Patient Time attestation: Total time managing care of this patient today ____ minutes. Time spent: Greater than 30 minutes Discharge Plan Discharge Anticipated Discharge Date/Time: 06/12/22 11:05 Patient Disposition: Home, Self-Care Discharge Diagnosis: Schizoaffective Disorder, Bipolar Type Referrals: [facility] [Other] - 06/17/22 11:00 am ( Patient had previously scheduled appointment for Jun 17) [facility] [Other] - 1 Week (Patient already set up with services as his has same.) Discharge Medications: New Dermacerin Cream 1 appl topical Q2H PRN (Reason: dry hands) 30 Days Qty: 454 0RF Protocol: Apply to: Apply to: bilateral hands Continued clozapine 200 mg tablet 200 mg PO BEDTIME 30 Days Qty: 30 0RF Rx Instructions: total 275 mg HS Changed clozapine 25 mg tablet 75 mg PO BEDTIME 30 Days Qty: 90 0RF Rx Instructions: total 275 mg HS Discharge Orders: Discharge Order (Routine); Ordered 06/12/22 Ordered By: Montana Murphy Diet: Advance to usual diet Activity on Discharge: As tolerated Stand Alone Forms: Patient Portal Discharge page Care Plan Goals: remain safe and stable in the outpatient treatment setting Health Concerns: none Plan of Treatment: take medications as prescribed, attend appointments as scheduled Assessment: not at imminent risk of harm to self or others
--- NOTE | 2022-06-12 11:21 | PC.NURSE ---
Pt is alert, fully oriented pleasant and cooperative with discharge plan. He denies current physical complaint. He verbalizes understanding of discharge medications and appointments. He denies ideation, plan or intent to harm self or others.
== END 2022-06-12 11:58 | disposition home or self-care (01) | DRG 885 ==
PROVIDERS: Clinical Nurse Specialist Psychiatric/Mental Health, Adult; Psychiatry & Neurology Psychiatry; Admitting Provider Psychiatry & Neurology Psychiatry; Visit Provider Psychiatry & Neurology Psychiatry
DX: F25.0 Schizoaffective disorder, bipolar type (principal); F41.1 Generalized anxiety disorder; I10 Essential (primary) hypertension; F17.210 Nicotine dependence, cigarettes, uncomplicated; Z71.6 Tobacco abuse counseling; Z56.0 Unemployment, unspecified; Z79.899 Other long term (current) drug therapy
CPT/HCPCS: 36415; 80053; 80061; 85048